=== PATIENT | female | born 2000 | race Caucasian/White ===

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

== ENCOUNTER → 2020-01-19 09:28 | Outpatient (CLI) | payer OTHER, SELFPAY ==
--- NOTE | 2020-01-19 09:35 | XR_ITS ---
PROCEDURE: XR KNEE LT 4V weightbearing CLINICAL INDICATION: left knee pain COMPARISON: KNEE3R KNEE-3 VIEWS-RT from 08/18/2017 KNEE3R KNEE-3 VIEWS-RT from 08/20/2017 [id number] XR knee RT 3V from 04/14/2018 XR KNEE LT 3V from 01/12/2020 FINDINGS: No fracture or dislocation. No lytic or blastic change. There is normal mineralization. There is mild degenerative loss of medial compartment cartilaginous joint space. Small sclerotic foci in the distal femur are unchanged and likely benign bone islands. Other findings:None. IMPRESSION: No acute findings. Dictated by: Basil Montgomery 01/19/2020 10:12 Electronically signed by Basil Montgomery in [place] 01/19/2020 10:12
--- NOTE | 2020-01-19 09:35 | XR_ITS ---
PROCEDURE: XR SHOULDER RT 1V-axillary view CLINICAL INDICATION: right shoulder pain COMPARISON: [id number] [id number] VIEWS from 03/05/2015 XR SHOULDER RT MIN 2V from 01/12/2020 FINDINGS: There is no acute fracture dislocation or other focal bony lesion. Previous shoulder exam raise the question of AC joint separation. Dedicated AC joint exam with and without weights may be useful to further evaluate if felt to be clinically indicated. IMPRESSION: No acute findings. Dictated by: Basil Montgomery 01/19/2020 10:15 Electronically signed by Basil Montgomery in [place] 01/19/2020 10:15
== END ==
PROVIDERS: PCP Emergency Medicine; Visit Provider Orthopaedic Surgery
DX: M25.562 Pain in left knee (principal); M25.511 Pain in right shoulder
CPT/HCPCS: 73020; 73564

== ENCOUNTER 2020-02-12 09:00 | Outpatient (RCR) | payer OTHER, SELFPAY ==
--- NOTE | 2020-02-01 16:04 | HMH.PTOPEV ---
PT Outpatient Evaluation Rehab PT Outpatient Evaluation Start: 02/01/20 15:01 Freq: Status: Active Protocol: Document 02/01/20 15:40 ANGELA (Rec: 02/01/20 16:04 ANGELA [id number]) Electronically Signed By Jeovanny Herzog, PT 02/01/20 15:40 Outpatient Therapy Subjective History Subjective History Pt presents s/p work-related injury ~2 weeks d/t fall, with insult to R shoulder and L knee. Pt reports 'it felt like my left knee hyperextended and I landed on my right shoulder'. Pt reports ' grinding' in R SH with activity, and 'inside and back ' instability in L knee w/wt. bearing activity. 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 Chief Complaint Pain,Swelling,Gives out/ Unstable,Weakness Symptom Type Ache,Dull Symptoms Relieved By Rest/Positioning,Heat Symptoms Aggravated By Standing,Physical Activity, Twisting,Walking,Lifting Prior Functional Limitations None Current Functional Limitations Reaching,Lifting,Housework, Standing,Squatting,Walking, Stairs Symptom Description Constant but Variable Level of pain today (0-10) 7 Pain scale - at its best (0-10) 5 Pain scale - at its worst (0-10) 9 Shoulder/Elbow Eval Shoulder Objective Measurements Palpation Tenderness tenderness shoulder exam standard right Shoulder Palpation Overall Comment 3/4-global (AC,UT MM, ANT RTC, POST RTC) Posture Scapular Posture Standing Position (L) Protracted,(R) Protracted Flexibilty Deficits Pectoralis Major Muscle Length (R) Mild Tightness,(L) Mild Tightness Upper Trapezius Muscle Length (R) Moderate Tightness Shoulder ROM Right Shoulder Abduction Active Range of 0-55 Motion (degrees) Shoulder Abduction Passive Range of 0-90 Motion (degrees) Shoulder Flexion Active Range of Motion 0-65 (degrees) Query Text: Shoulder Flexion Passive Range of Motion 0-90 (degrees) Shoulder External Rotation Passive Range 0-70 of Motion (degrees) Shoulder Internal Rotation Passive Range 0-70 of Motion (degrees) Shoulder MMT Shoulder Abduction Strength Grade 3- Fair-
== END 2020-02-12 09:05 | disposition home or self-care (01) ==
LOC: PT 09:00
PROVIDERS: Visit Provider Orthopaedic Surgery
DX: S49.90XA Unspecified injury of shoulder and upper arm, unspecified arm, initial encounter (principal); S83.92XA Sprain of unspecified site of left knee, initial encounter
CPT/HCPCS: 97010; 97014; 97035; 97110; 97163; G0283

== ENCOUNTER 2020-03-27 23:03 | Emergency (ER) | payer OTHER, SELFPAY ==
[2020-03-27 23:21] VITALS: BP 103/82; PULSE 121; RESP 14; TEMP 37; O2SAT 95; BMI 31.9
[2020-03-28] VITALS: BP 104/66; PULSE 118; RESP 14; O2SAT 96
[2020-03-28 00:30] VITALS: BP 103/70; PULSE 122; RESP 14; O2SAT 97
[2020-03-28 00:46] VITALS: BP 104/71; PULSE 85; RESP 16; TEMP 36.9; O2SAT 99
--- NOTE | 2020-03-28 00:46 | HMH.EDWNDL ---
ED Disposition Clinical Impression: Laceration Disposition: Home, Self-Care Condition on Discharge: Good Instructions: DI for Laceration Repair Additional Instructions: sutures out 10 days and recheck if needed Referrals: Murtaza Rivera MD [Primary Care Provider] - - Critical Care Critical Care Time: No Attestation: On 03/27/20, the high probability of a clinically significant, sudden or life threatening deterioration of the following system(s) required my full and direct attention, intervention and personal management. The time I documented below is in addition to time spent performing reported procedures but includes the following listed in this critical care notation. Medical Decision Making - Medical Records Medical records reviewed: Yes: I reviewed the patient's medical records. - Сергей Inquiry Pt receiving controlled substance: No Vital Signs: 03/27/20 23:21 03/28/20 00:00 03/28/20 00:30 Temperature 98.6 F Temperature Source Oral Pulse Rate [Left Brachial] 121 H 118 H 122 H Respiratory Rate 14 14 14 Blood Pressure [Left Arm] 103/82 L 104/66 L 103/70 L Blood Pressure Mean [Left Arm] 89 78 81 Blood Pressure Source [Left Arm] Automatic Cuff Automatic Cuff Automatic Cuff Blood Pressure Position [Left Arm] Sitting Sitting Sitting 02 Sat by Pulse Oximetry 95 96 97 Oxygen Delivery Method Room Air Room Air Room Air Wound/Laceration HPI - General Chief Complaint: Wound/Laceration Stated Complaint: AO 03/27/20 22:50 laceration to right hand Time Seen by Provider: 03/28/20 00:00 Mode of Arrival: Ambulatory Source of Information: Patient, Medical Record Limitations: No Limitations Description of Symptoms (Recalled from ER Triage Doc. by RN): Patient reports she was remodleing on her house and they were taking out window when she fell and her had went through the glass window. Patient has a lac at the base of her right thumb and one at the base of her right pinky. - History of Present Illness HPI narrative: rt hand lac working with windows at home Onset (ago): hour(s) Extremity Location: Right: hand Place: home Patient tetanus UTD: Yes Context: accidental Associated symptoms: none - Related Data Home Medications Medication Instructions Recorded Confirmed quetiapine 100 mg tablet 100 mg PO DAILY 12/28/19 02/19/20 sertraline 50 mg tablet 50 mg PO DAILY 12/28/19 02/19/20 Previous Rx's Medication Instructions Recorded Albuterol Sulfate [Albuterol HFA 1 - 2 puffs IH Q4-6H PRN #1 inh 09/06/19 Inhaler] Meloxicam [Mobic 15 mg tab] 15 mg PO DAILY #10 tab 01/13/20 Allergies Allergy/AdvReac Type Severity Reaction Status Date / Time tomato Allergy Unknown UTI Verified 02/19/20 09:23 [From TOMATOES (FOOD/DRUG)] azithromycin Allergy seizure Verified 02/19/20 09:23 activity dexamethasone Allergy abnormal Verified 02/19/20 09:23 breathing pattern and syncope venom-wasp Allergy Verified 02/19/20 09:23 Bumble Bee Allergy Unknown Uncoded 02/19/20 09:23 From TOMATOES (FOOD/DRUG) Allergy Unknown UTI Uncoded 02/19/20 09:23 [facility] History - Hepatitis A Screen Drug use history?: No High risk sexual behaviors?: No History of sexually transmitted infection?: No Currently employed?: No Childcare worker?: No Do you have indoor plumbing?: Yes Do you have electricity?: Yes Attestation statement:: This patient has been screened for Hepatitis A risk factors. I have reviewed the patient's past medical history: Yes Medical History: Reports:: Anxiety, Asthma, Depression, Migraine Denies:: Cancer, Diabetes Mellitus Type 1, Diabetes Mellitus Type 2, Hypertension, MRSA Other Medical History: Reports: Other Laterality Cases: Left: Other, Bilateral: Myringotomy (Ear Tubes) Other Surgeries: Yes: No Previous Surgery, Other Amputation: No Fractures: Yes Comment: 2001- Broken arm w/pins (left). 2004- Adenoids (ear tubes) - Social History Smoking S
== END 2020-03-28 00:59 | disposition home or self-care (01) ==
PROVIDERS: Emergency Provider Emergency Medicine; PCP Emergency Medicine
DX: S61.011A Laceration without foreign body of right thumb without damage to nail, initial encounter (principal); W01.110A Fall on same level from slipping, tripping and stumbling with subsequent striking against sharp glass, initial encounter; Y92.019 Unspecified place in single-family (private) house as the place of occurrence of the external cause; F41.8 Other specified anxiety disorders; J45.909 Unspecified asthma, uncomplicated; G43.709 Chronic migraine without aura, not intractable, without status migrainosus; F17.210 Nicotine dependence, cigarettes, uncomplicated
CPT/HCPCS: 12001; 99282

== ENCOUNTER → 2020-04-18 07:52 | Outpatient (CLI) | payer OTHER, SELFPAY ==
--- NOTE | 2020-04-18 07:57 | MR_ITS ---
PROCEDURE: MR KNEE LT WO CON CLINICAL INDICATION: left knee pain PT HYPEREXTENDED KNEE [id number] AGO. KNEE INSTABILITY, ENTIRE KNEE PAIN. PRIOR X-RAY 01-19-20 COMPARISON: XR KNEE LT 4V from 01/19/2020 TECHNIQUE: Routine multiplanar multi echo sequences are performed without gadolinium enhancement. FINDINGS: The cruciate ligaments, collateral ligaments, patellar tendon, and quadriceps tendon have an unremarkable appearance. No meniscal tear. There is bone marrow edema involving the medial femoral condyle anteriorly, the intercondylar region of the distal femur, in the proximal tibia centrally and anteriorly. There is a small amount of fluid in the knee joint space. No evidence of Springer's cyst. IMPRESSION: 1. No evidence of internal derangement. 2. Bone marrow edema of the distal femur and proximal tibia as described above which may reflect contusion in the setting of trauma Dictated by: Nguyễn Delaney MD 04/19/2020 08:43 Electronically signed by Nguyễn Delaney MD in [place] 04/19/2020 08:43
== END ==
PROVIDERS: PCP Emergency Medicine; Visit Provider Orthopaedic Surgery
DX: S83.92XA Sprain of unspecified site of left knee, initial encounter (principal)
CPT/HCPCS: 73721

== ENCOUNTER 2020-08-01 11:44 | Emergency (ER) | payer OTHER, SELFPAY ==
[2020-08-01 13:09] VITALS: BP 126/81; PULSE 113; RESP 18; TEMP 36.9; O2SAT 96; BMI 30.7
--- NOTE | 2020-08-01 13:46 | HMH.EDUTC ---
[facility] – [place] Disposition Clinical Impression: Asthma exacerbation Qualifiers: Asthma severity: unspecified severity Asthma persistence: unspecified Qualified Code(s): J45.901 - Unspecified asthma with (acute) exacerbation Disposition: Home, Self-Care Condition on Discharge: Good Instructions: Asthma -- Adult, DI for Asthma -- Adult, Preventing the Spread of Coronavirus Discharge Instructions Additional Instructions: Drink plenty of fluids. Take tylenol for pain or fever. Take the medications as directed. Follow up with your regular doctor. GO TO THE ER FOR ANY WORSENING SYMPTOMS FOLLOW THE DIRECTIONS ON THE COVID-19 HAND OUT THAT WE GAVE YOU REGARDING SELF-ISOLATION UNTIL YOU KNOW YOUR COVID-19 RESULTS Prescriptions: Albuterol Sulfate [Albuterol Sulfate Hfa] 2 puffs IH Q6HP PRN 30 Days #1 hfa.aer.ad PRN Reason: Shortness Of Breath Transmission Status: Received by [id number] Cefdinir [Omnicef 300mg Capsule] 300 mg PO BID #20 cap Transmission Status: Received by [id number] Referrals: Murtaza Rivera MD [Primary Care Provider] - Forms: Work/School Release Time of Disposition: 13:49 Medical Decision Making - Medical Records Medical records reviewed: No: I reviewed the patient's medical records. - Сергей Inquiry Pt receiving controlled substance: No Vital Signs: 08/01/20 13:09 08/01/20 14:11 Temperature 98.4 F 98.4 F Temperature Source Oral Oral Pulse Rate 113 H Pulse Rate [Radial] 113 H Respiratory Rate 18 18 Blood Pressure 126/81 Blood Pressure [Right Arm] 126/81 Blood Pressure Mean [Right Arm] 96 Blood Pressure Source Automatic Cuff Blood Pressure Source [Right Arm] Automatic Cuff Blood Pressure Position Sitting Blood Pressure Position [Right Arm] Sitting 02 Sat by Pulse Oximetry 96 Oxygen Delivery Method Room Air Room Air - Lab Data Lab results reviewed: Yes: I reviewed the patient's lab results. Orders (Tests/Meds): ORDERS Category Date Time Status Covid-19 Nasal PCR Sendout Darell Routine Lab 08/01/20 13:40 Received [facility] [place] HPI - General Stated complaint: sob cough sore throat headache Time Seen by Provider: 08/01/20 13:15 Mode of Arrival: Ambulatory Source of Information: Patient Limitations: No Limitations Description of Symptoms (Recalled from Triage Doc. by RN): COUGH, SORE THROAT, EAR PAIN HEENT Symptoms (Recalled from RN notes): Yes Resp Symptoms (Recalled from RN notes): No Skin Symptoms (Recalled from RN notes): No MS Symptoms (Recalled from RN notes): No Functional Status (Recalled from RN notes): WNL - History of Present Illness Provider Complaint: She c/o sore throat, cough and feeling bad for the past 2 days. - Related Data Previous Rx's Medication Instructions Recorded prenat.vits,leah,ugo-[id number] 1 tab PO DAILY #90 tab 07/18/20 Albuterol Sulfate [Albuterol 2 puffs IH Q6HP PRN 30 Days #1 08/01/20 Sulfate Hfa] hfa.aer.ad Cefdinir [Omnicef 300mg Capsule] 300 mg PO BID #20 cap 08/01/20 Allergies Allergy/AdvReac Type Severity Reaction Status Date / Time tomato Allergy Unknown UTI Verified 07/18/20 09:22 [From TOMATOES (FOOD/DRUG)] azithromycin Allergy seizure Verified 07/18/20 09:22 activity dexamethasone Allergy abnormal Verified 07/18/20 09:22 breathing pattern and syncope venom-wasp Allergy Verified 07/18/20 09:22 Bumble Bee Allergy Unknown Uncoded 07/18/20 09:22 From TOMATOES (FOOD/DRUG) Allergy Unknown UTI Uncoded 07/18/20 09:22 - Worker's Comp Is this a Worker's Comp case?: No [facility] History - Hepatitis A Screen Drug use history?: No High risk sexual behaviors?: No History of sexually transmitted infection?: No Currently employed?: No Childcare worker?: No Do you have indoor plumbing?: Yes Do you have electricity?: Yes Attestation statement:: This patient has been screened for Hepatitis A risk factors. I have reviewed the patient's past medical history
[2020-08-01 14:11] VITALS: BP 126/81; PULSE 113; RESP 18; TEMP 36.9; O2SAT 96
[2020-08-02 13:55] LABS: Covid-19 Nasal PCR Sendout Lex Not Detected
== END 2020-08-01 14:12 | disposition home or self-care (01) ==
PROVIDERS: Emergency Provider Nurse Practitioner Family; PCP Emergency Medicine
DX: J45.901 Unspecified asthma with (acute) exacerbation (principal); Z20.828 Contact with and (suspected) exposure to other viral communicable diseases
CPT/HCPCS: 99201; U0004

== ENCOUNTER → 2020-09-19 14:06 | Outpatient (CLI) | payer OTHER, SELFPAY ==
[2020-09-19 17:16] LABS: HCG,Quantitative < 2 mIU/ml (0-5.42)
== END ==
PROVIDERS: Visit Provider Obstetrics & Gynecology
DX: Z34.90 Encounter for supervision of normal pregnancy, unspecified, unspecified trimester (principal)
CPT/HCPCS: 36415; 84702

== ENCOUNTER → 2020-09-24 10:48 | Outpatient (CLI) | payer OTHER, SELFPAY ==
[2020-09-24 12:40] LABS: HCG,Quantitative < 2 mIU/ml (0-5.42)
== END ==
PROVIDERS: Visit Provider Obstetrics & Gynecology
DX: Z32.00 Encounter for pregnancy test, result unknown (principal)
CPT/HCPCS: 36415; 84702

== ENCOUNTER → 2020-10-07 16:37 | Outpatient (CLI) | payer OTHER, SELFPAY ==
[2020-10-07 18:59] LABS: HCG,Quantitative < 2 mIU/ml (0-5.42)
== END ==
PROVIDERS: Visit Provider Obstetrics & Gynecology
DX: Z32.00 Encounter for pregnancy test, result unknown (principal)
CPT/HCPCS: 36415; 84702

== ENCOUNTER 2020-10-18 13:54 | Emergency (ER) | payer OTHER, SELFPAY ==
[2020-10-18 14:29] VITALS: BP 105/75; PULSE 79; RESP 16; TEMP 36.6; O2SAT 98; BMI 31.3
--- NOTE | 2020-10-18 14:43 | HMH.EDUTC ---
[facility] [place] Disposition Clinical Impression: Otitis media Qualifiers: Otitis media type: unspecified Laterality: right Qualified Code(s): H66.91 - Otitis media, unspecified, right ear Disposition: Home, Self-Care Condition on Discharge: Good Instructions: Ear Infections (Alternative Therapy), Middle Ear Infection, Cefdinir Additional Instructions: *Monitor Temp, Over the counter Motrin or Tylenol as directed/as needed Tylenol every 4 hours and Motrin every 6 hours (as long as your family doctor has told you that you can take it) for fever or pain. and straight to ER if unable to lower temp less than 101.0 after medication given *Warm salt water gargles may help to soothe the throat *Throat Lozenges *Warm fluids like tea with honey may help to soothe the throat *Sleep elevated *Humidifier/Vaporizer * Follow up IMMEDIATELY for new or worsening symptoms or no Noticeable improvement over the next 48-72 hours. 911 for difficulty breathing or swallowing You were tested for today for COVID19 your test result should be back in the next 24-48 hours, you may call to the [facility] to see if your test results are back in the next 48 hours [phone] [facility] hours are 9am-9pm You was given a handout with instructions for Self Quarantine and Self isolation for while you wait on test results and what to do if they are positive If you are positive the Health Dept will be contacting you also Prescriptions: Cefdinir [Omnicef 300mg Capsule] 300 mg PO BID #20 cap Transmission Status: Received by [id number] Referrals: Murtaza Rivera MD [Primary Care Provider] - As needed Time of Disposition: 14:48 Medical Decision Making - Сергей Inquiry Pt receiving controlled substance: No Сергей was queried for this patient: No Vital Signs: 10/18/20 14:29 10/18/20 14:54 Temperature 97.8 F 98.2 F Temperature Source Oral Oral Pulse Rate 78 Pulse Rate [Right] 79 Respiratory Rate 16 16 Blood Pressure 110/74 Blood Pressure [Right Arm] 105/75 L Blood Pressure Mean [Right Arm] 85 Blood Pressure Source Automatic Cuff Blood Pressure Source [Right Arm] Automatic Cuff Blood Pressure Position Sitting Blood Pressure Position [Right Arm] Sitting 02 Sat by Pulse Oximetry 98 Oxygen Delivery Method Room Air Room Air Orders (Tests/Meds): ORDERS Category Date Time Status Covid-19 Nasal PCR ([facility]) Routine Lab 10/18/20 13:45 Received Medical Decision Narrative: Patient states that she has taken Cefdnir before without reaction or complications [facility] [place] HPI - General Stated complaint: sore throat, SOA Time Seen by Provider: 10/18/20 14:43 Mode of Arrival: Ambulatory Source of Information: Patient Limitations: No Limitations Description of Symptoms (Recalled from Triage Doc. by RN): SOA, nausea, diarrhea, cough that started yesterday HEENT Symptoms (Recalled from RN notes): Yes (SOA, nausea, diarrhea) Resp Symptoms (Recalled from RN notes): No Skin Symptoms (Recalled from RN notes): No MS Symptoms (Recalled from RN notes): No Functional Status (Recalled from RN notes): na - History of Present Illness Provider Complaint: Patient state that she has been having pain in her right ear, sinus congestion, cough and sore throat State that yesterday she started feeling worse and today she wasnt feeling any better so she came in to get checked - Related Data Previous Rx's Medication Instructions Recorded prenat.vits,leah,htt-zorz-[id number] 1 tab PO DAILY #90 tab 07/18/20 Albuterol Sulfate [Albuterol 2 puffs IH Q6HP PRN 30 Days #1 08/01/20 Sulfate Hfa] hfa.aer.ad Cefdinir [Omnicef 300mg Capsule] 300 mg PO BID #20 cap 10/18/20 Allergies Allergy/AdvReac Type Severity Reaction Status Date / Time tomato Allergy Unknown UTI Verified 09/19/20 13:40 [From TOMATOES (FOOD/DRUG)] azithromycin Allergy seizure Verified 09/19/20 13:40 activity dexamethasone Allergy abnormal Verified 09/19/20 13:40 breathing pattern a
[2020-10-18 14:54] VITALS: BP 110/74; PULSE 78; RESP 16; TEMP 36.8; O2SAT 98
== END 2020-10-18 14:54 | disposition home or self-care (01) ==
PROVIDERS: Emergency Provider Nurse Practitioner; PCP Emergency Medicine
DX: Z20.822 Contact with and (suspected) exposure to COVID-19 (principal); H66.91 Otitis media, unspecified, right ear; F41.8 Other specified anxiety disorders; J45.909 Unspecified asthma, uncomplicated; I10 Essential (primary) hypertension; F17.210 Nicotine dependence, cigarettes, uncomplicated; Z79.899 Other long term (current) drug therapy
CPT/HCPCS: 99202; G0463; U0003

== ENCOUNTER → 2021-01-08 13:39 | Outpatient (CLI) | payer OTHER, SELFPAY ==
[2021-01-08 13:54] LABS: Basophils % 0.6 % (0.1-2.0); Eosinophils # 0.2 K/mm3 (0.0-0.4); Eosinophils % 2.3 % (0.1-12.0); Hemoglobin 14.3 g/dL (12.2-16.2); Lymphocytes # 1.6 K/mm3 (0.7-4.5); Lymphocytes % 24.4 % (10-50); Mean Corpuscular HGB Conc 33.1 g/dL (31.8-35.4); Mean Corpuscular Hemoglobin 28.1 pg (27.0-31.2); Mean Corpuscular Volume 84.9 fl (81-99); Mean Platelet Volume 9.3 fl (7.4-10.4); Monocytes # 0.6 K/mm3 (0.1-1.0); Monocytes % 9.4 % (1.7-9.3); Neutrophils # 4.2 K/mm3 (1.8-7.8); Neutrophils % 63.3 % (37.0-80.0); Platelet Count 228 K/mm3 (142-424); Red Blood Count 5.07 M/mm3 (4.20-5.40); Red Cell Distribution Width 13.5 % (11.5-17.5); White Blood Count 6.6 K/mm3 (4.5-13.0)
[2021-01-08 14:20] LABS: Chloride 108 mmol/L (98-107); Potassium 4.6 mmoL/L (3.5-5.1); Sodium 141 mmol/L (136-145)
[2021-01-08 14:22] LABS: Blood Urea Nitrogen 21 mg/dl (7-17); Estimated Glomerular Filt Rate 127 ml/min (>60); GFR (African American) 154 ML/MIN (>60)
[2021-01-08 14:23] LABS: Alanine Aminotransferase 15 U/L (12-78); Albumin Level 4.6 g/dl (3.5-5.0); Alkaline Phosphatase 64 U/L (38-126); Anion Gap 12.6 mEq/L (5-15); Aspartate Amino Transferase 23 U/L (14-36); Bilirubin,Total 0.6 mg/dl (0.2-1.3); Calcium 9.4 mg/dl (8.4-10.2); Carbon Dioxide 25 mmol/L (22.0-30.0); Cholesterol 134 mg/dl (140-200); Globulin 2.3 g/dL (1.3-3.2); Glucose 110 mg/dl (74-100); Total Protein,Serum 6.9 g/dl (6.3-8.2); Triglycerides 56 mg/dl (30-150); VLDL Cholesterol 11 mg/dL (0-40)
[2021-01-08 14:24] LABS: Chol/HDL Ratio 2.7 (1-3.5); HDL Cholesterol 49 mg/dl (40-60)
[2021-01-08 14:35] LABS: Direct LDL Cholesterol 58.88 mg/dL (100-129)
[2021-01-08 14:41] LABS: Free T4 (Free Thyroxine) 1.19 ng/dl (0.78-2.19)
[2021-01-08 14:55] LABS: Thyroid Stimulating Hormone 3.28 uIU/mL (0.465-4.68)
[2021-01-08 15:23] LABS: 25-OH Vitamin D, Total < 12.8 ng/mL (30-100)
[2021-01-10 14:01] LABS: FSH 4.6 mIU/mL (.); LH 6.1 mIU/mL (.); Progesterone 0.5 ng/mL (.)
[2021-01-16 10:41] LABS: Estrogen 72 pg/mL (.)
== END ==
PROVIDERS: Visit Provider Physician Assistant
DX: Z00.00 Encounter for general adult medical examination without abnormal findings (principal); N92.6 Irregular menstruation, unspecified; R53.83 Other fatigue
CPT/HCPCS: 80053; 80061; 82306; 82672; 83001; 83002; 84144; 84439; 84443; 85025

== ENCOUNTER 2021-03-04 10:00 | Outpatient (RCR) | payer OTHER, SELFPAY | END 2021-03-04 10:05 | disposition home or self-care (01) | LOC: OT 10:00 | PROVIDERS: PCP Physician Assistant; Visit Provider Orthopaedic Surgery | DX: M25.511 Pain in right shoulder (principal); Z98.890 Other specified postprocedural states | CPT/HCPCS: 97014; 97110; 97140; 97164; 97165; G0283 ==

== ENCOUNTER 2021-04-13 13:38 | Emergency (ER) | payer OTHER, SELFPAY ==
[2021-04-13 14:00] VITALS: BP 136/87; PULSE 86; RESP 19; TEMP 36.8; O2SAT 98; BMI 25.2
[2021-04-13 14:24] LABS: Apearance,Urine Cloudy (Clear); Color,Urine Dark Yellow (Yellow); PH,Urine 8.5 (5.0-8.5)
[2021-04-13 14:25] LABS: Bilirubin,Urine Negative (Negative); Blood, Urine 1+ (Negative); Glucose,Urine (UA) Negative (Negative); Ketones,Urine Negative (Negative); Protein,Urine 1+ (Negative); UTC Leukocyte Esterase,Urine Trace (Negative); UTC Nitrate,Urine Negative (Negative); Urobilinogen,Urine 0.2 EU/dl (0.2)
--- NOTE | 2021-04-13 14:46 | HMH.EDUTC ---
[facility] [place] Disposition Clinical Impression: UTI (urinary tract infection) Qualifiers: Urinary tract infection type: site unspecified Hematuria presence: with hematuria Qualified Code(s): N39.0 - Urinary tract infection, site not specified; R31.9 - Hematuria, unspecified Disposition: Home, Self-Care Condition on Discharge: Good Instructions: Nitrofurantoin, Urinary Tract Infection, DI for Urinary Incontinence Additional Instructions: *Increase fluids. Water not Soda or Tea *Start antibiotic immediately and be sure to take as ordered for the FULL length of time although you should start to see improvement over the next 48 hours *Be SURE to follow up anytime for new or worsening symptoms with your family doctor. AND in 48 hours for urine culture results with your family doctor, if you do not have a doctor then you may call back to the [facility] for urine culture results and further treatment. We do recommend that you choose and establish care with a Primary Care Physician. AND follow up with them in 10-14 days to repeat UA to ensure infection is resolved and blood no longer present *Be sure to let your PCP know that we sent urine cultures from the [facility] so they can follow up to ensure that you area the on the correct antibiotic Call your doctor office and make appointment for 48 hours (2 days from today) to follow up and get the results of your urine culture and further treatment Make sure you follow up with your Family Doctor and OBGYN for further evaluation of urinary incontinence Return if needed Straight to ER if any life threatening symptoms Prescriptions: Nitrofurantoin Monohyd/M-Cryst [Macrobid 100 mg Capsule] 100 mg PO BID 5 Days #10 cap Transmission Status: Pending to [facility] Phenazopyridine HCl [Pyridium 200mg Tablet] 200 pow PO TID #6 tab Transmission Status: Pending to [facility] Referrals: Savanah Delgado PA [Primary Care Provider] - As needed Sigifredo Land MD [Staff Physician] - Time of Disposition: 14:59 Medical Decision Making - Сергей Inquiry Pt receiving controlled substance: No Сергей was queried for this patient: No Vital Signs: 04/13/21 14:00 Temperature 98.3 F Temperature Source Oral Pulse Rate [Right Brachial] 86 Respiratory Rate 19 Blood Pressure [Right Arm] 136/87 Blood Pressure Mean [Right Arm] 103 Blood Pressure Source [Right Arm] Automatic Cuff Blood Pressure Position [Right Arm] Sitting 02 Sat by Pulse Oximetry 98 Oxygen Delivery Method Room Air - Lab Data Lab results reviewed: Yes: I reviewed the patient's lab results. Lab Results 04/13/21 13:48: Urine Color Dark yellow, Urine Appearance Cloudy, Urine pH 8.5, Ur Specific [place] 1.020, Urine Protein 1+, Urine Glucose (UA) Negative, Urine Ketones Negative, Urine Blood 1+, Urine Nitrate Negative, Urine Bilirubin Negative, Urine Urobilinogen 0.2, Ur Leukocyte Esterase Trace Orders (Tests/Meds): ORDERS Category Date Time Status Urine Culture Stat Micro 04/13/21 14:09 Received Medical Decision Narrative: Discussed with patient and due to reports of urinary incontinence recommended transfer to he ED for further work up and evaluation and patient declined states that she wants treated for the UTI and she will follow up with OBGYN and PCP for further evaluation if symptoms continue or worsen [facility] [place] HPI - General Stated complaint: urinary incontenence/pain after urinating Time Seen by Provider: 04/13/21 14:46 Mode of Arrival: Ambulatory Source of Information: Patient Limitations: No Limitations Description of Symptoms (Recalled from Triage Doc. by RN): PATIENT C/O URINARY INCONTINANCE, PAIN AND FREQUENCY WITH URINATION X 4 DAYS HEENT Symptoms (Recalled from RN notes): No Resp Symptoms (Recalled from RN notes): No Skin Symptoms (Recalled from RN notes): No MS Symptoms (Recalled from RN notes): No Functional Status (Recalled from RN notes): WNL - History of Present Illness Provider Complain
[2021-04-13 15:08] VITALS: BP 136/87; PULSE 86; RESP 19; TEMP 36.8; O2SAT 98
== END 2021-04-13 15:11 | disposition home or self-care (01) ==
PROVIDERS: Emergency Provider Nurse Practitioner; PCP Physician Assistant
DX: N30.01 Acute cystitis with hematuria (principal); F41.8 Other specified anxiety disorders; J45.909 Unspecified asthma, uncomplicated; Z87.891 Personal history of nicotine dependence
CPT/HCPCS: 81003; 87086; 87088; 87186; 99202; G0463

== ENCOUNTER 2021-06-17 15:16 | Emergency (ER) | payer OTHER, SELFPAY ==
[2021-06-17 15:16] VITALS: BP 124/70; PULSE 80; RESP 14; TEMP 37; O2SAT 98
[2021-06-17 16:00] VITALS: BP 124/70; PULSE 80; RESP 16; TEMP 37; O2SAT 98
--- NOTE | 2021-06-17 18:17 | HMH.EDUTC ---
[facility] [place] Disposition Clinical Impression: COVID-19 Disposition: Home, Self-Care Condition on Discharge: Good Instructions: DI for COVID-19 (Suspected or Confirmed ) Referrals: Murtaza Rivera MD [Primary Care Provider] - Forms: Work/School Release Medical Decision Making - Сергей Inquiry Pt receiving controlled substance: No Сергей was queried for this patient: No Vital Signs: 06/17/21 15:16 06/17/21 16:00 Temperature 98.6 F 98.6 F Temperature Source Temporal Artery Scan Oral Pulse Rate 80 Pulse Rate [Right] 80 Respiratory Rate 14 16 Blood Pressure 124/70 Blood Pressure [Right Arm] 124/70 Blood Pressure Mean [Right Arm] 88 Blood Pressure Source Automatic Cuff Blood Pressure Source [Right Arm] Automatic Cuff Blood Pressure Position [Right Arm] Sitting 02 Sat by Pulse Oximetry 98 Oxygen Delivery Method Room Air Room Air Orders (Tests/Meds): ORDERS Category Date Time Status Covid-19 Nasal PCR ([facility]) Routine Lab 06/17/21 16:10 Received [facility] [place] HPI - General Stated complaint: Covid test,Sore throat,cough,SALAZAR Congestion Time Seen by Provider: 06/17/21 15:20 Mode of Arrival: Ambulatory Source of Information: Patient Limitations: No Limitations Description of Symptoms (Recalled from Triage Doc. by RN): PT advises she has been exposed to covid. c/o cough and congestion HEENT Symptoms (Recalled from RN notes): No Resp Symptoms (Recalled from RN notes): No Skin Symptoms (Recalled from RN notes): No MS Symptoms (Recalled from RN notes): No Functional Status (Recalled from RN notes): na - History of Present Illness Provider Complaint: Patient states that she wanted to get tested for COVID due to recent exposure States that she has been having coughing and congestion State that she wanted to get tested for COVID - Related Data Previous Rx's Medication Instructions Recorded prenat.vits,leah,puv-hmdo-cpoho 1 tab PO DAILY #90 tab 07/18/20 Albuterol Sulfate [Albuterol 2 puffs IH Q6HP PRN 30 Days #1 08/01/20 Sulfate Hfa] hfa.aer.ad metformin 500 mg tablet,extended 500 mg PO DAILY #30 tab 01/08/21 release 24 hr cholecalciferol (vitamin D3) 25 25 mcg PO DAILY #30 cap 01/10/21 mcg (1,000 unit) capsule ergocalciferol (vitamin D2) 1,250 1,250 mcg PO WEEKLY #5 cap 01/10/21 mcg (50,000 unit) capsule phenazopyridine 100 mg tablet 100 mg PO TID PRN 3 Days #9 tab 04/25/21 Allergies Allergy/AdvReac Type Severity Reaction Status Date / Time tomato Allergy Unknown UTI Verified 04/25/21 13:45 [From TOMATOES (FOOD/DRUG)] azithromycin Allergy seizure Verified 04/25/21 13:45 activity dexamethasone Allergy abnormal Verified 04/25/21 13:45 breathing pattern and syncope venom-wasp Allergy Verified 04/25/21 13:45 Bumble Bee Allergy Unknown Uncoded 04/25/21 13:45 From TOMATOES (FOOD/DRUG) Allergy Unknown UTI Uncoded 04/25/21 13:45 - Worker's Comp Is this a Worker's Comp case?: No [facility] History - Hepatitis A Screen Drug use history?: No High risk sexual behaviors?: No History of sexually transmitted infection?: No Currently employed?: No Childcare worker?: No Do you have indoor plumbing?: Yes Do you have electricity?: Yes Attestation statement:: This patient has been screened for Hepatitis A risk factors. I have reviewed the patient's past medical history: Yes Medical History: Reports:: Anxiety, Asthma, Depression, Migraine Denies:: Cancer, Diabetes Mellitus Type 1, Diabetes Mellitus Type 2, Hypertension, MRSA Other Medical History: Reports: Other Laterality Cases: Left: Other, Bilateral: Myringotomy (Ear Tubes) Other Surgeries: Yes: No Previous Surgery, Other Amputation: No Fractures: Yes Comment: 2001- Broken arm w/pins (left). 2004- Adenoids (ear tubes). Right shoulder 2020 - Social History Smoking Status: Former smoker Tobacco Type: cigarettes # Packs/Day (cigarettes): 1 Alcohol Intake: never Alcohol Intake Frequency:: other Substance Use Type
== END 2021-06-17 16:05 | disposition home or self-care (01) ==
PROVIDERS: Emergency Provider Nurse Practitioner; PCP Emergency Medicine
DX: Z20.822 Contact with and (suspected) exposure to COVID-19 (principal); F41.8 Other specified anxiety disorders; J45.909 Unspecified asthma, uncomplicated
CPT/HCPCS: 99202; G0463; U0003

== ENCOUNTER 2021-09-14 16:35 | Emergency (ER) | payer SELFPAY ==
--- NOTE | 2021-09-14 16:48 | XR_ITS ---
PROCEDURE INFORMATION: Exam: XR Left Foot Exam date and time: 09/14/2021 4:48 PM Age: 20 years old Clinical indication: Injury or trauma; Other: Dropped a dresser on left 2nd toe. ; Blunt trauma; Toes; Left lesser toe(s); Injury details: Dropped a dresser on left 2nd toe Wednesday. ; Additional info: Dropped object on foot TECHNIQUE: Imaging protocol: XR Left foot. Views: 3 or more views. COMPARISON: MR KNEE LT WO CON 04/18/2020 8:08 AM FINDINGS: Bones/joints: Alignment is normal. Tarsals, metatarsals, and phalanges are intact. No fracture is visualized. No destructive osseous lesions are seen. No inflammatory osseous erosions are visualized. Soft tissues: There are no abnormal soft tissue calcifications. IMPRESSION: No acute radiographic abnormality of the foot.
[2021-09-14 17:18] VITALS: BP 120/89; PULSE 82; RESP 22; TEMP 36.7; O2SAT 99; BMI 33.7
--- NOTE | 2021-09-14 17:23 | HMH.EDUTC ---
[facility] [place] Disposition Clinical Impression: Toe contusion Qualifiers: Encounter type: initial encounter Toe: lesser toe Damage to nail status: without damage Laterality: left Qualified Code(s): S90.122A - Contusion of left lesser toe(s) without damage to nail, initial encounter Disposition: Home, Self-Care Condition on Discharge: Good Instructions: How To Perform RICE (Rest, Ice, Compress, Elevate) Additional Instructions: *weight bearing as tolerated *RICE, Rest the extremity, Ice 15-20 minutes 3-4 times daily, Compress- wear the beni wrap as discussed as much as possible to help reduce swelling and pain, Elevate the extremity when at rest *nuria tape is for support and help control swelling, use it except in the shower. Be sure that is not to tight but not to loose either *Elevate when resting *Ibuprofen every 6-8 hours as needed for pain an inflammation. If need something more can take Tylenol in between doses of Ibuprofen to help Immediately follow up with your family doctor for new or worsening of symptoms, or no noticeable improvement over the next 3-5 days Referrals: Murtaza Rivera MD [Primary Care Provider] - As needed Forms: Work/School Release Time of Disposition: 17:33 Medical Decision Making - Сергей Inquiry Pt receiving controlled substance: No Сергей was queried for this patient: No Vital Signs: 09/14/21 17:18 Temperature 98.1 F Temperature Source Oral Pulse Rate [Right Brachial] 82 Respiratory Rate 22 Blood Pressure [Right Arm] 120/89 Blood Pressure Mean [Right Arm] 99 Blood Pressure Source [Right Arm] Automatic Cuff Blood Pressure Position [Right Arm] Sitting 02 Sat by Pulse Oximetry 99 Orders (Tests/Meds): ORDERS Category Date Time Status XR foot LT min 3V Stat Exams 09/14/21 16:48 Taken - Radiology Data #1 Image(s): Foot/Toes Image Reviewed: Yes I reviewed the patient's radiology image Preliminary Findings: No Fracture Seen [facility] [place] HPI - General Stated complaint: a/o 09/12 dropped item on left toe Time Seen by Provider: 09/14/21 17:23 Mode of Arrival: Family Vehicle Description of Symptoms (Recalled from Triage Doc. by RN): PT STATES THAT SHE DROPPED A DRESSER ON HER SECOND TOE ON HER LEFT FOOT ON WEDNESDAY AFTERNOON. SLIGHT SWELLING AND BRUISING NOTED. HEENT Symptoms (Recalled from RN notes): No Resp Symptoms (Recalled from RN notes): No Skin Symptoms (Recalled from RN notes): No MS Symptoms (Recalled from RN notes): Yes Functional Status (Recalled from RN notes): WNL - History of Present Illness Provider Complaint: Patient states that she was helping move a dresser on Wednesday when she dropped it and it landed on her left second toe States that she has been having brusing and swelling in toe ever since States that she was at work last night and her nurse told her she needed to get it checked so she came in - Related Data Previous Rx's Medication Instructions Recorded prenat.vits,leah,pra-eoll-fesfw 1 tab PO DAILY #90 tab 07/18/20 Albuterol Sulfate [Albuterol 2 puffs IH Q6HP PRN 30 Days #1 08/01/20 Sulfate Hfa] hfa.aer.ad metformin 500 mg tablet,extended 500 mg PO DAILY #30 tab 01/08/21 release 24 hr cholecalciferol (vitamin D3) 25 25 mcg PO DAILY #30 cap 01/10/21 mcg (1,000 unit) capsule ergocalciferol (vitamin D2) 1,250 1,250 mcg PO WEEKLY #5 cap 01/10/21 mcg (50,000 unit) capsule phenazopyridine 100 mg tablet 100 mg PO TID PRN 3 Days #9 tab 04/25/21 Allergies Allergy/AdvReac Type Severity Reaction Status Date / Time tomato Allergy Unknown UTI Verified 04/25/21 13:45 [From TOMATOES (FOOD/DRUG)] azithromycin Allergy seizure Verified 04/25/21 13:45 activity dexamethasone Allergy abnormal Verified 04/25/21 13:45 breathing pattern and syncope venom-wasp Allergy Verified 04/25/21 13:45 Bumble Bee Allergy Unknown Uncoded 04/25/21 13:45 From TOMATOES (FOOD/DRUG) Allergy Unknown UTI Uncoded 04/25/21 13:45 - Worker's Comp Is
[2021-09-14 17:39] VITALS: BP 120/89; PULSE 82; RESP 22; TEMP 36.7; O2SAT 99
== END 2021-09-14 17:42 | disposition home or self-care (01) ==
PROVIDERS: Emergency Provider Nurse Practitioner; PCP Emergency Medicine
DX: S90.122A Contusion of left lesser toe(s) without damage to nail, initial encounter (principal); W22.8XXA Striking against or struck by other objects, initial encounter; Y92.69 Other specified industrial and construction area as the place of occurrence of the external cause; Y99.0 Civilian activity done for income or pay; J45.909 Unspecified asthma, uncomplicated; F41.8 Other specified anxiety disorders
CPT/HCPCS: 73630; 99202; G0463

== ENCOUNTER → 2022-04-03 07:47 | Outpatient (CLI) | payer SELFPAY ==
[2022-04-02 17:07] LABS: Basophils # 0.1 K/mm3 (0-0.2); Basophils % 0.9 % (0.1-2.0); Eosinophils # 0.2 K/mm3 (0.0-0.4); Eosinophils % 2.7 % (0.1-12.0); Hematocrit 41.8 % (37.0-47.0); Hemoglobin 13.9 g/dL (12.2-16.2); Lymphocytes # 1.9 K/mm3 (0.7-4.5); Lymphocytes % 25.6 % (10-50); Mean Corpuscular HGB Conc 33.2 g/dL (31.8-35.4); Mean Corpuscular Hemoglobin 28.2 pg (27.0-31.2); Mean Corpuscular Volume 85.2 fl (81-99); Mean Platelet Volume 10.3 fl (7.4-10.4); Monocytes # 0.6 K/mm3 (0.1-1.0); Monocytes % 8.8 % (1.7-9.3); Neutrophils # 4.5 K/mm3 (1.8-7.8); Neutrophils % 62.1 % (37.0-80.0); Platelet Count 251 K/mm3 (142-424); Red Blood Count 4.91 M/mm3 (4.20-5.40); Red Cell Distribution Width 14.4 % (11.5-17.5); White Blood Count 7.3 K/mm3 (4.8-10.8)
[2022-04-02 17:12] LABS: Alanine Aminotransferase 16 U/L (12-78); Albumin Level 4.2 g/dl (3.5-5.0); Albumin/Globulin Ratio 1.9 (1.1-1.8); Alkaline Phosphatase 69 U/L (38-126); Anion Gap 10.1 mEq/L (5-15); Aspartate Amino Transferase 27 U/L (14-36); Bilirubin,Total 0.3 mg/dl (0.2-1.3); Blood Urea Nitrogen 15 mg/dl (7-17); Calcium 9.1 mg/dl (8.4-10.2); Carbon Dioxide 28 mmol/L (22.0-30.0); Chloride 103 mmol/L (98-107); Chol/HDL Ratio 2.8 (1-3.5); Cholesterol 128 mg/dl (140-200); Estimated Glomerular Filt Rate 106 ml/min (>60); GFR (African American) 128 ML/MIN (>60); Globulin 2.2 g/dL (1.3-3.2); Glucose 81 mg/dl (74-100); HDL Cholesterol 46 mg/dl (40-60); Potassium 4.1 mmoL/L (3.5-5.1); Sodium 137 mmol/L (136-145); Total Protein,Serum 6.4 g/dl (6.3-8.2); Triglycerides 76 mg/dl (30-150); VLDL Cholesterol 15 mg/dL (0-40)
[2022-04-02 17:17] LABS: Hemoglobin A1C 5.2 % (4.0-6.0)
[2022-04-02 17:29] LABS: Free T4 (Free Thyroxine) 0.97 ng/dl (0.78-2.19)
[2022-04-02 17:30] LABS: 25-OH Vitamin D, Total 22.8 ng/mL (30-100)
[2022-04-02 17:43] LABS: Thyroid Stimulating Hormone 2.73 uIU/mL (0.465-4.68)
[2022-04-02 18:02] LABS: Vitamin B12 827 pg/mL (239-931)
== END ==
PROVIDERS: PCP Physician Assistant; Visit Provider Physician Assistant
DX: R55 Syncope and collapse (principal); R82.90 Unspecified abnormal findings in urine; R53.83 Other fatigue
CPT/HCPCS: 80053; 80061; 82306; 82607; 83036; 84439; 84443; 85025; 87086

== ENCOUNTER 2023-04-14 12:45 | Emergency (ER) | payer OTHER, SELFPAY ==
[2023-04-14] VITALS (9 sets, daily range): BP systolic 124–164; BP diastolic 67–95; PULSE 79–115; RESP 20; TEMP 36.8; O2SAT 97–100; BMI 33.5
--- NOTE | 2023-04-14 | ECG_ITS ---
APPROVED REPORT Exam: Resting ECG HR:105 bpm ECG Measurements Heart Rate 105 AXES MD 132 P 51 QRSd 91 QRS 74 QT 338 T 43 QTc 399 Conclusion SINUS TACHYCARDIA ABNORMAL RHYTHM ECG UNCONFIRMED REPORT Electronically signed by : Miguel Ángel Goncalves MD 04/15/2023 09:49:13
--- NOTE | 2023-04-14 13:09 | HMH.EDGENADL ---
Discharge Plan Disposition Patient Disposition: Home, Self-Care Prescriptions Prescriptions: New promethazine 25 mg tablet 25 mg PO TID PRN (Reason: nausea and vomiting) 5 Days Qty: 20 0RF ondansetron 4 mg tablet,disintegrating 4 mg PO Q6H PRN (Reason: nausea and vomiting) 5 Days Qty: 20 0RF No Action metformin 500 mg tablet extended release 24 hr 500 mg PO DAILY Qty: 30 2RF ciprofloxacin HCl [Cipro] 500 mg tablet 500 mg PO BID 5 Days Qty: 10 0RF buspirone 5 mg tablet 5 mg PO BID Qty: 60 2RF Vraylar 1.5 mg capsule 1.5 mg PO DAILY Qty: 30 2RF propranolol 60 mg capsule,extended release 24 hr 60 mg PO DAILY Qty: 30 2RF ergocalciferol (vitamin D2) 1,250 mcg (50,000 unit) capsule 1,250 mcg PO WEEKLY Qty: 5 2RF cholecalciferol (vitamin D3) 25 mcg (1,000 unit) capsule 25 mcg PO DAILY Qty: 30 2RF albuterol sulfate 8.5 GM HFA aerosol inhaler 2 puffs IH Q6HP PRN (Reason: Shortness Of Breath) 30 Days Qty: 1 5RF Referrals Follow up/Referrals: Provider,Referral, MD [Primary Care Provider] - See instructions Activity Restrictions/Add. Instructions Additional Instructions/Restrictions: Please take Phenergan as needed for your nausea vomiting and if you are still unable to tolerate p.o. use Zofran as an alternate agent. Please return to the emergency department with any worsening symptoms specifically any inability to tolerate anything by mouth. Clinical Impressions Clinical Impression: Nausea and vomiting during , Acute dehydration Discharge ED Provider: Adam Tejeda General Adult HPI General Chief complaint: Dizziness Stated complaint: 8 wks , dizzy, lightheaded, seeing spots Time Seen by Provider: 04/14/23 13:01 Mode of Arrival: Ambulatory Source of Information: Patient Limitations: No Limitations Description of Symptoms (Recalled from ER Triage Doc. by RN): pt to ed c/o dizziness, near syncope and occasional blurry vision. pt reports she is approx 8w . pt reports her symptoms are intermittent over the last week. pt denies v/d. History of Present Illness HPI narrative: Patient is a 22-year-old female at 6 weeks gestational age by LMP presenting today with lightheadedness nausea vomiting and difficulty with p.o. tolerance. Patient denies any abdominal pain vaginal bleeding loss of fluid or contractions. She states that she has only been able to tolerate fruit at home but has had significant change in her diet and she has been . She is able to drink some water but really nothing with electrolytes or glucose. Her only known medical problems in the past have been prediabetes and she has no other medical history. She denies any loss of consciousness or any other neurologic symptoms. No chest pain shortness of breath or any other symptoms. Related Data Previous Rx's Medication Instructions Recorded albuterol sulfate 90 mcg/actuation 2 puffs inhalation Q6HP PRN 08/01/20 aerosol inhaler Shortness Of Breath 30 days ##1 metformin 500 mg tablet,extended 500 mg PO DAILY #30 tabs 01/08/21 release 24 hr cholecalciferol (vitamin D3) 25 25 mcg PO DAILY #30 caps 01/10/21 mcg (1,000 unit) capsule ergocalciferol (vitamin D2) 1,250 1,250 mcg PO WEEKLY #5 caps 01/10/21 mcg (50,000 unit) capsule buspirone 5 mg tablet 5 mg PO BID #60 tabs 04/02/22 cariprazine 1.5 mg capsule 1.5 mg PO DAILY #30 caps 04/02/22 (Vraylar) ciprofloxacin HCl 500 mg tablet 500 mg PO BID 5 days #10 tabs 04/02/22 (Cipro) propranolol 60 mg capsule,24 60 mg PO DAILY #30 caps 04/02/22 hr,extended release ondansetron 4 mg disintegrating 4 mg PO Q6H PRN nausea and 04/14/23 tablet vomiting 5 days #20 tabs promethazine 25 mg tablet 25 mg PO TID PRN nausea and 04/14/23 vomiting 5 days #20 tabs Allergies Allergy/AdvReac Type Severity Reaction Status Date / Time tomato Allergy Unknown UTI Verified 04/02/22 13:10 [From TOMATOES (FOOD/DRUG)] azithromycin Allergy
[2023-04-14 13:14] LABS: Basophils % 0.3 % (0.1-2.0); Eosinophils # 0.2 K/mm3 (0.0-0.4); Eosinophils % 2.2 % (0.1-12.0); Hematocrit 38.9 % (37.0-47.0); Hemoglobin 12.2 g/dL (12.2-16.2); Lymphocytes # 1.3 K/mm3 (0.7-4.5); Lymphocytes % 13.4 % (10-50); Mean Corpuscular HGB Conc 31.4 g/dL (31.8-35.4); Mean Corpuscular Hemoglobin 26.2 pg (27.0-31.2); Mean Corpuscular Volume 83.4 fl (81-99); Mean Platelet Volume 9.5 fl (7.4-10.4); Monocytes # 0.8 K/mm3 (0.1-1.0); Monocytes % 8.2 % (1.7-9.3); Neutrophils # 7.5 K/mm3 (1.8-7.8); Neutrophils % 75.9 % (37.0-80.0); Platelet Count 236 K/mm3 (142-424); Red Blood Count 4.66 M/mm3 (4.20-5.40); Red Cell Distribution Width 13.8 % (11.5-17.5); White Blood Count 9.8 K/mm3 (4.8-10.8)
[2023-04-14 13:19] LABS: Chloride 104 mmol/L (98-107); Potassium 3.9 mmoL/L (3.5-5.1); Sodium 138 mmol/L (136-145)
[2023-04-14 13:21] LABS: Blood Urea Nitrogen 15 mg/dl (7-17); Creatinine Clearance Estimated 225 mL/min (50-200); Estimated Glomerular Filt Rate 125 ml/min (>60); GFR (African American) 151 ML/MIN (>60)
[2023-04-14 13:22] LABS: Alanine Aminotransferase 24 U/L (12-78); Albumin Level 3.9 g/dl (3.5-5.0); Albumin/Globulin Ratio 1.6 (1.1-1.8); Alkaline Phosphatase 57 U/L (38-126); Anion Gap 11.9 mEq/L (5-15); Aspartate Amino Transferase 28 U/L (14-36); Bilirubin,Total < 0.1 mg/dl (0.2-1.3); Calcium 8.7 mg/dl (8.4-10.2); Carbon Dioxide 26 mmol/L (22.0-30.0); Globulin 2.5 g/dL (1.3-3.2); Glucose 104 mg/dl (74-100); Total Protein,Serum 6.4 g/dl (6.3-8.2)
[2023-04-14 13:35] LABS: HCG Qualitative, Serum Positive (Negative)
--- NOTE | 2023-04-14 14:04 | PC.NURSE ---
ROUNDED ON PT NOTHING NEEDED AT THIS TIME, CALL LIGHT AT BS
--- NOTE | 2023-04-14 15:09 | PC.NURSE ---
HOOKED PT BACK UP DATA SCOPE MACHINE NOTHING NEEDED AT THIS TIME ,CALL LIGHT AT BS
== END 2023-04-14 16:42 | disposition home or self-care (01) ==
PROVIDERS: Emergency Provider Student in an Organized Health Care Education/Training Program
DX: O26.891 Other specified pregnancy related conditions, first trimester (principal); O21.0 Mild hyperemesis gravidarum; E86.0 Dehydration; Z3A.01 Less than 8 weeks gestation of pregnancy; R00.0 Tachycardia, unspecified
CPT/HCPCS: 80053; 84703; 85025; 93005; 96374; 99284; J2405

== ENCOUNTER 2023-04-18 14:33 | Emergency (ER) | payer OTHER, SELFPAY ==
[2023-04-18 14:34] VITALS: BP 131/81; PULSE 99; RESP 18; TEMP 36.6; O2SAT 100; BMI 33.3
--- NOTE | 2023-04-18 14:39 | HMH.EDGENADL ---
Discharge Plan Disposition Patient Disposition: Home, Self-Care Condition: Fair Prescriptions Prescriptions: New nitrofurantoin monohyd/m-cryst [Macrobid] 100 mg capsule 100 mg PO BID 7 Days Qty: 14 0RF Rx Instructions: must administer with a meal/food metoclopramide HCl [Reglan] 10 mg tablet 10 mg PO Q6H PRN (Reason: nausea and vomiting) Qty: 20 0RF No Action metformin 500 mg tablet extended release 24 hr 500 mg PO DAILY Qty: 30 2RF ciprofloxacin HCl [Cipro] 500 mg tablet 500 mg PO BID 5 Days Qty: 10 0RF buspirone 5 mg tablet 5 mg PO BID Qty: 60 2RF Vraylar 1.5 mg capsule 1.5 mg PO DAILY Qty: 30 2RF propranolol 60 mg capsule,extended release 24 hr 60 mg PO DAILY Qty: 30 2RF ergocalciferol (vitamin D2) 1,250 mcg (50,000 unit) capsule 1,250 mcg PO WEEKLY Qty: 5 2RF cholecalciferol (vitamin D3) 25 mcg (1,000 unit) capsule 25 mcg PO DAILY Qty: 30 2RF albuterol sulfate 8.5 GM HFA aerosol inhaler 2 puffs IH Q6HP PRN (Reason: Shortness Of Breath) 30 Days Qty: 1 5RF promethazine 25 mg tablet 25 mg PO TID PRN (Reason: nausea and vomiting) 5 Days Qty: 20 0RF ondansetron 4 mg tablet,disintegrating 4 mg PO Q6H PRN (Reason: nausea and vomiting) 5 Days Qty: 20 0RF Referrals Follow up/Referrals: Murtaza Rivera MD [Primary Care Provider] - See instructions Activity Restrictions/Add. Instructions Additional Instructions/Restrictions: Your work-up today showed that you may have a mild urinary tract infection. An antibiotic has been called into the [facility] pharmacy in [place]. Please take the medication as prescribed. I suspect that your dizziness and visual disturbance are secondary to a migraine headache. Please follow-up with your primary care doctor or refurbish technician to discuss what medications would be best for your migraines. Meanwhile, I have prescribed you Reglan which is a nausea medicine but also have this headaches. You can use this medication in combination with [id number] Benadryl and Tylenol. Return immediately to the emergency department if you feel worse in any way. Keep all follow-up appointments as scheduled. Clinical Impressions Clinical Impression: Migraine Qualifiers: Migraine type: with aura Status migrainosus presence: without status migrainosus Intractability: not intractable Qualified Code(s): G43.109 - Migraine with aura, not intractable, without status migrainosus UTI (urinary tract infection) Qualifiers: Urinary tract infection type: acute cystitis Hematuria presence: without hematuria Qualified Code(s): N30.00 - Acute cystitis without hematuria Instructions Patient Instructions: DI for Migraine, DI for Urinary Tract Infection (UTI) Discharge ED Provider: Aundrea Roberts General Adult HPI General Chief complaint: Headache Stated complaint: 7 weeks ,dizziness,blurred vision Time Seen by Provider: 04/18/23 14:39 Mode of Arrival: Family Vehicle Source of Information: Patient History of Present Illness HPI narrative: The patient presents to the emergency department complaining of dizziness and visual disturbances with headache similar to prior migraines. She is 7 weeks . She also complains of some pelvic cramping without any vaginal bleeding. She was seen in this emergency department not too long ago for similar symptoms and had an ultrasound performed which showed an intrauterine . She is not allergic to any medications. Related Data Previous Rx's Medication Instructions Recorded albuterol sulfate 90 mcg/actuation 2 puffs inhalation Q6HP PRN 08/01/20 aerosol inhaler Shortness Of Breath 30 days ##1 metformin 500 mg tablet,extended 500 mg PO DAILY #30 tabs 01/08/21 release 24 hr cholecalciferol (vitamin D3) 25 25 mcg PO DAILY #30 caps 01/10/21 mcg (1,000 unit) capsule ergocalciferol (vitamin D2) 1,250 1,250 mcg PO WEEKLY #5 caps 01/10/21 mcg (50,000 unit) capsule buspirone 5 mg table
[2023-04-18 14:53] LABS: Microscopic, Urine URINE MICROSCOPIC (MICROSCOPIC)
[2023-04-18 14:54] LABS: Appearance,Urine SL CLOUDY (Clear); Bilirubin,Urine Negative (Negative); Blood, Urine Negative (Negative); Color,Urine YELLOW (Yellow); Glucose,Urine (UA) Negative (Negative); Ketones,Urine Negative (Negative); Leukocyte Esterase,Urine 3+ (Negative); Nitrate,Urine Negative (Negative); Protein,Urine Negative (Negative); Urobilinogen,Urine 0.2 EU/dl (0.2)
[2023-04-18 15:00] VITALS: BP 115/72; PULSE 99; O2SAT 99
[2023-04-18 15:26] LABS: Bacteria,Urine Trace /lpf; RBC,Urine Occasional #/hpf (0-3); Yeast,Urine Occasional /lpf
--- NOTE | 2023-04-18 15:39 | PC.NURSE ---
confirmed with [facility] that okay for pt to have medications as ordered per ER MD while
[2023-04-18 15:44] VITALS: BP 103/45; PULSE 86; O2SAT 100
[2023-04-18 16:00] VITALS: BP 104/57; PULSE 89; O2SAT 100
[2023-04-18 16:31] VITALS: BP 91/46; PULSE 72; O2SAT 100
[2023-04-18 17:09] VITALS: BP 91/46; PULSE 72; RESP 16; TEMP 36.6; O2SAT 100
== END 2023-04-18 17:09 | disposition home or self-care (01) ==
PROVIDERS: Emergency Provider Emergency Medicine; PCP Emergency Medicine
DX: O99.351 Diseases of the nervous system complicating pregnancy, first trimester (principal); O23.11 Infections of bladder in pregnancy, first trimester; G43.109 Migraine with aura, not intractable, without status migrainosus; N30.00 Acute cystitis without hematuria; R42 Dizziness and giddiness; Z3A.01 Less than 8 weeks gestation of pregnancy
CPT/HCPCS: 81001; 87086; 96361; 96374; 96375; 99284; J0131

== ENCOUNTER 2023-04-28 00:29 | Emergency (ER) | payer OTHER, SELFPAY ==
[2023-04-28 00:30] VITALS: BP 132/92; PULSE 109; RESP 16; TEMP 36.8; O2SAT 98; BMI 33.5
[2023-04-28 00:43] VITALS: BMI 29.1
--- NOTE | 2023-04-28 00:48 | HMH.EDGENADL ---
Discharge Plan Disposition Patient Disposition: Home, Self-Care Condition: Fair Prescriptions Prescriptions: No Action metformin 500 mg tablet extended release 24 hr 500 mg PO DAILY Qty: 30 2RF ciprofloxacin HCl [Cipro] 500 mg tablet 500 mg PO BID 5 Days Qty: 10 0RF buspirone 5 mg tablet 5 mg PO BID Qty: 60 2RF Vraylar 1.5 mg capsule 1.5 mg PO DAILY Qty: 30 2RF propranolol 60 mg capsule,extended release 24 hr 60 mg PO DAILY Qty: 30 2RF ergocalciferol (vitamin D2) 1,250 mcg (50,000 unit) capsule 1,250 mcg PO WEEKLY Qty: 5 2RF cholecalciferol (vitamin D3) 25 mcg (1,000 unit) capsule 25 mcg PO DAILY Qty: 30 2RF albuterol sulfate 8.5 GM HFA aerosol inhaler 2 puffs IH Q6HP PRN (Reason: Shortness Of Breath) 30 Days Qty: 1 5RF nitrofurantoin monohyd/m-cryst [Macrobid] 100 mg capsule 100 mg PO BID 7 Days Qty: 14 0RF Rx Instructions: must administer with a meal/food metoclopramide HCl [Reglan] 10 mg tablet 10 mg PO Q6H PRN (Reason: nausea and vomiting) Qty: 20 0RF promethazine 25 mg tablet 25 mg PO TID PRN (Reason: nausea and vomiting) 5 Days Qty: 20 0RF ondansetron 4 mg tablet,disintegrating 4 mg PO Q6H PRN (Reason: nausea and vomiting) 5 Days Qty: 20 0RF Referrals Follow up/Referrals: Murtaza Rivera MD [Primary Care Provider] - See instructions Activity Restrictions/Add. Instructions Additional Instructions/Restrictions: Call you RECREATION ASSISTANT later today for a recheck. Your culture results will go to Dr. Rivera. Please call to get the results Clinical Impressions Clinical Impression: , threatened Instructions Patient Instructions: DI for Vaginal Bleeding Print Language Print Language: Bhutanese Discharge ED Provider: Marc Arevalo Adult HPI General Chief complaint: Vaginal Bleeding Stated complaint: 8 weeks ; bleeding and cramping Time Seen by Provider: 04/28/23 00:48 Mode of Arrival: Ambulatory Source of Information: Patient History of Present Illness HPI narrative: Patient presents the emergency department with vaginal bleeding and pelvic cramping. The patient reports vaginal spotting and back pain. The patient reports that she was in the park and had some she developed the back pain and subsequent cramping and spotting. MD complaint: vaginal bleeding Onset (ago): hour(s) (4) Location: back and abdomen Radiation: back Quality: other (crampy) Consistency: constant Relieving factors: none Exacerbating factors: movement Treatments prior to arrival: none Related Data Previous Rx's Medication Instructions Recorded albuterol sulfate 90 mcg/actuation 2 puffs inhalation Q6HP PRN 08/01/20 aerosol inhaler Shortness Of Breath 30 days ##1 metformin 500 mg tablet,extended 500 mg PO DAILY #30 tabs 01/08/21 release 24 hr cholecalciferol (vitamin D3) 25 25 mcg PO DAILY #30 caps 01/10/21 mcg (1,000 unit) capsule ergocalciferol (vitamin D2) 1,250 1,250 mcg PO WEEKLY #5 caps 01/10/21 mcg (50,000 unit) capsule buspirone 5 mg tablet 5 mg PO BID #60 tabs 04/02/22 cariprazine 1.5 mg capsule 1.5 mg PO DAILY #30 caps 04/02/22 (Vraylar) ciprofloxacin HCl 500 mg tablet 500 mg PO BID 5 days #10 tabs 04/02/22 (Cipro) propranolol 60 mg capsule,24 60 mg PO DAILY #30 caps 04/02/22 hr,extended release ondansetron 4 mg disintegrating 4 mg PO Q6H PRN nausea and 04/14/23 tablet vomiting 5 days #20 tabs promethazine 25 mg tablet 25 mg PO TID PRN nausea and 04/14/23 vomiting 5 days #20 tabs metoclopramide HCl 10 mg tablet 10 mg PO Q6H PRN nausea and 04/18/23 (Reglan) vomiting #20 tabs nitrofurantoin 100 mg PO BID 7 days #14 caps 04/18/23 monohydrate/macrocrystals 100 mg capsule (Macrobid) Allergies Allergy/AdvReac Type Severity Reaction Status Date / Time tomato Allergy Unknown UTI Verified 04/02/22 13:10 [From TOMATOES (FOOD/DRUG)] azithromycin Allergy seizure Verified 04/02/22 13:10 activity dexamethaso
--- NOTE | 2023-04-28 00:54 | PC.NURSE ---
in room talking with patient at this time.
--- NOTE | 2023-04-28 00:56 | US_ITS ---
PROCEDURE INFORMATION: Exam: US , Transvaginal Exam date and time: 04/28/2023 1:24 AM Age: 22 years old Clinical indication: complicated by abdominal or pelvic pain; Other: Back pain; Gestational age or lmp: 7 weeks 4 days; TECHNIQUE: Imaging protocol: Real-time transvaginal obstetrical ultrasound of the maternal pelvis and a first trimester with image documentation. Transvaginal imaging was used for better evaluation of the fetus, adnexa, and/or cervix. Real-time duplex ultrasound scan of the arterial or venous flow of the ovaries with B-mode, color Doppler flow and spectral waveform analysis, Limited Duplex. Duplex exam was performed to evaluate for torsion and other vascular conditions. COMPARISON: PTV US PELVIS-TRANSVAGINAL ONLY 12/02/2016 5:04 PM FINDINGS: GESTATION: Gestation: Single live intrauterine gestation. heart rate: heart rate of 174 beats per minute. BIOMETRY: Gestational age (AUA): [place]-rump length of 2.0 cm, correlating with gestational age of 8 weeks 4 days. MATERNAL: Uterus: No significant subchorionic hemorrhage. Cervix: Closed cervix. Right ovary: Probable 1.9 x 1.7 x 1.5 cm corpus luteal cyst. Normal flow. No adnexal mass. Left ovary: No mass. Normal flow. No adnexal mass. Intraperitoneal space: Trace free fluid within pelvis. IMPRESSION: Single live intrauterine gestation.
[2023-04-28 00:59] LABS: Microscopic, Urine URINE MICROSCOPIC (MICROSCOPIC)
--- NOTE | 2023-04-28 00:59 | PC.NURSE ---
Notified [employer] to call in u/s tech
[2023-04-28 01:01] LABS: Appearance,Urine CLOUDY (Clear); Bilirubin,Urine Negative (Negative); Blood, Urine TRACE-I (Negative); Color,Urine YELLOW (Yellow); Glucose,Urine (UA) Negative (Negative); Ketones,Urine Negative (Negative); Leukocyte Esterase,Urine 2+ (Negative); Nitrate,Urine Negative (Negative); Protein,Urine 1+ (Negative); Urobilinogen,Urine 0.2 EU/dl (0.2)
--- NOTE | 2023-04-28 01:02 | PC.NURSE ---
Rounded on patient. blanket was given to patient per request.
[2023-04-28 01:05] LABS: Basophils % 0.3 % (0.1-2.0); Eosinophils # 0.1 K/mm3 (0.0-0.4); Hematocrit 36.6 % (37.0-47.0); Hemoglobin 11.7 g/dL (12.2-16.2); Lymphocytes # 2.2 K/mm3 (0.7-4.5); Lymphocytes % 21.5 % (10-50); Mean Corpuscular Volume 81.3 fl (81-99); Monocytes # 0.7 K/mm3 (0.1-1.0); Monocytes % 6.9 % (1.7-9.3); Neutrophils # 7.3 K/mm3 (1.8-7.8); Neutrophils % 70.3 % (37.0-80.0); Platelet Count 245 K/mm3 (142-424); White Blood Count 10.4 K/mm3 (4.8-10.8)
[2023-04-28 01:08] LABS: Urine Pregnancy, HCG Qual. Positive (Negative)
--- NOTE | 2023-04-28 01:30 | PC.NURSE ---
Transported to ultrasound via wheelchair.
[2023-04-28 01:40] LABS: Bacteria,Urine 1+ /lpf; RBC,Urine Occasional #/hpf (0-3)
[2023-04-28 01:52] LABS: HCG,Quantitative 78351 mIU/ml (0-5.42)
--- NOTE | 2023-04-28 01:58 | PC.NURSE ---
patient return to room 11 via wheelchair from ultrasound.
== END 2023-04-28 02:34 | disposition home or self-care (01) ==
PROVIDERS: Emergency Provider Emergency Medicine; PCP Emergency Medicine
DX: O20.0 Threatened abortion (principal); O26.891 Other specified pregnancy related conditions, first trimester; O99.331 Smoking (tobacco) complicating pregnancy, first trimester; R10.2 Pelvic and perineal pain; F17.210 Nicotine dependence, cigarettes, uncomplicated; Z3A.08 8 weeks gestation of pregnancy
CPT/HCPCS: 76817; 81001; 81025; 84702; 85025; 86900; 86901; 87086; 96374; 99284; 99285; J0131

== ENCOUNTER 2023-06-03 13:00 | Outpatient (RCR) | payer OTHER, SELFPAY ==
--- NOTE | 2023-05-19 16:56 | HMH.PTOPEV ---
PT Outpatient Evaluation Rehab PT Outpatient Evaluation Start: 05/19/23 15:12 Freq: Status: Active Protocol: Document 05/19/23 15:12 DIONNE (Rec: 05/19/23 16:56 DIONNE [id number]) E-signed By Clementina Ryan, PT Outpatient Therapy Subjective History Subjective History Pt is a 22 y/o female who reports onset of left-sided low back pain with radicular symptoms 3-4 weeks ago. Pt reports she is almost 12 weeks currently and has a 6 y/o with CP. Pt reports her entire left leg has a burning sensation and will eventually go numb all the way to her toes. Pt reports intermittent tingling of the right leg as well when pain gets bad. Pt reports she has fallen 6 times within the last couples weeks due to left leg weakness and numbness. Pt denies changes in bowel/bladder function outside of normal changes. Pt reports she does not have pain in the first 30 mins when she wakes up but when she starts moving she immediately has low back pain. Pt reports pain sometimes refers up the left side of her middle back as well. Occupation: [employer] Ald[employer] at [employer], light- duty at work Medical History: pre-diabetes Chief Complaint Pain,Paresthesia Symptom Type Stabbing,Burning Symptoms Relieved By Rest/Positioning Symptoms Aggravated By Standing,Bending/Stooping, Physical Activity,Twisting, Walking,Lifting,Sneeze/ Coughing Prior Functional Limitations None Current Functional Limitations Sleeping,Standing,Walking Symptom Description Intermittent Level of pain today (0-10) 4 Pain scale - at its best (0-10) 0 Pain scale - at its worst (0-10) 10 Lumbopelvic Eval Palapation tenderness bilateral lumbar spinal tenderness Yes paraspinal tenderness Yes buttock tenderness Yes Lumbar/Sacral Palpation Findings Tenderne
== END 2023-06-03 14:15 | disposition home or self-care (01) ==
LOC: PT 13:00
PROVIDERS: Visit Provider Nurse Practitioner Family
DX: M54.50 Low back pain, unspecified (principal); M54.32 Sciatica, left side
CPT/HCPCS: 97010; 97110; 97163

== ENCOUNTER → 2023-06-04 14:38 | Outpatient (CLI) | payer OTHER, SELFPAY ==
[2023-06-04 13:31] LABS: Adenovirus,PCR Not Detected (NotDetected); Bordetella Pertussis Not Detected (NotDetected); Chlamydophila Pneumoniae, PCR Not Detected (NotDetected); Coronavirus 229E Not Detected (NotDetected); Coronavirus NL63 Not Detected (NotDetected); Coronavirus OC43 Not Detected (NotDetected); Coronovirus HKU1,PCR Not Detected (NotDetected); Human Metapneumovirus Not Detected (NotDetected); Influenza A, PCR Not Detected (NotDetected); Influenza AH1, 2009 Not Detected (NotDetected); Influenza AH1, PCR Not Detected (NotDetected); Influenza AH3,PCR Not Detected (NotDetected); Influenza B, PCR Not Detected (NotDetected); Mycoplasma Pneumoniae, PCR Not Detected (NotDetected); Parainfluenza 1, PCR Not Detected (NotDetected); Parainfluenza 2, PCR Not Detected (NotDetected); Parainfluenza 3, PCR Not Detected (NotDetected); Parainfluenza 4, PCR Not Detected (NotDetected); Respiratory Syncytial Virus Not Detected (NotDetected); Rhinovirus/Enterovirus Not Detected (NotDetected)
[2023-06-04 20:25] LABS: Coronavirus 19, PCR Detected (NotDetected)
== END ==
LOC: LAB.DROPOF 14:39
PROVIDERS: PCP Nurse Practitioner Family; Visit Provider Nurse Practitioner Family
DX: J02.9 Acute pharyngitis, unspecified (principal); R50.9 Fever, unspecified; U07.1 COVID-19
CPT/HCPCS: 87581; 87632; 87798

== ENCOUNTER 2023-09-01 16:05 | Emergency (ER) | payer OTHER, SELFPAY ==
[2023-09-01] VITALS (13 sets, daily range): BP systolic 109–135; BP diastolic 66–79; PULSE 105–120; RESP 15–28; TEMP 36.8; O2SAT 96–98; BMI 39.4
--- NOTE | 2023-09-01 16:03 | ECG_ITS ---
APPROVED REPORT Exam: Resting ECG HR:113 bpm ECG Measurements Heart Rate 113 AXES MI 123 P 51 QRSd 105 QRS 95 QT 324 T 11 QTc 391 Conclusion SINUS TACHYCARDIA BORDERLINE RIGHT AXIS DEVIATION [QRS AXIS > 90] ABNORMAL RHYTHM ECG UNCONFIRMED REPORT Electronically signed by : Miguel Ángel Goncalves MD 09/02/2023 20:59:52
--- NOTE | 2023-09-01 16:22 | HMH.EDGENADL ---
Discharge Plan Disposition Patient Disposition: Home, Self-Care Prescriptions Prescriptions: No Action cefdinir 300 mg capsule 300 mg PO BID 10 Days Qty: 20 0RF ondansetron HCl 4 mg tablet 4 mg PO Q8H Qty: 30 0RF albuterol sulfate 90 mcg/actuation HFA aerosol inhaler 2 inh IH Q6HP PRN (Reason: Shortness Of Breath) 30 Days Qty: 8.5 5RF metoclopramide HCl [Reglan] 10 mg tablet 10 mg PO Q6H PRN (Reason: nausea and vomiting) Qty: 20 0RF promethazine 25 mg tablet 25 mg PO TID PRN (Reason: nausea and vomiting) 5 Days Qty: 20 0RF ondansetron 4 mg tablet,disintegrating 4 mg PO Q6H PRN (Reason: nausea and vomiting) 5 Days Qty: 20 0RF Referrals Follow up/Referrals: Dontae Mann APRN [Primary Care Provider] - See instructions James Schneider MD [Staff Physician] - See instructions Activity Restrictions/Add. Instructions Additional Instructions/Restrictions: Please wear Holter monitor for the next 48 hours and follow-up with Dr. Schneider, cardiology, for reevaluation. Please follow-up with your primary care provider. Please return to the emergency department if you develop any new or worsening symptoms or become concerned for your health. Clinical Impressions Clinical Impression: Tachycardia, Heart palpitations Discharge ED Provider: Jean Carlos Langford General Adult HPI General Chief complaint: Chest Pain Stated complaint: CP Time Seen by Provider: 09/01/23 16:08 Mode of Arrival: Ambulatory Source of Information: Patient Limitations: No Limitations Description of Symptoms (Recalled from ER Triage Doc. by RN): pt to ed c/o mid sternal chest pain that radiates through her back. pt reports being 37w . pt states she has been seeing OB for tachycardia. History of Present Illness HPI narrative: 22-year-old female, 37 weeks , history of chronic tachycardia presents with palpitations and chest pain. Happened shortly prior to arrival. She is followed in [place] for OB. She previously had a Holter monitor and was supposed to follow-up with cardiology but has been unable to to this point. She reports no significant shortness of breath. Chest pain is substernal in nature. Reports that she is primarily concerned about the palpitations. She specifically denies any abdominal pain, vaginal bleeding or discharge, urinary symptoms. No history of cardiac pathology besides tachycardia. Related Data Previous Rx's Medication Instructions Recorded ondansetron 4 mg disintegrating 4 mg PO Q6H PRN nausea and 04/14/23 tablet vomiting 5 days #20 tabs promethazine 25 mg tablet 25 mg PO TID PRN nausea and 04/14/23 vomiting 5 days #20 tabs metoclopramide HCl 10 mg tablet 10 mg PO Q6H PRN nausea and 04/18/23 (Reglan) vomiting #20 tabs albuterol sulfate 90 mcg/actuation 2 inh inhalation Q6HP PRN 05/07/23 aerosol inhaler Shortness Of Breath 30 days #8.5 grams cefdinir 300 mg capsule 300 mg PO BID 10 days #20 caps 06/04/23 ondansetron HCl 4 mg tablet 4 mg PO Q8H #30 tabs 06/04/23 Allergies Allergy/AdvReac Type Severity Reaction Status Date / Time tomato Allergy Unknown UTI Verified 06/04/23 09:49 [From TOMATOES (FOOD/DRUG)] azithromycin Allergy seizure Verified 06/04/23 09:49 activity dexamethasone Allergy abnormal Verified 06/04/23 09:49 breathing pattern and syncope venom-wasp Allergy Verified 06/04/23 09:49 Bumble Bee Allergy Unknown Uncoded 06/04/23 09:49 From TOMATOES (FOOD/DRUG) Allergy Unknown UTI Uncoded 06/04/23 09:49 PFSH PFS Disclaimer: The information contained in this section may have been updated after the patient was seen, as this information can be updated by other users. Medical History Anxiety Irregular menses Social History Smoking Status: Never smoker alcohol intake: never substance use type: denies use current occupational sta
[2023-09-01 16:35] LABS: Basophils % 0.3 % (0.1-2.0); Eosinophils # 0.2 K/mm3 (0.0-0.4); Eosinophils % 2.4 % (0.1-12.0); Hematocrit 30.6 % (37.0-47.0); Hemoglobin 10.7 g/dL (12.2-16.2); Lymphocytes % 19.6 % (10-50); Mean Corpuscular Hemoglobin 28.2 pg (27.0-31.2); Mean Corpuscular Volume 80.7 fl (81-99); Mean Platelet Volume 9.2 fl (7.4-10.4); Monocytes # 0.6 K/mm3 (0.1-1.0); Monocytes % 6.1 % (1.7-9.3); Neutrophils # 7.2 K/mm3 (1.8-7.8); Neutrophils % 71.6 % (37.0-80.0); Platelet Count 252 K/mm3 (142-424); Red Blood Count 3.79 M/mm3 (4.20-5.40); Red Cell Distribution Width 14.5 % (11.5-17.5); White Blood Count 10.1 K/mm3 (4.8-10.8)
[2023-09-01 16:36] LABS: Chloride 106 mmol/L (98-107); Sodium 135 mmol/L (136-145)
[2023-09-01 16:37] LABS: Potassium 3.8 mmoL/L (3.5-5.1)
[2023-09-01 16:39] LABS: Alanine Aminotransferase 19 U/L (12-78); Albumin Level 3.8 g/dl (3.5-5.0); Alkaline Phosphatase 95 U/L (38-126); Aspartate Amino Transferase 27 U/L (14-36); Blood Urea Nitrogen 15 mg/dl (7-17); Creatinine Clearance Estimated 300 mL/min (50-200); Estimated Glomerular Filt Rate 154 ml/min (>60); GFR (African American) 187 ML/MIN (>60)
[2023-09-01 16:40] LABS: Albumin/Globulin Ratio 1.3 (1.1-1.8); Anion Gap 7.8 mEq/L (5-15); Bilirubin,Total < 0.1 mg/dl (0.2-1.3); Calcium 8.8 mg/dl (8.4-10.2); Carbon Dioxide 25 mmol/L (22.0-30.0); Glucose 113 mg/dl (74-100); Total Protein,Serum 6.8 g/dl (6.3-8.2)
[2023-09-01 16:54] LABS: D-Dimer 0.85 ug/mL (0.0-0.5)
[2023-09-01 16:57] LABS: Troponin I < 0.01 ng/ml (0.00-0.034)
--- NOTE | 2023-09-01 19:21 | PC.NURSE ---
2nd trop sent at this time and called resp for holter monitor
[2023-09-01 19:53] LABS: Troponin I < 0.01 ng/ml (0.00-0.034)
== END 2023-09-01 20:20 | disposition home or self-care (01) ==
PROVIDERS: Emergency Provider Emergency Medicine; PCP Nurse Practitioner Family
DX: R00.0 Tachycardia, unspecified (principal); R00.2 Palpitations; R07.9 Chest pain, unspecified
CPT/HCPCS: 80053; 84484; 85025; 85378; 93005; 93225; 99285

== ENCOUNTER 2023-09-03 07:49 | Emergency (ER) | payer OTHER, SELFPAY ==
--- NOTE | 2023-09-03 07:45 | ECG_ITS ---
APPROVED REPORT Exam: Resting ECG HR:115 bpm ECG Measurements Heart Rate 115 AXES CO 133 P 36 QRSd 102 QRS 46 QT 319 T 22 QTc 387 Conclusion SINUS TACHYCARDIA POSSIBLE RIGHT VENTRICULAR CONDUCTION DELAY [RSR (QR) IN V1/V2] ABNORMAL RHYTHM ECG UNCONFIRMED REPORT Electronically signed by : Miguel Ángel Goncalves MD 09/03/2023 16:07:23
[2023-09-03 07:50] VITALS: BP 136/80; PULSE 113; RESP 28; TEMP 36.9; O2SAT 97; BMI 20.7
--- NOTE | 2023-09-03 07:55 | PC.NURSE ---
s/w Nevaeh in Respiratory to collect holter monitor and prepare viewing for Dr. Tejeda.
--- NOTE | 2023-09-03 08:00 | PC.NURSE ---
Dr. Tejeda at beside
[2023-09-03 08:30] VITALS: BP 132/78; PULSE 88; RESP 22; O2SAT 97
--- NOTE | 2023-09-03 08:30 | HMH.EDGENADL ---
Discharge Plan Disposition Patient Disposition: Home, Self-Care Prescriptions Prescriptions: No Action cefdinir 300 mg capsule 300 mg PO BID 10 Days Qty: 20 0RF ondansetron HCl 4 mg tablet 4 mg PO Q8H Qty: 30 0RF albuterol sulfate 90 mcg/actuation HFA aerosol inhaler 2 inh IH Q6HP PRN (Reason: Shortness Of Breath) 30 Days Qty: 8.5 5RF metoclopramide HCl [Reglan] 10 mg tablet 10 mg PO Q6H PRN (Reason: nausea and vomiting) Qty: 20 0RF promethazine 25 mg tablet 25 mg PO TID PRN (Reason: nausea and vomiting) 5 Days Qty: 20 0RF ondansetron 4 mg tablet,disintegrating 4 mg PO Q6H PRN (Reason: nausea and vomiting) 5 Days Qty: 20 0RF Referrals Follow up/Referrals: Provider,Referral, MD [Referring] - See instructions Activity Restrictions/Add. Instructions Additional Instructions/Restrictions: You have an appointment with our cardiology clinic to see Tomasa at 9:30 AM next Wednesday. Your Holter monitor demonstrated sinus tachycardia no other emergent medical condition was identified please return with any worsening symptoms or other concerns. Clinical Impressions Clinical Impression: Inappropriate sinus tachycardia, Heart palpitations Discharge ED Provider: Adam Tejeda General Adult HPI General Chief complaint: Chest Pain Stated complaint: chest pain Time Seen by Provider: 09/03/23 08:06 Mode of Arrival: Wheelchair Source of Information: Patient Limitations: No Limitations Description of Symptoms (Recalled from ER Triage Doc. by RN): Patient reports being 27 weeks and that since she was 5 weeks she has had periods of tachycardia. States that she was at work and she began to feel like her heart was racing and she began to have mid sternal chest pain. Does states that when her heart rate when up that she did have some cramping. History of Present Illness HPI narrative: Patient is a at 27 weeks gestational age presents today with tachycardia. States that she has been having intermittent sinus tachycardia since the beginning of this . This is her third ED visit for this. First time she went to [facility] where she had a Holter monitor that was placed and she had a CT scan of her chest which did not demonstrate a pulmonary embolism. She states that most the time she is not having symptoms but when she has these episodes of tachycardia that she feels a little bit of chest discomfort and shortness of breath. She is currently completely without any symptoms and feels back to normal. She was in our emergency department 2 days ago which did not yield any significant diagnosis as well. She was wearing a Holter monitor and has follow-up appoint with Dr. dorsey. She denies any chest pain shortness of breath or any other symptoms at the moment other than the palpitations prior to arrival. She denies any abdominal pain loss of fluid abdominal contractions or any bleeding. Related Data Previous Rx's Medication Instructions Recorded ondansetron 4 mg disintegrating 4 mg PO Q6H PRN nausea and 04/14/23 tablet vomiting 5 days #20 tabs promethazine 25 mg tablet 25 mg PO TID PRN nausea and 04/14/23 vomiting 5 days #20 tabs metoclopramide HCl 10 mg tablet 10 mg PO Q6H PRN nausea and 04/18/23 (Reglan) vomiting #20 tabs albuterol sulfate 90 mcg/actuation 2 inh inhalation Q6HP PRN 05/07/23 aerosol inhaler Shortness Of Breath 30 days #8.5 grams cefdinir 300 mg capsule 300 mg PO BID 10 days #20 caps 06/04/23 ondansetron HCl 4 mg tablet 4 mg PO Q8H #30 tabs 06/04/23 Allergies Allergy/AdvReac Type Severity Reaction Status Date / Time tomato Allergy Unknown UTI Verified 06/04/23 09:49 [From TOMATOES (FOOD/DRUG)] azithromycin Allergy seizure Verified 06/04/23 09:49 activity dexamethasone Allergy abnormal Verified 06/04/23 09:49 breathing pattern and syncope venom-wasp Allergy Verified 06/04/23 09:49 Bumble Bee Allergy Unknown Uncoded 06/04
--- NOTE | 2023-09-03 08:32 | PC.NURSE ---
Appointment scheduled with Tomasa for Wednesday at 930am.
[2023-09-03 08:42] LABS: Basophils % 0.2 % (0.1-2.0); Eosinophils # 0.3 K/mm3 (0.0-0.4); Eosinophils % 2.6 % (0.1-12.0); Hemoglobin 11.6 g/dL (12.2-16.2); Lymphocytes # 1.9 K/mm3 (0.7-4.5); Lymphocytes % 14.7 % (10-50); Mean Corpuscular HGB Conc 35.1 g/dL (31.8-35.4); Mean Corpuscular Volume 82.7 fl (81-99); Monocytes # 0.6 K/mm3 (0.1-1.0); Monocytes % 4.7 % (1.7-9.3); Neutrophils % 77.7 % (37.0-80.0); Platelet Count 247 K/mm3 (142-424); Red Blood Count 3.99 M/mm3 (4.20-5.40); Red Cell Distribution Width 14.9 % (11.5-17.5); White Blood Count 12.8 K/mm3 (4.8-10.8)
[2023-09-03 08:55] LABS: Alanine Aminotransferase 19 U/L (12-78); Albumin Level 3.8 g/dl (3.5-5.0); Albumin/Globulin Ratio 1.2 (1.1-1.8); Alkaline Phosphatase 134 U/L (38-126); Anion Gap 10.8 mEq/L (5-15); Aspartate Amino Transferase 29 U/L (14-36); Bilirubin,Total 0.3 mg/dl (0.2-1.3); Blood Urea Nitrogen 12 mg/dl (7-17); Calcium 9.3 mg/dl (8.4-10.2); Carbon Dioxide 22 mmol/L (22.0-30.0); Chloride 103 mmol/L (98-107); Creatinine Clearance Estimated 167 mL/min (50-200); Estimated Glomerular Filt Rate 154 ml/min (>60); GFR (African American) 187 ML/MIN (>60); Globulin 3.2 g/dL (1.3-3.2); Glucose 132 mg/dl (74-100); Potassium 3.8 mmoL/L (3.5-5.1); Sodium 132 mmol/L (136-145)
[2023-09-03 09:00] VITALS: BP 126/78; PULSE 86; RESP 18; O2SAT 96
[2023-09-03 09:08] LABS: Troponin I < 0.01 ng/ml (0.00-0.034)
[2023-09-03 09:26] LABS: Thyroid Stimulating Hormone 3.71 uIU/mL (0.465-4.68)
[2023-09-03 09:30] VITALS: BP 122/75; PULSE 86
[2023-09-03 09:51] VITALS: BP 122/75; PULSE 94; RESP 16; TEMP 36.7; O2SAT 97
== END 2023-09-03 09:52 | disposition home or self-care (01) ==
PROVIDERS: Emergency Provider Student in an Organized Health Care Education/Training Program; PCP Nurse Practitioner Family
DX: O26.893 Other specified pregnancy related conditions, third trimester (principal); R00.0 Tachycardia, unspecified; R00.2 Palpitations; E87.1 Hypo-osmolality and hyponatremia; Z3A.27 27 weeks gestation of pregnancy
CPT/HCPCS: 80053; 84443; 84484; 85025; 93005; 99284

== ENCOUNTER → 2023-09-06 11:21 | Outpatient (CLI) | payer OTHER, SELFPAY | PROVIDERS: PCP Nurse Practitioner Family; Visit Provider Nurse Practitioner | DX: I47.11 Inappropriate sinus tachycardia, so stated (principal); R00.2 Palpitations; R06.00 Dyspnea, unspecified; R07.9 Chest pain, unspecified; R55 Syncope and collapse | CPT/HCPCS: 93270 ==

== ENCOUNTER → 2023-09-16 15:05 | Outpatient (CLI) | payer OTHER, SELFPAY ==
--- NOTE | 2023-09-16 15:05 | CA_ITS ---
APPROVED REPORT EXAM: Comprehensive 2D, Doppler, and color-flow Echocardiogram Application Packager: OTIS Renner, RVS Ht: 5 ft 7 in Wt: 238lbs BSA: 2.18 BP: 122/62 mmHg Indications: 27 weeks , -2, Tachycardia, Syncope 2D Dimensions Left Atrium 3.05 cm LA Volume 39.10 mL LA Volume Index 17.50 mL/m2 (M/F) 16-34 M-Mode Dimensions RVDd 1.88 cm (0.9-2.6) LA Diam 3.21 cm (1.9-4.0) LVDd 4.23 cm (3.5-5.7) LVDs 2.38 cm (3.5-5.7) IVSd 1.01 cm (0.6-1.1) PWd 1.04 cm (0.6-1.1) EF (Teich) 75.30% EPSs 0.76 cm FS 43.70% EDV (Teich) 79.90 mL TAPSE 2.42 (<1.7) ESV (Teich) 19.70 mL LV Diastology E Decel Time 140 (160-240 msec) E/A Ratio 1.16 MED A' 6.80 cm/s LAT A' 4.90 cm/s Aortic Valve SWAPNIL Index 1.15 cm2/m2 AoV Peak Alek. 141.0 (50-130 cm/s) AO Peak GR. 8.00 mmHg AO Mean GR. 3.90 (<5 mmHg) AO VTI 27.6 (18-25 cm) SWANPIL (VTI) 2.57 (2.5-4.5 cm2) Mitral Valve MV A Velocity 65.0 (40-130 cm/s) E/A Ratio 1.16 Pulmonary Valve NM End VMAX 130.0 cm/s Tricuspid Valve TR P. Velocity 172.00 cm/s RAP Estimate 10.00 mmHg RVSP 21.90 mmHg Left Ventricle The left ventricle is normal size. The left ventricular systolic function is normal. The left ventricular ejection fraction is within the normal range. There is increased LV wall thickness. There is normal LV segmental wall motion. The left ventricular diastolic function is normal. LVEF is 55%. Right Ventricle The right ventricle is normal size. The right ventricular systolic function is normal. Atria The left atrium size is normal. The right atrium size is normal. There is no Doppler evidence of interatrial shunt. Aortic Valve The aortic valve opens well. There is no aortic valvular stenosis. No aortic regurgitation is present. Mitral Valve The mitral valve is normal in structure. No evidence of mitral valve stenosis. There is no mitral valve regurgitation noted. Tricuspid Valve The tricuspid valve leaflets are thin and pliable. Trace tricuspid regurgitation. RVSP is 10 mmHg + RA pressure. Pulmonic Valve The pulmonary valve is normal in structure. Trace pulmonic regurgitation. Great Vessels The aortic root is normal in size. The ascending aorta is normal in size. The IVC is not well-visualized. Pericardium There is no pericardial effusion. Other Information Study Quality: Fair Conclusion Normal biventricular systolic function. No significant valvular stenosis or regurgitation. Electronically signed by : Skye Delgado MD 09/21/2023 14:49:07
== END ==
PROVIDERS: PCP Nurse Practitioner Family; Visit Provider Nurse Practitioner
DX: R06.00 Dyspnea, unspecified (principal); I47.11 Inappropriate sinus tachycardia, so stated; R00.2 Palpitations; R55 Syncope and collapse
CPT/HCPCS: 93306

== ENCOUNTER 2023-10-21 14:47 | Outpatient (CLI) | payer OTHER, SELFPAY ==
[2023-10-21 15:01] VITALS: BMI 38.5
[2023-10-21 15:06] LABS: Microscopic, Urine URINE MICROSCOPIC (MICROSCOPIC)
[2023-10-21 15:08] LABS: Appearance,Urine CLEAR (Clear); Bilirubin,Urine Negative (Negative); Blood, Urine Negative (Negative); Color,Urine YELLOW (Yellow); Glucose,Urine (UA) Negative (Negative); Ketones,Urine Negative (Negative); Leukocyte Esterase,Urine Negative (Negative); Nitrate,Urine Negative (Negative); PH,Urine 7.5 (5.0-8.5); Protein,Urine Negative (Negative); Urobilinogen,Urine 0.2 EU/dl (0.2)
[2023-10-21 15:20] VITALS: BP 114/75; PULSE 98; RESP 19; TEMP 36.6; O2SAT 97; BMI 38.5
[2023-10-21 15:26] LABS: Amphetamine/Metha Screen,Urine Negative ng/ml (<1000); Barbiturates Screen,Urine Negative ng/ml (<200); Benzodiazepines Screen,Urine Negative ng/ml (<200); Cannabinoid Screen,Urine Negative ng/ml (<50); Cocaine Screen,Urine Negative ng/ml (<300); Methadone Screen,Urine Negative ng/ml (<300); Opiate Screen,Urine Negative ng/ml (<300); Phencyclidine Screen,Urine Negative ng/ml (<25)
--- NOTE | 2023-10-21 15:39 | US_ITS ---
PROCEDURE: US OB BIOPHYSICAL PROFILE CLINICAL INDICATION: fall COMPARISON: FINDINGS: Transabdominal sonographic images of the uterus were obtained. From her established due date she is 33weeks 6days. The following parameters are obtained: Viable fetus in the cephalic presentation with an anterior placenta grade 1 -2. Cervix measures 3.3 cm. heart rate: 133bpm Amniotic fluid index: 12.45cm, MVP 4.89 cm. Qualitative AFV: 2 breathing movements: 2 Gross body movements: 2 Tone: 2 Biophysical profile score: 8 No obvious anomalies evident.Kidneys, profile, bladder, four-chamber heart, three-vessel cord appear normal. IMPRESSION: 1. Viable fetus in the cephalic presentation with an anterior placenta grade 1. 2. The fluid is thin normal limits with an amniotic fluid index of 12.45 cm, MVP 4.89 cm. 3. Biophysical profile 8/8 with good breathing movement seen and good movement. Dictated by: Bhavesh Rowley MD 10/23/2023 13:54 Bhavesh Rowley MD in [place] 10/23/2023 13:54
[2023-10-21 16:23] LABS: WBC,Urine Occasional #/hpf (0-3)
[2023-10-21 16:24] LABS: Mucus,Urine 1+ /lpf
[2023-10-21 17:17] LABS: Basophils % 0.2 % (0.1-2.0); Eosinophils # 0.1 K/mm3 (0.0-0.4); Eosinophils % 0.6 % (0.1-12.0); Hemoglobin 11.5 g/dL (12.2-16.2); Lymphocytes # 1.7 K/mm3 (0.7-4.5); Lymphocytes % 17.2 % (10-50); Mean Corpuscular HGB Conc 33.9 g/dL (31.8-35.4); Mean Corpuscular Hemoglobin 27.3 pg (27.0-31.2); Mean Corpuscular Volume 80.4 fl (81-99); Mean Platelet Volume 9.3 fl (7.4-10.4); Monocytes # 0.7 K/mm3 (0.1-1.0); Monocytes % 7.6 % (1.7-9.3); Neutrophils # 7.2 K/mm3 (1.8-7.8); Neutrophils % 74.3 % (37.0-80.0); Platelet Count 242 K/mm3 (142-424); Red Blood Count 4.22 M/mm3 (4.20-5.40); Red Cell Distribution Width 15.1 % (11.5-17.5); White Blood Count 9.7 K/mm3 (4.8-10.8)
== END 2023-10-21 18:04 | disposition home or self-care (01) ==
LOC: OBOUT 14:49 → OB 14:52
PROVIDERS: PCP Nurse Practitioner Family; Visit Provider Obstetrics & Gynecology
DX: O26.893 Other specified pregnancy related conditions, third trimester (principal); Z3A.33 33 weeks gestation of pregnancy; W19.XXXA Unspecified fall, initial encounter
CPT/HCPCS: 59025; 76819; 80307; 81001; 85025; 86850; G0463

== ENCOUNTER 2023-11-09 16:58 | Outpatient (CLI) | payer OTHER, SELFPAY | END 2023-11-09 23:59 | LOC: LAB.DROPOF 16:58 | PROVIDERS: PCP Nurse Practitioner; Visit Provider Nurse Practitioner | DX: M79.672 Pain in left foot (principal); B07.0 Plantar wart; B95.7 Other staphylococcus as the cause of diseases classified elsewhere | CPT/HCPCS: 87070; 87205 ==

== ENCOUNTER 2024-03-21 15:41 | Outpatient (CLI) | payer OTHER, SELFPAY | END 2024-03-21 23:59 | disposition home or self-care (01) | LOC: RT 15:42 | PROVIDERS: PCP Physician Assistant; Visit Provider Physician Assistant | DX: R00.0 Tachycardia, unspecified (principal) | CPT/HCPCS: 93225; 93227 ==

== ENCOUNTER 2024-09-27 21:07 | Emergency (ER) | payer OTHER, SELFPAY ==
[2024-09-27 21:08] VITALS: BP 108/78; PULSE 83; RESP 18; TEMP 36.8; O2SAT 98; BMI 32.8
--- NOTE | 2024-09-27 21:51 | HMH.EDGENADL ---
Discharge Plan Disposition Patient Disposition: Home, Self-Care Condition: Good Prescriptions Prescriptions: New amoxicillin 500 mg capsule 500 mg PO BID 10 Days Qty: 20 0RF No Action albuterol sulfate 90 mcg/actuation HFA aerosol inhaler 2 inh IH Q6HP PRN (Reason: Shortness Of Breath) 30 Days Qty: 8.5 5RF (DME) blood pressure monitor Kit See Rx Instructions .ROUTE .MEDSUPPLY Qty: 1 0RF Rx Instructions: As directed Referrals Follow up/Referrals: Provider,Referral, MD [Referring] - See instructions Activity Restrictions/Add. Instructions Additional Instructions/Restrictions: Please return with any new or worsening symptoms. Please take the antibiotics as directed. Clinical Impressions Clinical Impression: Otitis media Print Language Print Language: Mexican Discharge ED Provider: Mendel Morgan General Adult HPI General Chief complaint: Upper Respiratory Infection Stated complaint: ear pain st fever 101 Time Seen by Provider: 09/27/24 21:51 History of Present Illness HPI narrative: Patient presents for evaluation of sore throat, bilateral earache gradual in onset constant stable no previous therapies no recent antibiotics symptoms are moderate in severity no abdominal pain fevers chills nausea or vomiting. No recent travel. Patient has had sick contacts. Please note that above description of symptoms, in this electronic medical record under categorization of recalled from ER triage doctor by RN are reflective of an initial nursing assessment, however, is not reflective of my full history and physical exam that was personally taken and clarified. Consequentially, this preceding description of symptoms, which may include the patient's categorized chief complaint in the EMR, do not reflect my personal clinical impression, and the ultimate description of history of present illness and patient stated complaints should be deferred to this section of the note. Unless stated otherwise or congruent with this section of the note, additional signs, symptoms, or incongruence should be interpreted as inaccurate with my clinical impression. Related Data Previous Rx's ?Medication ?Instructions ?Recorded albuterol sulfate 90 mcg/actuation 2 inh inhalation Q6HP PRN 05/07/23 aerosol inhaler Shortness Of Breath 30 days #8.5 grams blood pressure monitor #1 ea 12/21/23 amoxicillin 500 mg capsule 500 mg PO BID 10 days #20 caps 09/27/24 Allergies Allergy/AdvReac Type Severity Reaction Status Date / Time tomato (From TOMATOES Allergy Unknown UTI Verified 03/21/24 10:11 (FOOD/DRUG)) azithromycin Allergy seizure Verified 03/21/24 10:11 activity dexamethasone Allergy abnormal Verified 03/21/24 10:11 breathing pattern and syncope venom-wasp Allergy Verified 03/21/24 10:11 Bumble Bee Allergy Unknown Uncoded 01/04/24 09:16 From TOMATOES (FOOD/DRUG) Allergy Unknown UTI Uncoded 01/04/24 09:16 [facility] Disclaimer: The information contained in this section may have been updated after the patient was seen, as this information can be updated by other users. Medical History Anxiety Irregular menses Chest pain Social History Smoking Status: Current every day smoker tobacco type: cigarettes packs per day: 1 alcohol intake: never substance use type: denies use current occupational status: employed Travel in the last 8 weeks: None household members: family housing: house Have you lived/traveled outside [place] in past 30 days?: No Contact w/someone who lives/traveled outside US past 30 days?: No Exposure to someone with infectious disease in past 14 days?: No Do you have a fever (greater than 100.4 F or 38 C)?: No Have you tested positive for COVID-19: No Exposed to someone with COVID-19 in past 14 days?: No Do you have a sore throat?: No Do you have a cough?: No Do you have any weakness?: No Do you have any diarrhea?: No Are you experiencing any unusual bleeding?: No Do you have any muscle aches/pain?: No Do you have any abdominal pain?: No Are you experiencing loss of taste or smell?: No Other Medical History Have you received the Flu Vaccine for this season: No Have you received the Pneumonia Vaccine: No ROS Obtained: Yes other As per HPI Physical Exam General General appearance: alert and in no apparent distress Head Head exam: atraumatic and normocephalic Eye Eye exam: Present normal appearance Neck Neck exam: Present normal inspection Chest Chest inspection: Present normal inspection and symmetric chest wall rise Respiratory Respiratory exam: Present normal lung sounds bilaterally; Absent respiratory distress Cardiovascular Cardiovascular exam: Present regular rate and normal rhythm Abdominal Exam Abdominal exam: Present soft Neurological Exam Neurological exam: Present alert and oriented X3 Psychiatric Psychiatric exam: Present normal affect and normal mood Skin Skin exam: Present warm and dry Other Other exam information: Tonsillar erythema with exudates, anterior cervical adenopathy Medical Decision Making Medical Records Medical records reviewed: Yes I reviewed the patient's medical records. Screening: Per USPSTF and CDC recommendations, given the prevalence of disease in our region, it is our hospital?s policy to screen for HIV and viral Hepatitis for all patients aged 18 and over and those with ongoing risk factors. Сергей Inquiry Pt receiving controlled substance: No Vital Signs: 09/27/24 21:08 09/27/24 23:37 Temperature 98.2 F 98.6 F Temperature Source Oral Oral Pulse Rate 84 Pulse Rate [Left Radial] 83 Respiratory Rate 18 20 Blood Pressure 118/84 Blood Pressure [Right Arm] 108/78 L Blood Pressure Mean [Right Arm] 88 Blood Pressure Source Automatic Cuff Blood Pressure Source [Right Arm] Automatic Cuff Blood Pressure Position Sitting Blood Pressure Position [Right Arm] Sitting 02 Sat by Pulse Oximetry 98 Oxygen Delivery Method Room Air Room Air Lab Data Lab Results 09/27/24 22:07: SARS-CoV-2 (PCR) Not detected, Influenza A Untype (PCR) Not detected, Influenza Type B (PCR) Not detected 09/27/24 23:18: Group A Strep Rapid Positive A Orders (Tests/Meds): ED MEDICATIONS Discontinued Medications Generic Name Dose Route Start Last Admin Trade Name Franki PRN Reason Stop Dose Admin Ibuprofen 600 mg 09/27/24 22:42 09/27/24 22:54 Ibuprofen 600 Mg Tablet PO 09/27/24 22:43 600 mg ONCE ONE Administration ORDERS Category Date Time Status Rapid PCR Covid and Flu A/B Stat Lab 09/27/24 22:07 Completed Strep Scrn Group A (Rapid) Stat Lab 09/27/24 23:18 Completed Medical Decision Narrative: Patient with history and exam per above presenting for evaluation of sore throat Diagnoses considered include strep pharyngitis, viral pharyngitis, among others ED workup and treatment included: COVID, flu, strep testing Labs were independently interpreted by me, significant for strep positive My clinical impression at this time is most consistent with strep pharyngitis I discussed my clinical impression with patient and answered all questions. At this time, the evidence for any other entities in the differential is insufficient to warrant any further testing or ED observation. This was explained to the patient. The patient was advised that persistent or worsening symptoms require further evaluation. Critical Care Critical Care Time Critical Care Time: No
[2024-09-27 22:11] LABS: Coronavirus 19, PCR Not Detected (NotDetected); Influenza A, PCR Not Detected (NotDetected); Influenza B, PCR Not Detected (NotDetected)
[2024-09-27] MEDS: IBUPROFEN 600 MG TABLET PO (22:54)
[2024-09-27 23:34] LABS: Strep Scrn Group A (Rapid) Positive (Negative)
[2024-09-27 23:37] VITALS: BP 118/84; PULSE 84; RESP 20; TEMP 37; O2SAT 97
== END 2024-09-27 23:43 | disposition home or self-care (01) ==
PROVIDERS: Emergency Provider Emergency Medicine; PCP Nurse Practitioner Family
DX: H66.90 Otitis media, unspecified, unspecified ear (principal); R50.9 Fever, unspecified; J02.9 Acute pharyngitis, unspecified; H92.03 Otalgia, bilateral
CPT/HCPCS: 87430; 87636; 99283

== ENCOUNTER 2024-10-19 14:58 | Emergency (ER) | payer OTHER, SELFPAY ==
[2024-10-19 14:59] VITALS: BP 117/72; PULSE 84; RESP 18; TEMP 36.7; O2SAT 100; BMI 35.0
--- NOTE | 2024-10-19 15:19 | EXP.UTC ---
Discharge Plan Disposition Patient Disposition: Still a Patient Condition: Fair Prescriptions Prescriptions: No Action albuterol sulfate 90 mcg/actuation HFA aerosol inhaler 2 inh IH Q6HP PRN (Reason: Shortness Of Breath) 30 Days Qty: 8.5 5RF (DME) blood pressure monitor Kit See Rx Instructions .ROUTE .MEDSUPPLY Qty: 1 0RF Rx Instructions: As directed amoxicillin 500 mg capsule 500 mg PO BID 10 Days Qty: 20 0RF Referrals Follow up/Referrals: Dontae Mann APRN [Primary Care Provider] - See instructions Clinical Impressions Clinical Impression: Episode of syncope Print Language Print Language: Colombian Discharge ED Provider: Blair Ruiz [facility] [place] General Stated complaint: dizziness, loss of consciences [address] Time Seen by Provider: 10/19/24 15:19 History of Present Illness Provider Complaint: She states that for the past few days she has had dizziness and a feeling of light headedness. She states that she had a period of loss of consciousness yesterday and then again today before coming in. Related Data Previous Rx's ?Medication ?Instructions ?Recorded albuterol sulfate 90 mcg/actuation 2 inh inhalation Q6HP PRN 05/07/23 aerosol inhaler Shortness Of Breath 30 days #8.5 grams blood pressure monitor #1 ea 12/21/23 amoxicillin 500 mg capsule 500 mg PO BID 10 days #20 caps 09/27/24 Allergies Allergy/AdvReac Type Severity Reaction Status Date / Time tomato (From TOMATOES Allergy Unknown UTI Verified 03/21/24 10:11 (FOOD/DRUG)) azithromycin Allergy seizure Verified 03/21/24 10:11 activity dexamethasone Allergy abnormal Verified 03/21/24 10:11 breathing pattern and syncope venom-wasp Allergy Verified 03/21/24 10:11 Bumble Bee Allergy Unknown Uncoded 01/04/24 09:16 From TOMATOES (FOOD/DRUG) Allergy Unknown UTI Uncoded 01/04/24 09:16 [facility] Disclaimer: The information contained in this section may have been updated after the patient was seen, as this information can be updated by other users. Medical History Anxiety Irregular menses Chest pain Social History Smoking Status: Current every day smoker tobacco type: cigarettes packs per day: 1 alcohol intake: never substance use type: denies use current occupational status: employed Travel in the last 8 weeks: None household members: family housing: house Have you lived/traveled outside US in past 30 days?: No Contact w/someone who lives/traveled outside US past 30 days?: No Exposure to someone with infectious disease in past 14 days?: No Do you have a fever (greater than 100.4 F or 38 C)?: No Have you tested positive for COVID-19: No Exposed to someone with COVID-19 in past 14 days?: No Do you have a sore throat?: No Do you have a cough?: No Do you have any weakness?: No Do you have any diarrhea?: No Are you experiencing any unusual bleeding?: No Do you have any muscle aches/pain?: No Do you have any abdominal pain?: No Are you experiencing loss of taste or smell?: No ROS Obtained: Yes All systems reviewed & no additional complaints except as documented Constitutional Constitutional: Denies chills and Denies fever(s) Eyes Eyes: Denies eye discharge ENT Ears, Nose, Mouth, and Throat: Denies dizziness, Denies otalgia and Denies sore throat Cardiovascular Cardiovascular: Denies chest pain Respiratory Respiratory: Denies shortness of breath, Denies chest congestion, Denies cough, Denies stridor and Denies wheezing Gastrointestinal Gastrointestingal: Denies nausea or vomiting Musculoskeletal Musculoskeletal: Reports system reviewed and no additional complaints, except as documented and Denies arthralgias Integumentary/Breasts Skin/Breast: Denies rash Neurologic Neurologic: Denies dizziness and Denies paresthesias Allergic/Immunologic Allergic/Immunologic: Denies wheezing Physical Exam General General appearance: alert and in no apparent distress Head Head exam: atraumatic, normocephalic and normal inspection Eye Eye exam: Present normal appearance, PERRL and EOMI ENT ENT exam: Present normal exam, normal oropharynx, mucous membranes moist, TM's normal bilaterally and normal external ear exam Neck Neck exam: Present normal inspection, full ROM and trachea midline; Absent meningismus or lymphadenopathy Chest Chest inspection: Present normal inspection and symmetric chest wall rise; Absent tenderness Respiratory Respiratory exam: Present normal lung sounds bilaterally; Absent respiratory distress Cardiovascular Cardiovascular exam: Present regular rate and normal rhythm; Absent JVD Abdominal Exam Abdominal exam: Present soft and normal bowel sounds; Absent distention, tenderness or guarding Extremities Exam Extremities exam: Present normal inspection, full ROM and normal capillary refill; Absent calf tenderness Back Exam Back exam: Present normal inspection; Absent tenderness Neurological Exam Neurological exam: Present alert and oriented X3 Psychiatric Psychiatric exam: Present normal affect and normal mood Skin Skin exam: Present warm, dry, intact and normal color Lymphatic Lymphatic Findings: no adenopathy Medical Decision Making Medical Records Medical records reviewed: No I reviewed the patient's medical records. Screening: Per USPSTF and CDC recommendations, given the prevalence of disease in our region, it is our hospital?s policy to screen for HIV and viral Hepatitis for all patients aged 18 and over and those with ongoing risk factors. Сергей Inquiry Pt receiving controlled substance: No Medical Decision Narrative: She was transferred to the er due to her having syncopal episodes.
--- NOTE | 2024-10-19 15:30 | XR_ITS ---
PROCEDURE INFORMATION: Exam: XR Chest Exam date and time: 10/19/2024 4:26 PM Age: 23 years old Clinical indication: Other: Syncopal episodes; Additional info: Multiple syncopal episodes TECHNIQUE: Imaging protocol: Radiologic exam of the chest. Views: 2 views. COMPARISON: CR XR CHEST PORTABLE 06/25/2019 6:36 PM FINDINGS: Lungs: Normal. Pleural spaces: Normal. No pleural effusion. No pneumothorax. Heart/Mediastinum: Normal. No cardiomegaly. Bones/joints: Unremarkable. IMPRESSION: No acute findings.
[2024-10-19 15:43] VITALS: BP 124/71; PULSE 90; O2SAT 99
--- NOTE | 2024-10-19 15:44 | PC.NURSE ---
DR FIELDS AT BEDSIDE
--- NOTE | 2024-10-19 15:48 | ECG_ITS ---
APPROVED REPORT Exam: Resting ECG HR:79 bpm ECG Measurements Heart Rate 79 AXES TN 137 P 44 QRSd 96 QRS 65 QT 387 T 44 QTc 422 Conclusion Sinus rhythm with sinus arrhythmia Electronically signed by : IDALMIS FIELDS, 10/19/2024 20:30:22
[2024-10-19 15:50] LABS: Basophils # 0.1 K/mm3 (0-0.2); Basophils % 0.6 % (0.1-2.0); Eosinophils # 0.3 K/mm3 (0.0-0.4); Eosinophils % 3.6 % (0.1-12.0); Hematocrit 40.2 % (37.0-47.0); Hemoglobin 12.8 g/dL (12.2-16.2); Lymphocytes # 2.9 K/mm3 (0.7-4.5); Mean Corpuscular HGB Conc 31.8 g/dL (31.8-35.4); Mean Corpuscular Hemoglobin 25.3 pg (27.0-31.2); Mean Corpuscular Volume 79.4 fl (81-99); Mean Platelet Volume 11.2 fl (7.4-10.4); Monocytes # 0.9 K/mm3 (0.1-1.0); Monocytes % 9.2 % (1.7-9.3); Neutrophils # 5.3 K/mm3 (1.8-7.8); Neutrophils % 55.4 % (37.0-80.0); Platelet Count 283 K/mm3 (142-424); Red Blood Count 5.06 M/mm3 (4.20-5.40); Red Cell Distribution Width 13.8 % (11.5-17.5); White Blood Count 9.5 K/mm3 (4.8-10.8)
[2024-10-19 15:57] LABS: Albumin Level 4.5 g/dl (3.5-5.0); Chloride 106 mmol/L (98-107); Potassium 4.1 mmoL/L (3.5-5.1); Sodium 139 mmol/L (136-145)
[2024-10-19 16:00] LABS: Alanine Aminotransferase 21 U/L (12-78); Albumin/Globulin Ratio 1.6 (1.1-1.8); Alkaline Phosphatase 100 U/L (38-126); Anion Gap 15.1 mEq/L (5-15); Aspartate Amino Transferase 27 U/L (14-36); Bilirubin,Total 0.2 mg/dl (0.2-1.3); Blood Urea Nitrogen 17 mg/dl (7-17); Calcium 9.3 mg/dl (8.4-10.2); Carbon Dioxide 22 mmol/L (22.0-30.0); Estimated Glomerular Filt Rate 104 ml/min (>60); GFR (African American) 125 ML/MIN (>60); Globulin 2.8 g/dL (1.3-3.2); Glucose 92 mg/dl (74-100); Magnesium 2.2 mg/dl (1.6-2.3); Total Protein,Serum 7.3 g/dl (6.3-8.2)
[2024-10-19 16:01] VITALS: BP 113/64; PULSE 86; O2SAT 96
[2024-10-19 16:02] LABS: Activated Partial Thrombo Time 24.5 seconds (22.8-30.6); INR 0.93 (0.9-1.1); Prothrombin Time 10.5 seconds (10.1-12.5)
[2024-10-19 16:10] LABS: NT Pro Brain Natriuretic Pep. 85.2 pg/mL (0-125)
[2024-10-19 16:14] LABS: Troponin I < 0.01 ng/ml (0.00-0.034)
[2024-10-19 16:17] LABS: HCG,Quantitative < 2 mIU/ml (0-5.42)
[2024-10-19 16:18] LABS: T4 (Thyroxine) 7.3 ug/dl (5.53-11.0)
[2024-10-19 16:27] LABS: Lactic Acid 0.7 mmol/L (0.7-2.1)
--- NOTE | 2024-10-19 16:27 | HMH.EDGENADL ---
Discharge Plan Disposition Patient Disposition: Home, Self-Care Condition: Fair Prescriptions Prescriptions: No Action albuterol sulfate 90 mcg/actuation HFA aerosol inhaler 2 inh IH Q6HP PRN (Reason: Shortness Of Breath) 30 Days Qty: 8.5 5RF (DME) blood pressure monitor Kit See Rx Instructions .ROUTE .MEDSUPPLY Qty: 1 0RF Rx Instructions: As directed amoxicillin 500 mg capsule 500 mg PO BID 10 Days Qty: 20 0RF Referrals Follow up/Referrals: Dontae Mann APRN [Primary Care Provider] - See instructions James Schneider MD [Staff Physician] - See instructions Activity Restrictions/Add. Instructions Additional Instructions/Restrictions: Follow-up with cardiology regarding this visit to the emergency department and following with them regarding the heart monitor. Call your family doctor to establish care for this visit to the emergency department and schedule follow-up within 48 hours to ensure improvement. If you have any worsening of your condition or any other concerning signs or symptoms, return to the emergency department or your primary care doctor for further evaluation. If you feel you are going to pass out again, sit down on the floor to prevent passing out. Clinical Impressions Clinical Impression: Vasovagal syncope Print Language Print Language: Hungarian Discharge ED Provider: Blair Ruiz General Adult HPI General Stated complaint: dizziness, loss of consciences [address] Time Seen by Provider: 10/19/24 15:19 History of Present Illness HPI narrative: Please note that above description of symptoms, in this electronic medical record under categorization of recalled from ER triage doctor by RN are reflective of an initial nursing assessment, however, is not reflective of my full history and physical exam that was personally taken and clarified. Consequentially, this preceding description of symptoms, which may include the patient's categorized chief complaint in the EMR, do not reflect my personal clinical impression, and the ultimate description of history of present illness and patient stated complaints should be deferred to this section of the note. Unless stated otherwise or congruent with this section of the note, additional signs, symptoms, or incongruence should be interpreted as inaccurate with my clinical impression. Related Data Previous Rx's ?Medication ?Instructions ?Recorded albuterol sulfate 90 mcg/actuation 2 inh inhalation Q6HP PRN 05/07/23 aerosol inhaler Shortness Of Breath 30 days #8.5 grams blood pressure monitor #1 ea 12/21/23 amoxicillin 500 mg capsule 500 mg PO BID 10 days #20 caps 09/27/24 Allergies Allergy/AdvReac Type Severity Reaction Status Date / Time tomato (From TOMATOES Allergy Unknown UTI Verified 03/21/24 10:11 (FOOD/DRUG)) azithromycin Allergy seizure Verified 03/21/24 10:11 activity dexamethasone Allergy abnormal Verified 03/21/24 10:11 breathing pattern and syncope venom-wasp Allergy Verified 03/21/24 10:11 Bumble Bee Allergy Unknown Uncoded 01/04/24 09:16 From TOMATOES (FOOD/DRUG) Allergy Unknown UTI Uncoded 01/04/24 09:16 [facility] Disclaimer: The information contained in this section may have been updated after the patient was seen, as this information can be updated by other users. Medical History Anxiety Irregular menses Chest pain Social History Smoking Status: Current every day smoker tobacco type: cigarettes packs per day: 1 alcohol intake: never substance use type: denies use current occupational status: employed Travel in the last 8 weeks: None household members: family housing: house Have you lived/traveled outside US in past 30 days?: No Contact w/someone who lives/traveled outside US past 30 days?: No Exposure to someone with infectious disease in past 14 days?: No Do you have a fever (greater than 100.4 F or 38 C)?: No Have you tested positive for COVID-19: No Exposed to someone with COVID-19 in past 14 days?: No Do you have a sore throat?: No Do you have a cough?: No Do you have any weakness?: No Do you have any diarrhea?: No Are you experiencing any unusual bleeding?: No Do you have any muscle aches/pain?: No Do you have any abdominal pain?: No Are you experiencing loss of taste or smell?: No Other Medical History Have you received the Flu Vaccine for this season: No Have you received the Pneumonia Vaccine: No ROS Obtained: Yes All systems reviewed & no additional complaints except as documented Physical Exam General General appearance: alert and in no apparent distress Head Head exam: atraumatic and normocephalic Eye Eye exam: Present normal appearance, PERRL and EOMI Neck Neck exam: Present normal inspection, full ROM and trachea midline Respiratory Respiratory exam: Absent respiratory distress, wheezes, stridor, accessory muscle use or prolonged expiratory phase Cardiovascular Cardiovascular exam: Present other (Pulses equal symmetric in upper and lower extremities) Abdominal Exam Abdominal exam: Present soft; Absent distention, tenderness or pulsatile mass Extremities Exam Extremities exam: Absent edema Neurological Exam Neurological exam: Present alert, oriented X3 and CN II-XII intact; Absent motor sensory deficit Skin Skin exam: Present warm and dry; Absent diaphoresis or erythema Medical Decision Making Medical Records Medical records reviewed: Yes I reviewed the patient's medical records. Screening: Per USPSTF and CDC recommendations, given the prevalence of disease in our region, it is our hospital?s policy to screen for HIV and viral Hepatitis for all patients aged 18 and over and those with ongoing risk factors. Сергей Inquiry Pt receiving controlled substance: No Сергей was queried for this patient: No Vital Signs: 10/19/24 15:43 10/19/24 16:01 10/19/24 16:30 Pulse Rate 90 86 105 H Blood Pressure 124/71 113/64 125/68 02 Sat by Pulse Oximetry 99 96 97 Lab Data Lab Results 10/19/24 15:43: WBC 9.5, RBC 5.06, Hgb 12.8, Hct 40.2, MCV 79.4 L, MCH 25.3 L, MCHC 31.8, RDW 13.8, Plt Count 283, MPV 11.2 H, Neut % (Auto) 55.4, Lymph % (Auto) 31.0, [place] % (Auto) 9.2, Eos % (Auto) 3.6, Baso % (Auto) 0.6, Neut # (Auto) 5.3, Lymph # (Auto) 2.9, [place] # (Auto) 0.9, Eos # (Auto) 0.3, Baso # (Auto) 0.1, PT 10.5, INR 0.93, APTT 24.5, Sodium 139, Potassium 4.1, Chloride 106, Carbon Dioxide 22, Anion Gap 15.1 H, BUN 17, Creatinine 0.70, Estimated GFR 104, Est GFR ( Amer) 125, Glucose 92, Calcium 9.3, Magnesium 2.2, Total Bilirubin 0.2, AST 27, ALT 21, Alkaline Phosphatase 100, Troponin I < 0.01, NT-Pro-B Natriuret Pep 85.2, Total Protein 7.3, Albumin 4.5, Globulin 2.8, Albumin/Globulin Ratio 1.6, TSH 2.07, Thyroxine (T4) 7.3, HCG, Quant < 2 10/19/24 16:07: Lactate 0.7 10/19/24 15:43 10/19/24 15:43 Orders (Tests/Meds): ORDERS Category Date Time Status CXR 2 view (NOT portable) [XR chest 2V] Stat Exams 10/19/24 15:30 Taken Complete Blood Count Auto Diff Stat Lab 10/19/24 15:43 Completed Comprehensive Metabolic Panel Stat Lab 10/19/24 15:43 Completed HCG,Quantitative Stat Lab 10/19/24 15:43 Completed Lactic Acid Stat Lab 10/19/24 16:07 Completed Magnesium Stat Lab 10/19/24 15:43 Completed NT Pro Brain Natriuretic Pep. Stat Lab 10/19/24 15:43 Completed PT INR [Prothrombin Time INR] Stat Lab 10/19/24 15:43 Completed PTT [Activated Partial Thrombo Time] Stat Lab 10/19/24 15:43 Completed T4 (Thyroxine) Stat Lab 10/19/24 15:43 Completed TSH [Thyroid Stimulating Hormone] Stat Lab 10/19/24 15:43 Completed Troponin I Q3H Lab 10/19/24 18:30 Ordered Troponin I Q3H Lab 10/19/24 21:30 Ordered Troponin I Stat Lab 10/19/24 15:43 Completed Medical Decision Narrative: 23-year-old female presenting from urgent care with concern for syncope. Patient states that she has had 2 episodes of syncope over the last 24 hours. States that the first time she was sitting on the toilet, trying have a bowel movement, she states when she stood up she got tunnel vision and woke up on the floor. She states that today, she had another syncopal episode. She has been moving, so she lifted a box, stood up, then she woke up on the ground next to the box. Also had tunnel vision prior to this. No chest pain, shortness of breath, urinating on herself, headache, shortness of breath, neurologic deficits, or any other concerns. States that she is diagnosed with tachycardia in the past, was post follow-up with cardiology for tilt table test but did not. Not currently taking any medications, although she is supposed to be taking propranolol for tachycardia consistent with medical noncompliance. History was obtained via conversation with patient. On arrival, patient hemodynamically stable, alert, oriented x4, appropriate, GCS 15, moving all extremities spontaneously, pupils equal and reactive to light. Full physical exam performed and significant for very well-appearing female no acute distress. Orthostatic vital signs are negative. Cardiac exam with no murmurs gallops or rubs. Abdomen soft, nontender, nondistended. Lungs are clear. No lower extremity edema. Neurologically intact including her nerve, motor, cerebellar, sensory, and ambulatory.. Differential includes vasovagal syncope, orthostatic syncope, metabolic abnormality, neurologic abnormality, arrhythmia, , dehydration, among others. Patient placed on continuous cardiac monitoring and continuous pulse ox with initial blood pressure 125/68, heart rate 78, saturation 97% on room air. Independent interpretation of EKG shows sinus rhythm 79 bpm with sinus arrhythmia. NH interval 137, QRS 96, QTc 422. Normal axis. No acute ischemic change or ectopic beats. On independent interpretation of imaging, no acute cardiopulmonary airspace disease on chest x-ray. See radiology read for full review of final results. Heart score 0. On reevaluation, patient still completely asymptomatic. Holter monitor was placed out of abundance of caution. \ Given patient presentation, workup, history, this most likely represents vasovagal syncope in the setting of rosio- bowel movement and lifting Valsalva related syncope. Because patient at baseline without signs or symptoms of clinical decompensation, deemed appropriate for discharge. Results were relayed to patient who voiced understanding and were agreeable to outpatient management and follow up. I discussed my clinical impression with patient and answered all questions. At this time, the evidence for any other entities in the differential is insufficient to warrant any further testing or ED observation. This was explained as well. Advisory was given that persistent or worsening symptoms require further evaluation. I confirmed the understanding of this discussion. [employer] disclaimer Much of this encounter note is an electronic wafer abrading machine tender spoken language to printed text. Electronic wafer abrading machine tender of the spoken language may permit errors. Although I have reviewed the note, some errors may still exist. Critical Care Critical Care Time Critical Care Time: No
[2024-10-19 16:30] VITALS: BP 125/68; PULSE 105; O2SAT 97
[2024-10-19 16:31] LABS: Thyroid Stimulating Hormone 2.07 uIU/mL (0.465-4.68)
--- NOTE | 2024-10-19 16:39 | PC.NURSE ---
RESPIRATORY NOTIFIED OF HOLTER MONITOR ORDER
[2024-10-19 17:00] VITALS: BP 125/68; PULSE 90; RESP 16; TEMP 36.7; O2SAT 100
== END 2024-10-19 17:00 | disposition home or self-care (01) ==
LOC: UTC 15:24 → ER 15:26
PROVIDERS: Emergency Provider Emergency Medicine; PCP Nurse Practitioner Family
DX: R55 Syncope and collapse (principal); R42 Dizziness and giddiness
CPT/HCPCS: 71046; 80053; 83605; 83735; 83880; 84436; 84443; 84484; 84702; 85025; 85610; 85730; 93005; 93225; 93227; 99284

== ENCOUNTER 2024-10-26 14:03 | Outpatient (CLI) | payer OTHER, SELFPAY ==
[2024-10-26 15:06] LABS: Basophils # 0.1 K/mm3 (0-0.2); Basophils % 0.8 % (0.1-2.0); Eosinophils # 0.4 K/mm3 (0.0-0.4); Eosinophils % 3.9 % (0.1-12.0); Hematocrit 40.3 % (37.0-47.0); Hemoglobin 13.1 g/dL (12.2-16.2); Lymphocytes # 2.5 K/mm3 (0.7-4.5); Lymphocytes % 27.7 % (10-50); Mean Corpuscular HGB Conc 32.5 g/dL (31.8-35.4); Mean Corpuscular Hemoglobin 25.4 pg (27.0-31.2); Mean Corpuscular Volume 78.1 fl (81-99); Mean Platelet Volume 11.3 fl (7.4-10.4); Monocytes # 0.7 K/mm3 (0.1-1.0); Monocytes % 7.9 % (1.7-9.3); Neutrophils # 5.5 K/mm3 (1.8-7.8); Neutrophils % 59.6 % (37.0-80.0); Platelet Count 264 K/mm3 (142-424); Red Blood Count 5.16 M/mm3 (4.20-5.40); Red Cell Distribution Width 13.8 % (11.5-17.5); White Blood Count 9.2 K/mm3 (4.8-10.8)
[2024-10-26 15:20] LABS: D-Dimer 0.45 ug/mL (0.0-0.5)
[2024-10-26 15:27] LABS: Alanine Aminotransferase 17 U/L (12-78); Albumin Level 4.3 g/dl (3.5-5.0); Alkaline Phosphatase 101 U/L (38-126); Aspartate Amino Transferase 22 U/L (14-36); Bilirubin,Direct 0.1 mg/dl (0.0-0.4); Bilirubin,Indirect 0.1 mg/dL (0.0-0.9); Bilirubin,Total 0.2 mg/dl (0.2-1.3); Bilirubin,Unconjugated 0.1 mg/dL (0.0-1.1); Blood Urea Nitrogen 20 mg/dl (7-17); Calcium 9.4 mg/dl (8.4-10.2); Carbon Dioxide 25 mmol/L (22.0-30.0); Chloride 106 mmol/L (98-107); Chol/HDL Ratio 2.8 (1-3.5); Cholesterol 123 mg/dl (140-200); Estimated Glomerular Filt Rate 104 ml/min (>60); GFR (African American) 125 ML/MIN (>60); Glucose 82 mg/dl (74-100); HDL Cholesterol 44 mg/dl (40-60); Magnesium 1.9 mg/dl (1.6-2.3); Sodium 138 mmol/L (136-145); Total Protein,Serum 6.6 g/dl (6.3-8.2); Triglycerides 77 mg/dl (30-150); VLDL Cholesterol 15 mg/dL (0-40)
[2024-10-26 15:38] LABS: Direct LDL Cholesterol 67.47 mg/dL (100-129)
[2024-10-26 15:43] LABS: Free T4 (Free Thyroxine) 0.88 ng/dl (0.78-2.19)
[2024-10-26 15:54] LABS: Anion Gap 11.6 mEq/L (5-15); Potassium 4.6 mmoL/L (3.5-5.1)
[2024-10-26 15:58] LABS: Thyroid Stimulating Hormone 2.27 uIU/mL (0.465-4.68)
== END 2024-10-26 23:59 | disposition home or self-care (01) ==
LOC: LAB 14:04
PROVIDERS: PCP Nurse Practitioner Family; Visit Provider Nurse Practitioner
DX: R42 Dizziness and giddiness (principal); R00.2 Palpitations; R55 Syncope and collapse
CPT/HCPCS: 36415; 80048; 80061; 80076; 83735; 84439; 84443; 85025; 85378; 93270

== ENCOUNTER 2024-11-02 12:54 | Outpatient (CLI) | payer OTHER, SELFPAY ==
--- NOTE | 2024-11-02 12:57 | CA_ITS ---
APPROVED REPORT EXAM: Comprehensive 2D, Doppler, and color-flow Echocardiogram Chief Of Field Operations: Davina Jhaveri, RT(R) Ht: 5 ft 4 in Wt: 216lbs BSA: 2.02 BP: 116/66 mmHg Indications: Syncope, smoker, palpitations, fatigue, dizziness 2D Dimensions LVEF (Wheeler's) 54.40 % F: 54 - 74 LV Volume 70.00 mL F: 46 - 106 LV Volume Index 34.7 mL/m2 F: 29 - 61 LA Volume 24.50 mL LA Volume Index 12.13 mL/m2 (M/F) 16-34 EF AP4 53.10 % EF AP2 57.6 % EF BP 54.4 % GL Strain -19.9 % M-Mode Dimensions RVDd 2.19 cm (0.9-2.6) LA Diam 2.79 cm (1.9-4.0) LVDd 4.91 cm (3.5-5.7) LVDs 3.75 cm (3.5-5.7) IVSd 0.84 cm (0.6-1.1) PWd 0.69 cm (0.6-1.1) EF (Teich) 47.10% FS 23.60% EDV (Teich) 113.40 mL ESV (Teich) 60.00 mL LV Diastology E Decel Time 150 (160-240 msec) E/A Ratio 1.3 Mitral Valve MV E Max Alek. 72.0 (40-130 cm/s) MV A Velocity 56.0 (40-130 cm/s) E/A Ratio 1.29 MV PHT 44.0 ms Left Ventricle The left ventricle is normal size. The left ventricular systolic function is normal. The left ventricular ejection fraction is within the normal range. There is normal left ventricular wall thickness. There is normal LV segmental wall motion. The left ventricular diastolic function is normal. LVEF is 55%. Right Ventricle The right ventricle is normal size. The right ventricular systolic function is normal. Atria The left atrium size is normal. The right atrium size is normal. There is no Doppler evidence of interatrial shunt. Aortic Valve The aortic valve opens well. There is no aortic valvular stenosis. No aortic regurgitation is present. Mitral Valve The mitral valve is normal in structure. No evidence of mitral valve stenosis. Trace mitral regurgitation. Tricuspid Valve Tricuspid valve is grossly normal in structure and function. Trace tricuspid regurgitation. There is insufficient TR jet to estimate RVSP. Pulmonic Valve The pulmonary valve is normal in structure. Trace pulmonic regurgitation. Great Vessels The aortic root is normal in size. The ascending aorta is not well-visualized. IVC is normal in size and collapses >50% with inspiration. Pericardium There is no pericardial effusion. Other Information Study Quality: Adequate Conclusion Normal biventricular systolic function. No significant valvular stenosis or regurgitation. Electronically signed by : Skye Delgado MD 11/11/2024 00:58:06
== END 2024-11-02 23:59 | disposition home or self-care (01) ==
LOC: RT 12:55
PROVIDERS: PCP Nurse Practitioner Family; Visit Provider Nurse Practitioner
DX: R42 Dizziness and giddiness (principal); R00.2 Palpitations; R55 Syncope and collapse
CPT/HCPCS: 93306

== ENCOUNTER 2024-12-02 16:53 | Emergency (ER) | payer OTHER, SELFPAY ==
[2024-12-02] VITALS (10 sets, daily range): BP systolic 100–130; BP diastolic 56–73; PULSE 104–126; RESP 15–24; TEMP 37.1–37.4; O2SAT 98–100; BMI 35.5
--- NOTE | 2024-12-02 16:54 | ECG_ITS ---
APPROVED REPORT Exam: Resting ECG HR:129 bpm ECG Measurements Heart Rate 129 AXES ME 147 P 51 QRSd 102 QRS 93 QT 304 T 43 QTc 380 Conclusion SINUS TACHYCARDIA BORDERLINE RIGHT AXIS DEVIATION [QRS AXIS > 90] POSSIBLE RIGHT VENTRICULAR CONDUCTION DELAY [RSR (QR) IN V1/V2] ABNORMAL RHYTHM ECG UNCONFIRMED REPORT Electronically signed by : Rocio Riley, 12/03/2024 00:11:38
--- NOTE | 2024-12-02 17:21 | XR_ITS ---
PROCEDURE INFORMATION: Exam: XR Chest Exam date and time: 12/02/2024 5:58 PM Age: 24 years old Clinical indication: Other: Chest pain; Additional info: Cp TECHNIQUE: Imaging protocol: Radiologic exam of the chest. Views: 1 view. COMPARISON: CR XR CHEST 2V 10/19/2024 4:26 PM FINDINGS: Lungs: Unremarkable. No consolidation. Pleural spaces: Unremarkable. No pleural effusion. No pneumothorax. Heart/Mediastinum: Unremarkable. No cardiomegaly. Bones/joints: Unremarkable. IMPRESSION: No acute findings.
[2024-12-02 17:33] LABS: Basophils # 0.1 K/mm3 (0-0.2); Basophils % 0.3 % (0.1-2.0); Eosinophils # 0.1 K/mm3 (0.0-0.4); Eosinophils % 0.7 % (0.1-12.0); Hematocrit 35.5 % (37.0-47.0); Hemoglobin 11.4 g/dL (12.2-16.2); Lymphocytes % 14.1 % (10-50); Mean Corpuscular HGB Conc 32.1 g/dL (31.8-35.4); Mean Corpuscular Hemoglobin 24.7 pg (27.0-31.2); Mean Corpuscular Volume 76.8 fl (81-99); Mean Platelet Volume 10.9 fl (7.4-10.4); Monocytes # 1.6 K/mm3 (0.1-1.0); Monocytes % 10.8 % (1.7-9.3); Neutrophils # 10.5 K/mm3 (1.8-7.8); Neutrophils % 73.7 % (37.0-80.0); Platelet Count 304 K/mm3 (142-424); Red Blood Count 4.62 M/mm3 (4.20-5.40); Red Cell Distribution Width 13.3 % (11.5-17.5); White Blood Count 14.3 K/mm3 (4.8-10.8)
[2024-12-02] MEDS: ACETAMINOPHEN 500MG TAB 1000 MG PO (17:35)
[2024-12-02] MEDS: IBUPROFEN 800 MG TABLET PO (17:35)
--- NOTE | 2024-12-02 17:36 | HMH.EDCP ---
Discharge Plan Disposition Patient Disposition: Home, Self-Care Condition: Good Prescriptions Prescriptions: New acetaminophen [Pain Relief (acetaminophen)] 325 mg tablet 650 mg PO Q6H Qty: 120 0RF ibuprofen 800 mg tablet 800 mg PO Q6H Qty: 90 0RF methocarbamol 500 mg tablet 500 mg PO QID Qty: 120 0RF No Action albuterol sulfate 90 mcg/actuation HFA aerosol inhaler 2 inh IH Q6HP PRN (Reason: Shortness Of Breath) 30 Days Qty: 8.5 5RF (DME) blood pressure monitor Kit See Rx Instructions .ROUTE .MEDSUPPLY Qty: 1 0RF Rx Instructions: As directed Referrals Follow up/Referrals: Murtaza Echevarria MD [Staff Physician] - See instructions (New mediastinal mass) Provider,MD Tanika [Referring] - See instructions Activity Restrictions/Add. Instructions Additional Instructions/Restrictions: A referral has been placed to [facility] oncology. They are typically available Wednesday through Wednesday. Phone number is [phone], extension [phone]. Referral is to Dr. Echevarria. They will be able to guide further evaluation and management of this new mediastinum mass. In the meantime, you can alternate Tylenol and ibuprofen every 3 hours or take them together every 6 hours. Use the muscle relaxers up to 4 times per day. Maximum single dose of 1500 mg. Please return to ED if your symptoms worsen, change in location, change in severity, new symptoms develop or if you become concerned for your health. Clinical Impressions Clinical Impression: Mass of mediastinum Chest pain Qualifiers: Chest pain type: chest pain on breathing Qualified Code(s): R07.1 - Chest pain on breathing Stand Alone Forms Stand Alone Forms: Work/School Release Print Language Print Language: Indian Discharge ED Provider: Rocio Riley HPI General Chief Complaint: Chest Pain Stated Complaint: chest discomfort Time Seen by Provider: 12/02/24 16:58 Mode of Arrival: Ambulatory Source of Information: Patient Limitations: No Limitations Description of Symptoms (Recalled from ER Triage Doc. by RN): pt presents to ED with c/o chest pain ongoing for thep ast two weeks. pt reports cough ongoing for the past week. pt does have known high heart rate and is seeing cardiology office for workup. pt reports pain with inspiration and cough. History of Present Illness HPI narrative: Salvador Valerio is a 24-year-old female presenting with chest pain. Patient states she has had central chest pain for the past 2 weeks associated with a cough. Patient states the pain increases when she lays flat and takes deep breaths. Patient has a history of asthma and has been taking her inhaler more frequently without relief. Patient states she has not taken any [id number] pain medication because she does not have any. Patient has not had fevers. Patient's chest pain does not radiate to the back, neck, arms and is not associated with diaphoresis or nausea. Patient denies personal history of DVT or PE. Patient has history of syncope that is currently being worked up by cardiology and she recently had a 2-week Holter monitor. Patient states she has tachycardia at baseline and they are not sure why. Patient typically has a resting heart rate over 110. Related Data Previous Rx's ?Medication ?Instructions ?Recorded albuterol sulfate 90 mcg/actuation 2 inh inhalation Q6HP PRN 05/07/23 aerosol inhaler Shortness Of Breath 30 days #8.5 grams blood pressure monitor #1 ea 12/21/23 acetaminophen 325 mg tablet (Pain 650 mg (2 x 325 mg) PO Q6H #120 12/02/24 Relief (acetaminophen)) tabs ibuprofen 800 mg tablet 800 mg PO Q6H #90 tabs 12/02/24 methocarbamol 500 mg tablet 500 mg PO QID #120 tabs 12/02/24 Allergies Allergy/AdvReac Type Severity Reaction Status Date / Time tomato (From TOMATOES Allergy Unknown UTI Verified 10/26/24 13:33 (FOOD/DRUG)) azithromycin Allergy seizure Verified 10/26/24 13:33 activity dexamethasone Allergy abnormal Verified 10/26/24 13:33 breathing pattern and syncope venom-wasp Allergy Verified 10/26/24 13:33 Bumble Bee Allergy Unknown Uncoded 10/26/24 13:33 From TOMATOES (FOOD/DRUG) Allergy Unknown UTI Uncoded 10/26/24 13:33 [facility] Disclaimer: The information contained in this section may have been updated after the patient was seen, as this information can be updated by other users. Medical History Anxiety Irregular menses Chest pain Social History Smoking Status: Former smoker tobacco type: cigarettes packs per day: 1 alcohol intake: never substance use type: denies use current occupational status: employed Travel in the last 8 weeks: None household members: family housing: house Have you lived/traveled outside US in past 30 days?: No Contact w/someone who lives/traveled outside US past 30 days?: No Exposure to someone with infectious disease in past 14 days?: No Do you have a fever (greater than 100.4 F or 38 C)?: No Have you tested positive for COVID-19: No Exposed to someone with COVID-19 in past 14 days?: No Do you have a sore throat?: No Do you have a cough?: No Do you have any weakness?: No Do you have any diarrhea?: No Are you experiencing any unusual bleeding?: No Do you have any muscle aches/pain?: No Do you have any abdominal pain?: No Are you experiencing loss of taste or smell?: No Other Medical History Have you received the Flu Vaccine for this season: No Have you received the Pneumonia Vaccine: No ROS Obtained: Yes All systems reviewed & no additional complaints except as documented Physical Exam General General appearance: alert and in no apparent distress Head Head exam: atraumatic ENT ENT exam: Present normal exam Neck Neck exam: Present full ROM Chest Chest inspection: Present symmetric chest wall rise Respiratory Respiratory exam: Present normal lung sounds bilaterally; Absent wheezes Cardiovascular Cardiovascular exam: Present regular rate, normal rhythm, tachycardia and normal heart sounds Abdominal Exam Abdominal exam: Present soft; Absent distention or tenderness Extremities Exam Extremities exam: Present full ROM; Absent edema Neurological Exam Neurological exam: Present alert and oriented X3 Psychiatric Psychiatric exam: Present normal mood and anxious Skin Skin exam: Present warm and dry HEART Score HEART Score HEART Score assessment performed?: No History (anamnesis): Slightly suspicious ECG: Non-specific disturbance Age: <45 years Risk factors: No known risk factors Procedures Limited Ultrasound Indication:: Chest pain Views:: Parasternal long, parasternal short Findings:: No abnormalities Interpretation:: No pericardial effusion or gross wall motion abnormalities noted Critical Care Critical Care Time Critical Care Time: No Medical Decision Making Medical Records Medical records reviewed: Yes I reviewed the patient's medical records. Сергей Inquiry Pt receiving controlled substance: No Сергей was queried for this patient: No Vital Signs Vital Signs: 12/02/24 16:53 12/02/24 16:55 12/02/24 17:30 Temperature 99.4 F Temperature Source Oral Pulse Rate 126 H 124 H Pulse Rate [Left Radial] 125 H Respiratory Rate 19 18 Blood Pressure 130/73 Blood Pressure [Right Arm] 130/73 Blood Pressure Mean [Right Arm] 92 Blood Pressure Source Blood Pressure Position 02 Sat by Pulse Oximetry 98 99 99 Oxygen Delivery Method Room Air Room Air 12/02/24 18:30 12/02/24 19:00 12/02/24 19:15 Temperature Temperature Source Pulse Rate 121 H 115 H 107 H Pulse Rate [Left Radial] Respiratory Rate 16 24 24 Blood Pressure 110/62 102/56 L Blood Pressure [Right Arm] Blood Pressure Mean [Right Arm] Blood Pressure Source Blood Pressure Position 02 Sat by Pulse Oximetry 98 99 99 Oxygen Delivery Method Room Air Room Air 12/02/24 19:30 12/02/24 19:45 12/02/24 20:18 Temperature Temperature Source Pulse Rate 113 H 111 H 104 H Pulse Rate [Left Radial] Respiratory Rate 24 17 15 Blood Pressure 100/65 L Blood Pressure [Right Arm] Blood Pressure Mean [Right Arm] Blood Pressure Source Blood Pressure Position 02 Sat by Pulse Oximetry 99 100 98 Oxygen Delivery Method 12/02/24 21:00 Temperature 98.7 F Temperature Source Oral Pulse Rate 106 H Pulse Rate [Left Radial] Respiratory Rate 19 Blood Pressure 126/73 Blood Pressure [Right Arm] Blood Pressure Mean [Right Arm] Blood Pressure Source Automatic Cuff Blood Pressure Position Sitting 02 Sat by Pulse Oximetry Oxygen Delivery Method Room Air Lab Data Lab results reviewed: Yes I reviewed the patient's lab results. Labs: Lab Results 12/02/24 17:06: WBC 14.3 H, RBC 4.62, Hgb 11.4 L, Hct 35.5 L, MCV 76.8 L, MCH 24.7 L, MCHC 32.1, RDW 13.3, Plt Count 304, MPV 10.9 H, Neut % (Auto) 73.7, Lymph % (Auto) 14.1, [place] % (Auto) 10.8 H, Eos % (Auto) 0.7, Baso % (Auto) 0.3, Neut # (Auto) 10.5 H, Lymph # (Auto) 2.0, [place] # (Auto) 1.6 H, Eos # (Auto) 0.1, Baso # (Auto) 0.1, D-Dimer 0.55 H, Sodium 137, Potassium 4.0, Chloride 103, Carbon Dioxide 22, Anion Gap 16.0 H, BUN 11, Creatinine 0.50 L, Estimated Creat Clear 273, Estimated GFR 152, Est GFR ( Amer) 183, Glucose 96, Calcium 8.8, C-Reactive Protein 79.9 H, Serum HCG, Qual Negative, HCV Ab CHRISTOPHER w/Rflx PCR Qn Negative, HIV Ag/Ab Combo Qual Negative 12/02/24 17:37: SARS-CoV-2 (PCR) Not detected, Influenza A Untype (PCR) Not detected, Influenza Type B (PCR) Not detected 12/02/24 17:06 12/02/24 17:06 Response Orders (Tests/Meds): ED MEDICATIONS Discontinued Medications Generic Name Dose Route Start Last Admin Trade Name Freq PRN Reason Stop Dose Admin Acetaminophen 1,000 mg 12/02/24 17:22 12/02/24 17:35 Acetaminophen 500mg Tab PO 12/02/24 17:23 1,000 mg ONCE ONE Administration Ibuprofen 800 mg 12/02/24 17:22 12/02/24 17:35 Ibuprofen 800 Mg Tablet PO 12/02/24 17:23 800 mg ONCE ONE Administration Iopamidol 70 ml 12/02/24 18:35 12/02/24 18:36 Iopamidol-370 (76%);100ml Bottle IV 12/02/24 18:36 70 ml ONCE ONE Administration Sodium Chloride 50 ml 12/02/24 18:35 12/02/24 18:36 0.9 % Sodium Chloride 50 Ml Vial IV 12/02/24 18:36 50 ml ONCE ONE Administration Sodium Chloride 10 ml 12/02/24 18:35 12/02/24 18:36 Sodium Chloride 0.9% 10ml Syr (Rad Only) IV 12/02/24 18:36 10 ml ONCE ONE Administration ORDERS Category Date Time Status CT angio chest PE protocol Stat Cat Scan 12/02/24 18:26 Completed CXR --portable [XR chest portable] Stat Exams 12/02/24 17:21 Completed POCUS Point of Care (ER Only) Stat Exams 12/02/24 17:23 Taken BMP [Basic Metabolic Panel] Stat Lab 12/02/24 17:06 Completed CBC w/Auto Diff [Complete Blood Count Auto Diff] Stat Lab 12/02/24 17:06 Completed CRP [C-Reactive Protein] Stat Lab 12/02/24 17:06 Completed D-Dimer Stat Lab 12/02/24 17:06 Completed HIV Combo Stat Lab 12/02/24 17:06 Completed Hepatitis C Ab Qual. W/ RFX Stat Lab 12/02/24 17:06 Completed Rapid PCR Covid and Flu A/B Stat Lab 12/02/24 17:37 Completed Serum [HCG Qualitative, Serum] Stat Lab 12/02/24 17:06 Completed ECG Data Tracing #1: Attestation: I reviewed this ECG and interpreted as documented below: ECG Narrative: Sinus tachycardia with a rate of 129, no QTc prolongation, no evidence of ST elevation/depression or acute ischemia MDM Narrative Medical Decision Narrative: In summary, patient is a 24-year-old female presenting with chest pain for 2 weeks. Differential diagnosis includes but is not limited to, costochondritis, pericarditis, URI, asthma exacerbation, PE, ACS, among others. Low concern for ACS at this time given prolonged symptoms as well as no associated symptoms or risk factors. Patient is tachycardic on arrival, however she has a history of baseline tachycardia that is currently being evaluated by cardiology. Patient has also had a cough over the past 2 weeks. Patient has not been taking ibuprofen or Tylenol for discomfort. Patient has no leg swelling or other increased risk factors for PE. Will evaluate with CBC, CMP, D-dimer, EKG, CXR, bedside cardiac ultrasound, respiratory swab and treated with Tylenol and ibuprofen. Bedside ultrasound did not demonstrate pericardial effusion or evidence of wall motion abnormalities in the parasternal long and parasternal short views. Labs significant for leukocytosis of 14.3, slight anemia with hemoglobin of 11.4, no thrombocytopenia. Patient D-dimer elevated at 0.55, CT PE added to her evaluation. BMP nonactionable. CRP elevated at 79.9. negative. COVID/influenza negative. CT personally reviewed by me and significant for mediastinal mass, clear lung viveros and no pulmonary emboli. See final radiologic report for full detail. Findings of CT scan discussed with patient at bedside. We discussed possibility of malignancy that would require further investigation. It is likely that this mass is what is causing the patient's sternal pain. We discussed transfer to an outside hospital for higher level of care with specialists, to which the patient was in agreement with. is on divert. [facility] was contacted and I discussed patient's case with Dr. Murrell (Oncology) who agreed that patient would warrant inpatient workup with biopsy performed by CT surgery. After discussing with [facility] transfer center, they do not accept ED to ED transfers and have a lengthy wait list for an inpatient bed at this time. Attempted transfer to and discussed patient with CT surgeon Dr. Walls who did not feel the patient warranted transfer and that this could be worked up as an outpatient. I informed patient of failed attempts at transfer. She has no emergent risk to her airway or ability to tolerate oral intake. We discussed follow-up with Dr. Echevarria for further evaluation. Patient agreement with this plan. Patient prescribed Robaxin, Tylenol and ibuprofen for pain control. Patient given return precautions and discharged in stable condition. Rocio Riley MD
[2024-12-02 17:40] LABS: Blood Urea Nitrogen 11 mg/dl (7-17); Calcium 8.8 mg/dl (8.4-10.2); Carbon Dioxide 22 mmol/L (22.0-30.0); Chloride 103 mmol/L (98-107); Creatinine Clearance Estimated 273 mL/min (50-200); Estimated Glomerular Filt Rate 152 ml/min (>60); GFR (African American) 183 ML/MIN (>60); Glucose 96 mg/dl (74-100); Sodium 137 mmol/L (136-145)
[2024-12-02 17:42] LABS: Coronavirus 19, PCR Not Detected (NotDetected); Influenza A, PCR Not Detected (NotDetected); Influenza B, PCR Not Detected (NotDetected)
[2024-12-02 17:45] LABS: C-Reactive Protein 79.9 mg/L (0-4); D-Dimer 0.55 ug/mL (0.0-0.5)
[2024-12-02 17:56] LABS: HCG Qualitative, Serum Negative (Negative)
--- NOTE | 2024-12-02 18:26 | CT_ITS ---
PROCEDURE INFORMATION: Exam: CTA Chest With Contrast Exam date and time: 12/02/2024 6:37 PM Age: 24 years old Clinical indication: Other: Tachycardia, cp, SOA, elevated d-dimer TECHNIQUE: Imaging protocol: Computed tomographic angiography of the chest with contrast. Exam focused on the arteries. 3D rendering (Not supervised by radiologist): MIP and/or 3D reconstructed images were created by the technologist. Radiation optimization: All CT scans at this facility use at least one of these dose optimization techniques: automated exposure control; mA and/or kV adjustment per patient size (includes targeted exams where dose is matched to clinical indication); or iterative reconstruction. Contrast material: ISOVUE 370; Contrast volume: 70 ml; Contrast route: INTRAVENOUS (IV); COMPARISON: CR XR CHEST PORTABLE 12/02/2024 5:58 PM FINDINGS: Pulmonary arteries: Normal. No pulmonary emboli. Aorta: Unremarkable. No aortic aneurysm. No aortic dissection. Lungs: Unremarkable. No consolidation. No masses. Pleural spaces: Unremarkable. No pneumothorax. No pleural effusion. Heart: Unremarkable. No cardiomegaly. No pericardial effusion. Esophagus: Midportion of the esophagus obscured by subcarinal mass lesion. Primary esophageal mass not excluded. No esophageal distension or obstruction evident. Lymph nodes: 5.4 cm subcarinal mediastinal mass favored to represent lymphadenopathy. Moderately prominent right hilar, right paratracheal and prevascular mediastinal lymph nodes. Bones/joints: Unremarkable. No acute fracture. Soft tissues: Unremarkable. IMPRESSION: Diffuse mediastinal and mild right hilar lymphadenopathy including 5.4 cm substernal mass. The appearance is most concerning for malignancy with lymphoma, thymic neoplasm and esophageal neoplasm in the differential diagnosis. Infectious etiology would be of consideration but considered less likely given lack of pulmonary infiltrates.
--- NOTE | 2024-12-02 18:28 | PC.NURSE ---
rounded on pt no needs at this time, i hooked pt back of vital machine
--- NOTE | 2024-12-02 18:32 | PC.NURSE ---
pt going to ct via wheelchair
[2024-12-02] MEDS: SODIUM CHLORIDE 0.9% 10ML SYR (RAD ONLY) 10 ML IV (18:36)
[2024-12-02] MEDS: 0.9 % SODIUM CHLORIDE 50 ML VIAL IV (18:36)
[2024-12-02] MEDS: IOPAMIDOL-370 (76%);100ML BOTTLE 70 ML IV (18:36)
[2024-12-02 18:40] LABS: HIV Combo NEGATIVE (Negative)
[2024-12-02 18:48] LABS: Hepatitis C Ab Qual. W/ RFX NEGATIVE (Negative)
--- NOTE | 2024-12-02 20:02 | PC.NURSE ---
I called both [facility] and [facility] regarding transfer. Both stated they are on diversion at this time. Attempting UC.
--- NOTE | 2024-12-02 20:19 | PC.NURSE ---
Contacted transfer center. Provided the patient's demographic and history of present illness. Stated they have paged thoracic surgery and will return the call as soon as they get the provider on the line.
== END 2024-12-02 21:02 | disposition home or self-care (01) ==
PROVIDERS: Emergency Provider Student in an Organized Health Care Education/Training Program; PCP Nurse Practitioner Family
DX: J98.59 Other diseases of mediastinum, not elsewhere classified (principal); R07.9 Chest pain, unspecified; R05.9 Cough, unspecified; F17.210 Nicotine dependence, cigarettes, uncomplicated
CPT/HCPCS: 71045; 71275; 80048; 84703; 85025; 85378; 86140; 86803; 87389; 87636; 93005; 99285; Q9967

== ENCOUNTER 2024-12-15 11:18 | Day surgery (SDC) | payer OTHER, SELFPAY ==
[2024-12-14 13:23] VITALS: BMI 36.6
[2024-12-14 14:16] VITALS: BMI 36.6
[2024-12-15] VITALS (11 sets, daily range): BP systolic 97–131; BP diastolic 58–87; PULSE 78–120; RESP 16–18; TEMP 36.4–38; O2SAT 97–100
[2024-12-15 11:38] LABS: Urine Pregnancy, HCG Qual. Negative (Negative)
[2024-12-15] MEDS: LACTATED RINGERS 1000ML 1,000 ML 25 ML IV (11:55)
--- NOTE | 2024-12-15 12:05 | P.PNANES_ITS ---
[facility] Disclaimer: The information contained in this section may have been updated after the patient was seen, as this information can be updated by other users. Medical History Asthma Tachycardia Anxiety Irregular menses Chest pain Surgical History History of shoulder surgery History of elbow surgery Family History Other No significant family history Social History (Updated 12/15/24 @ 11:34 by Ileana Harvey RN) Smoking Status: Current every day smoker tobacco type: cigarettes packs per day: 1 alcohol intake: current alcohol intake frequency: other substance use type: denies use current occupational status: employed Travel in the last 8 weeks: None household members: family housing: house Have you lived/traveled outside US in past 30 days?: No Contact w/someone who lives/traveled outside US past 30 days?: No Exposure to someone with infectious disease in past 14 days?: No Do you have a fever (greater than 100.4 F or 38 C)?: No Have you tested positive for COVID-19: No Exposed to someone with COVID-19 in past 14 days?: No Do you have a sore throat?: No Do you have a cough?: No Do you have any weakness?: No Are you experiencing any nausea/vomitting?: No Do you have any diarrhea?: No Are you experiencing any unusual bleeding?: No Do you have any muscle aches/pain?: No Do you have any abdominal pain?: No Are you experiencing loss of taste or smell?: No [facility] Anesthesia Checklist Patient Identification Patient Identification: Arm Band Structural Data Admitted From: Home Planned Operative Procedure/s: Bronchoscopy with Biopsy + EBUS Consent for Planned Operative Procedure(s) Verified: Yes Verified Documents: Surgical Consent and History and Physical NPO Status Verified Time NPO: 00:00 Additional verifications Anesthesia Reactions: No Hx Blood Transfusions: No Blood Transfusion Reaction: No Airway Assessment Mallampati Score:: Class II C-Spine Mobility Assessed: Yes TMJ Mobility Assessed: Yes Dentition: Good Dentition Neurological Assessment Level of Consciousness: Awake, Alert and Appropriate Anesthesia Plan Anesthesia Risk discussed: Yes Anesthesia Plan: Verified ASA Class: II Anesthesia Type: General
[2024-12-15 13:03] LABS: POC Glucose,Bedside 112 (70-110)
--- NOTE | 2024-12-15 13:37 | P.PNANES_ITS ---
[facility] Anesthesia Record Part I Anesthesia Record I Intake, IV Amount: 1,000 Hydration: Adequate Estimated blood loss (mL): 0 Urine output (mL): 0 Blood Products used (#): none Blood Pressure: 97/58 SaO2: 100 Pulse Rate: 120 Airway Patency: Patent Respiratory Rate: 16 Temperature: 98 F Patient is:: Drowsy and Stable Stable to PACU at:: 13:35
--- NOTE | 2024-12-15 13:41 | XR_ITS ---
FINAL REPORT CLINICAL HISTORY: post bronch COMPARISON: 12/02/2024 FINDINGS: A single frontal view of the chest was obtained. No acute pulmonary opacity is present. There is no evidence of effusion or pneumothorax. Mediastinum is unremarkable. Heart size is normal. IMPRESSION: No acute abnormality. Reviewed, Interpreted and Dictated by Asa Burton MD Transcribed by Reyna Hernandez Authenticated and [facility]
--- NOTE | 2024-12-15 14:45 | P.PNANES_ITS ---
[facility] Anesthesia Record Part I Anesthesia Record I Intake, IV Amount: 500 Hydration: Adequate Estimated blood loss (mL): 0 Urine output (mL): 0 Blood Products used (#): none Blood Pressure: 140/75 SaO2: 90 Pulse Rate: 90 Airway Patency: Patent Respiratory Rate: 16 Temperature: 98.2 F Patient is:: Drowsy and Mask O2 Stable to PACU at:: 14:30
--- NOTE | 2024-12-15 15:04 | EXP.BRONCH.N ---
Procedure: Date: 12/15/24 Patient Date of :: 2000 Procedure Performed:: Bronchoscopy airway examination, endobronchial ultrasound-guided fine-needle aspiration of lymph node Indications:: Mediastinal and hilar lymphadenopathy Performing Provider:: Keyonna Gómez MD Referring Provider:: Dr. Echevarria Sedation:: General anesthesia Procedure:: Bronchoscopy airway examination, endobronchial ultrasound-guided fine-needle aspiration of lymph node; A clean EBUS bronchoscopy was advanced to each 51 lymph node surveillance was performed. Patient noted to have lymphadenopathy at station 4R and station 7 and station 10R. Endobronchial ultrasound fine-needle aspirate performed at the above-mentioned 3 lymph node stations and the lymph node sample were sent in [employer] for cytopathologic examination. Lymph node samples were also sent in [facility] flow flow cytometry. EBUS bronchoscopy was retracted and a clean DIAGNOSTIC bronchoscopy was advanced through the ET tube and airways were examined up to subsegmental bronchi. Airways appeared grossly normal, no evidence of mucoid secretions, mucous plugging active bleeding/old blood clots noted. Patient tolerated the procedure with no immediate acute complications. We will follow the patient in pulmonary clinic in 7 to 10 days. Findings:: Please see the procedure note Recommendations:: Postoperative bronchoscopy instructions Follow in pulmonary clinic 1 week Complications:: No acute immediate complications Estimated blood obtained (mL): 5
--- NOTE | 2024-12-15 15:41 | P.PNANES_ITS ---
[facility] Anesthesia Record Part II Anesthesia Record Part II Discharge Time: 14:05 Destination: Surgical Day Care (OP Surgery) PACU nurse assessment reviewed?: Yes Patient Condition:: Good Anesthesia Complications:: None Swallowing reflex intact?: Yes Airway Patency: Patent Cyanosis?: No Blood Pressure: 120/78 SaO2: 100 Respiratory Rate: 16 Pulse Rate: 95 Temperature: 97.6 F Mental Status: Alert & Oriented Pain level:: 0 Nausea and/or vomitting:: None Intake, IV Amount: 0 Hydration: Adequate
== END 2024-12-15 14:50 | disposition home or self-care (01) ==
PROVIDERS: PCP Nurse Practitioner Family; Visit Provider Internal Medicine Pulmonary Disease
PROC: BB4BZZZ Ultrasonography of Pleura (ICD-10-PCS; CPT 31653; principal; 2024-12-15 12:30)
DX: J45.30 Mild persistent asthma, uncomplicated (principal); R59.0 Localized enlarged lymph nodes; F17.210 Nicotine dependence, cigarettes, uncomplicated; Z79.51 Long term (current) use of inhaled steroids; Z79.899 Other long term (current) drug therapy; Z88.3 Allergy status to other anti-infective agents; Z88.8 Allergy status to other drugs, medicaments and biological substances
CPT/HCPCS: 31653; 71045; 81025; 82962; J3490; J2250; J2405; J3010; J7120

== ENCOUNTER 2024-12-22 15:01 | Outpatient (CLI) | payer OTHER, SELFPAY ==
[2024-12-22 21:10] LABS: C-Reactive Protein 4.1 mg/L (0-4)
[2024-12-25 19:11] LABS: Angiotensin Converting Enzyme 56 U/L (14-82)
[2024-12-26 13:28] LABS: QuantiFERON-TB Gold Plus Negative (Negative)
[2024-12-26 14:19] LABS: Anti-Centromere B Antibodies 6.3 AI (0.0-0.9); Anti-DNA (DS) Ab Qn 1 IU/mL (0-9); Anti-Jo-1 <0.2 AI (0.0-0.9); Antichromatin Antibodies 0.2 AI (0.0-0.9); Antinuclear Antibodies (ANA) Positive (Negative); Antiscleroderma-70 Antibodies <0.2 AI (0.0-0.9); RNP Antibodies <0.2 AI (0.0-0.9); Sjogren's Anti-SS-A <0.2 AI (0.0-0.9); Sjogren's Anti-SS-B <0.2 AI (0.0-0.9)
[2024-12-27 16:14] LABS: Aspergillus flavus Negative (Neg:<1:1); Aspergillus fumigatus Negative (Neg:<1:1); Aspergillus niger Negative (Neg:<1:1); Blastomyces Antibody Negative (Neg:<1:1); Histoplasma Antibody Quant Negative (Neg:<1:1)
== END 2024-12-22 23:59 | disposition home or self-care (01) ==
LOC: LAB 15:02
PROVIDERS: PCP Nurse Practitioner Family; Visit Provider Internal Medicine Pulmonary Disease
DX: J84.10 Pulmonary fibrosis, unspecified (principal); R06.02 Shortness of breath; J84.9 Interstitial pulmonary disease, unspecified; R59.0 Localized enlarged lymph nodes; R91.1 Solitary pulmonary nodule
CPT/HCPCS: 36415; 82164; 86038; 86140; 86225; 86235; 86480; 86606; 86612; 86698

== ENCOUNTER 2025-01-03 13:14 | Emergency (ER) | payer OTHER, SELFPAY ==
[2025-01-03] VITALS (7 sets, daily range): BP systolic 95–132; BP diastolic 65–81; PULSE 77–89; RESP 18–22; TEMP 36.8; O2SAT 98–100; BMI 37.9
--- NOTE | 2025-01-03 13:17 | ECG_ITS ---
APPROVED REPORT Exam: Resting ECG HR:79 bpm ECG Measurements Heart Rate 79 AXES MS 145 P 41 QRSd 101 QRS 80 QT 374 T 48 QTc 409 Conclusion SINUS RHYTHM WITH SINUS ARRHYTHMIA NORMAL ECG UNCONFIRMED REPORT Normal sinus rhythm. No ST elevation or depression Electronically signed by : MICHELINE MONREAL, 01/03/2025 16:30:05
--- NOTE | 2025-01-03 13:17 | HMH.EDGENADL ---
Discharge Plan Disposition Patient Disposition: Home, Self-Care Condition: Good Prescriptions Prescriptions: No Action albuterol sulfate 90 mcg/actuation HFA aerosol inhaler 2 inh IH Q6HP PRN (Reason: Shortness Of Breath) 30 Days Qty: 8.5 5RF (DME) blood pressure monitor Kit See Rx Instructions .ROUTE .MEDSUPPLY Qty: 1 0RF Rx Instructions: As directed ipratropium-albuterol 0.5 mg-3 mg(2.5 mg base)/3 mL solution for nebulization 3 ml inhalation QID PRN (Reason: shortness of breath or wheezing) 90 Days Qty: 270 3RF Anoro Ellipta 62.5-25 mcg/actuation blister with device 1 inh inhalation DAILY 90 Days Qty: 180 2RF acetaminophen [Pain Relief (acetaminophen)] 325 mg tablet 650 mg PO Q6H Qty: 120 0RF ibuprofen 800 mg tablet 800 mg PO Q6H Qty: 90 0RF methocarbamol 500 mg tablet 500 mg PO QID Qty: 120 0RF medroxyprogesterone [Depo-Provera] 150 mg/mL Suspension See Rx Instructions .ROUTE .COMPLEX Rx Instructions: 300 mg intramuscularly Referrals Follow up/Referrals: Dontae Mann APRN [Primary Care Provider] - See instructions Activity Restrictions/Add. Instructions Additional Instructions/Restrictions: As we discussed I absolutely recommend a balanced diet and taking nutrition and in the morning along with your coffee before you start work. If you have continued symptoms follow-up with your PCP and for any new or worsening signs or symptoms follow-up sooner or return to the ER as needed. Clinical Impressions Clinical Impression: Near syncope, Hypoglycemia Print Language Print Language: Lithuanian Discharge ED Provider: Ck Campbell General Adult HPI <JOHN Justice - Last Filed: 01/03/25 20:35> General Chief complaint: Chest Pain Stated complaint: CP Time Seen by Provider: 01/03/25 13:17 History of Present Illness HPI narrative: Patient presents for evaluation of near syncope. Patient states that she was at work today and around 930 she began feeling lightheaded felt jittery and felt like her heart was pounding so hard it hurt. Symptoms lasted for approximately an hour and then went away. Patient does not have a cardiovascular history but has been recently worked up for mediastinal lymphadenopathy and is scheduled to undergo biopsy by CT surgery with [facility] on January 19. 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 On arrival here patient's blood sugar was in the 60s. She reports that she no longer has the lightheadedness shakes tremors and her chest pain is gone. She denies shortness of breath fever chills hemoptysis hematochezia melena nausea vomiting diarrhea. Related Data Home Medications ?Medication ?Instructions ?Recorded ?Confirmed medroxyprogesterone 150 mg/mL See Rx Instructions .Route .COMPLEX 12/14/24 01/02/25 intramuscular suspension (Depo-Provera) Previous Rx's ?Medication ?Instructions ?Recorded albuterol sulfate 90 mcg/actuation 2 inh inhalation Q6HP PRN 05/07/23 aerosol inhaler Shortness Of Breath 30 days #8.5 grams blood pressure monitor #1 ea 12/21/23 acetaminophen 325 mg tablet (Pain 650 mg (2 x 325 mg) PO Q6H #120 12/02/24 Relief (acetaminophen)) tabs ibuprofen 800 mg tablet 800 mg PO Q6H #90 tabs 12/02/24 methocarbamol 500 mg tablet 500 mg PO QID #120 tabs 12/02/24 ipratropium 0.5 mg-albuterol 3 mg 3 ml inhalation QID PRN shortness 12/15/24 (2.5 mg base)/3 mL nebulization of breath or wheezing 90 days #270 soln mL umeclidinium 62.5 mcg-vilanterol 1 inh inhalation DAILY 90 days 12/15/24 25 mcg/actuation powdr for #180 ea inhalation (Anoro Ellipta) Allergies Allergy/AdvReac Type Severity Reaction Status Date / Time tomato (From TOMATOES Allergy Unknown UTI Verified 01/02/25 10:12 (FOOD/DRUG)) azithromycin Allergy seizure Verified 01/02/25 10:12 activity dexamethasone Allergy abnormal Verified 01/02/25 10:12 breathing pattern and syncope venom-wasp Allergy Anaphylaxis Verified 01/02/25 10:12 Bumble Bee Allergy Unknown Anaphylaxis Uncoded 01/02/25 10:12 From TOMATOES (FOOD/DRUG) Allergy Unknown UTI Uncoded 01/02/25 10:12 [facility] <JOHN Justice - Last Filed: 01/03/25 20:35> [facility] Disclaimer: The information contained in this section may have been updated after the patient was seen, as this information can be updated by other users. Medical History Dyspnea on exertion Mediastinal lymphadenopathy Hilar lymphadenopathy Asthma Tachycardia Anxiety Irregular menses Chest pain Surgical History History of shoulder surgery History of elbow surgery Family History Other No significant family history Social History Smoking Status: Current every day smoker tobacco type: cigarettes packs per day: 1 alcohol intake: current alcohol intake frequency: other substance use type: denies use current occupational status: employed Travel in the last 8 weeks: None household members: family housing: house Have you lived/traveled outside US in past 30 days?: No Contact w/someone who lives/traveled outside US past 30 days?: No Exposure to someone with infectious disease in past 14 days?: No Do you have a fever (greater than 100.4 F or 38 C)?: No Have you tested positive for COVID-19: No Exposed to someone with COVID-19 in past 14 days?: No Do you have a sore throat?: No Do you have a cough?: No Do you have any weakness?: No Do you have any diarrhea?: No Are you experiencing any unusual bleeding?: No Do you have any muscle aches/pain?: No Do you have any abdominal pain?: No Are you experiencing loss of taste or smell?: No Other Medical History Have you received the Flu Vaccine for this season: No Have you received the Pneumonia Vaccine: Yes <JOHN Justice - Last Filed: 01/03/25 20:35> ROS Obtained: Yes Systems reviewed as appropriate & no additional complaints except as documented Physical Exam <JOHN Justice - Last Filed: 01/03/25 20:35> General General appearance: alert and in no apparent distress Respiratory Respiratory exam: Present normal lung sounds bilaterally Cardiovascular Cardiovascular exam: Present regular rate Neurological Exam Neurological exam: Present alert and oriented X3 Medical Decision Making <JOHN Justice - Last Filed: 01/03/25 20:35> Medical Records Medical records reviewed: Yes I reviewed the patient's medical records. Screening: Per USPSTF and CDC recommendations, given the prevalence of disease in our region, it is our hospital?s policy to screen for HIV and viral Hepatitis for all patients aged 18 and over and those with ongoing risk factors. Сергей Inquiry Pt receiving controlled substance: No Vital Signs: 01/03/25 13:20 01/03/25 13:31 01/03/25 13:32 Temperature 98.2 F Temperature Source Oral Pulse Rate 82 78 Pulse Rate [Left Radial] 77 Respiratory Rate 20 18 Blood Pressure 124/75 Blood Pressure [Right Arm] 132/77 Blood Pressure Mean [Right Arm] 95 02 Sat by Pulse Oximetry 100 100 Oxygen Delivery Method Room Air Room Air 01/03/25 14:01 01/03/25 14:30 01/03/25 15:00 Temperature Temperature Source Pulse Rate 79 89 86 Pulse Rate [Left Radial] Respiratory Rate 22 22 22 Blood Pressure 107/65 L 95/66 L 112/81 Blood Pressure [Right Arm] Blood Pressure Mean [Right Arm] 02 Sat by Pulse Oximetry 99 100 100 Oxygen Delivery Method Room Air Room Air 01/03/25 15:24 Temperature 98.2 F Temperature Source Pulse Rate 84 Pulse Rate [Left Radial] Respiratory Rate 20 Blood Pressure 112/81 Blood Pressure [Right Arm] Blood Pressure Mean [Right Arm] 02 Sat by Pulse Oximetry Oxygen Delivery Method Room Air Lab Data Lab results reviewed: Yes I reviewed the patient's lab results. Lab Results 01/03/25 13:20: WBC 7.3, RBC 5.09, Hgb 12.5, Hct 39.6, MCV 77.8 L, MCH 24.6 L, MCHC 31.6 L, RDW 14.2, Plt Count 272, MPV 11.3 H, Neut % (Auto) 56.9, Lymph % (Auto) 30.8, Hoke % (Auto) 8.9, Eos % (Auto) 2.3, Baso % (Auto) 0.8, Neut # (Auto) 4.1, Lymph # (Auto) 2.2, Hoke # (Auto) 0.7, Eos # (Auto) 0.2, Baso # (Auto) 0.1, PT 11.1, INR 0.99, Sodium 139, Potassium 4.0, Chloride 107, Carbon Dioxide 24, Anion Gap 12.0, BUN 15, Creatinine 0.80, Estimated Creat Clear 182, Estimated GFR 88, Est GFR ( Amer) 107, Glucose 88, Hemoglobin A1c 5.2, Calcium 9.2, Magnesium 2.0, Total Bilirubin 0.4, AST 34, ALT 22, Alkaline Phosphatase 93, Troponin I < 0.01, Total Protein 7.3, Albumin 4.7, Globulin 2.6, Albumin/Globulin Ratio 1.8, Serum HCG, Qual Negative 01/03/25 13:46: SARS-CoV-2 (PCR) Not detected, Influenza A Untype (PCR) Not detected, Influenza Type B (PCR) Not detected 01/03/25 13:20 01/03/25 13:20 Orders (Tests/Meds): ED MEDICATIONS Discontinued Medications Generic Name Dose Route Start Last Admin Trade Name Freq PRN Reason Stop Dose Admin Acetaminophen 1,000 mg 01/03/25 13:43 01/03/25 13:56 Acetaminophen 500mg Tab PO 01/03/25 13:44 1,000 mg ONCE ONE Administration Iopamidol 80 ml 01/03/25 14:48 01/03/25 14:49 Iopamidol-370 (76%);100ml Bottle IV 01/03/25 14:49 80 ml ONCE ONE Administration Sodium Chloride 10 ml 01/03/25 14:48 01/03/25 14:49 Sodium Chloride 0.9% 10ml Syr (Rad Only) IV 01/03/25 14:49 10 ml ONCE ONE Administration Sodium Chloride 50 ml 01/03/25 14:48 01/03/25 14:49 0.9 % Sodium Chloride 50 Ml Vial IV 01/03/25 14:49 50 ml ONCE ONE Administration ORDERS Category Date Time Status CT angio chest - dissection Stat Cat Scan 01/03/25 13:43 Completed CBC w/Auto Diff [Complete Blood Count Auto Diff] Stat Lab 01/03/25 13:20 Completed CMP [Comprehensive Metabolic Panel] Stat Lab 01/03/25 13:20 Completed HCG Qualitative, Serum Stat Lab 01/03/25 13:20 Completed Hemoglobin A1C Stat Lab 01/03/25 13:20 Completed INR [Prothrombin Time INR] Stat Lab 01/03/25 13:20 Completed Magnesium Stat Lab 01/03/25 13:20 Completed Rapid PCR Covid and Flu A/B Stat Lab 01/03/25 13:46 Completed Trop I [Troponin I] Stat Lab 01/03/25 13:20 Completed HEART Score History (anamnesis): Slightly suspicious ECG: Normal Age: <45 years Risk factors: 1-2 risk factors Troponin: </= normal limit HEART Score: 1 Medical Decision Narrative: In summary patient is a 24-year-old female who presents to the emergency department for evaluation of near syncope. Patient is hemodynamically stable upon arrival, afebrile. Physical exam is remarkable for clear breath sounds with no increased work of breathing or adventitious sounds or accessory muscle use, no palpable chest pain on palpation, no abdominal tenderness, [place] Coma Score is 15 patient is awake alert and oriented person place and circumstance cranial nerves II through XII intact grossly to exam. Differential diagnosis includes vasovagal syncope versus hypoglycemia versus possible diminished cardiac return due to the mass in her chest versus ACS etc. Initial workup will be conducted with hematologic labs CTA dissection protocol. Initial interventions include: None for now. Initial workup reviewed by me and patient's hematologic labs are significant for normal white count normal H&H with no neutrophilic shift normal INR 0.99 and the remainder of her hematologic labs are nonactionable including an undetectable troponin of less than 0.01 negative hCG negative COVID and flu and her serum blood sugar is 88 after ministration of apple juice and my informal interpretation of her CT imaging shows no evidence of thrombus or acute intrathoracic abnormality and my informal assessment shows that the mediastinal mass is significantly smaller than previous and I do not see any mass effect on her great vessels.. Upon repeat evaluation patient has had no symptoms feels back to her baseline. Given this patient is appropriate for discharge with recommendations to not go long time without nutrition and just coffee. Patient to follow-up with PCP within 48 hours patient to keep her appointment with Dr. Edith Morejon as well as CT surgery at [facility]. <Ck Campbell MD - Last Filed: 01/03/25 21:14> Vital Signs: 01/03/25 13:20 01/03/25 13:31 01/03/25 13:32 Temperature 98.2 F Temperature Source Oral Pulse Rate 82 78 Pulse Rate [Left Radial] 77 Respiratory Rate 20 18 Blood Pressure 124/75 Blood Pressure [Right Arm] 132/77 Blood Pressure Mean [Right Arm] 95 02 Sat by Pulse Oximetry 100 100 Oxygen Delivery Method Room Air Room Air 01/03/25 14:01 01/03/25 14:30 01/03/25 15:00 Temperature Temperature Source Pulse Rate 79 89 86 Pulse Rate [Left Radial] Respiratory Rate 22 22 22 Blood Pressure 107/65 L 95/66 L 112/81 Blood Pressure [Right Arm] Blood Pressure Mean [Right Arm] 02 Sat by Pulse Oximetry 99 100 100 Oxygen Delivery Method Room Air Room Air 01/03/25 15:24 Temperature 98.2 F Temperature Source Pulse Rate 84 Pulse Rate [Left Radial] Respiratory Rate 20 Blood Pressure 112/81 Blood Pressure [Right Arm] Blood Pressure Mean [Right Arm] 02 Sat by Pulse Oximetry Oxygen Delivery Method Room Air Lab Data Lab Results 01/03/25 13:20: WBC 7.3, RBC 5.09, Hgb 12.5, Hct 39.6, MCV 77.8 L, MCH 24.6 L, MCHC 31.6 L, RDW 14.2, Plt Count 272, MPV 11.3 H, Neut % (Auto) 56.9, Lymph % (Auto) 30.8, Hoke % (Auto) 8.9, Eos % (Auto) 2.3, Baso % (Auto) 0.8, Neut # (Auto) 4.1, Lymph # (Auto) 2.2, Hoke # (Auto) 0.7, Eos # (Auto) 0.2, Baso # (Auto) 0.1, PT 11.1, INR 0.99, Sodium 139, Potassium 4.0, Chloride 107, Carbon Dioxide 24, Anion Gap 12.0, BUN 15, Creatinine 0.80, Estimated Creat Clear 182, Estimated GFR 88, Est GFR ( Amer) 107, Glucose 88, Hemoglobin A1c 5.2, Calcium 9.2, Magnesium 2.0, Total Bilirubin 0.4, AST 34, ALT 22, Alkaline Phosphatase 93, Troponin I < 0.01, Total Protein 7.3, Albumin 4.7, Globulin 2.6, Albumin/Globulin Ratio 1.8, Serum HCG, Qual Negative 01/03/25 13:46: SARS-CoV-2 (PCR) Not detected, Influenza A Untype (PCR) Not detected, Influenza Type B (PCR) Not detected Orders (Tests/Meds): ED MEDICATIONS Discontinued Medications Generic Name Dose Route Start Last Admin Trade Name Franki PRN Reason Stop Dose Admin Acetaminophen 1,000 mg 01/03/25 13:43 01/03/25 13:56 Acetaminophen 500mg Tab PO 01/03/25 13:44 1,000 mg ONCE ONE Administration Iopamidol 80 ml 01/03/25 14:48 01/03/25 14:49 Iopamidol-370 (76%);100ml Bottle IV 01/03/25 14:49 80 ml ONCE ONE Administration Sodium Chloride 10 ml 01/03/25 14:48 01/03/25 14:49 Sodium Chloride 0.9% 10ml Syr (Rad Only) IV 01/03/25 14:49 10 ml ONCE ONE Administration Sodium Chloride 50 ml 01/03/25 14:48 01/03/25 14:49 0.9 % Sodium Chloride 50 Ml Vial IV 01/03/25 14:49 50 ml ONCE ONE Administration ORDERS Category Date Time Status CT angio chest - dissection Stat Cat Scan 01/03/25 13:43 Completed CBC w/Auto Diff [Complete Blood Count Auto Diff] Stat Lab 01/03/25 13:20 Completed CMP [Comprehensive Metabolic Panel] Stat Lab 01/03/25 13:20 Completed HCG Qualitative, Serum Stat Lab 01/03/25 13:20 Completed Hemoglobin A1C Stat Lab 01/03/25 13:20 Completed INR [Prothrombin Time INR] Stat Lab 01/03/25 13:20 Completed Magnesium Stat Lab 01/03/25 13:20 Completed Rapid PCR Covid and Flu A/B Stat Lab 01/03/25 13:46 Completed Trop I [Troponin I] Stat Lab 01/03/25 13:20 Completed HEART Score HEART Score: 1 Medical Decision Narrative: In summary patient is a 24-year-old female who presents to the emergency department for evaluation of near syncope. Patient is hemodynamically stable upon arrival, afebrile. Physical exam is remarkable for clear breath sounds with no increased work of breathing or adventitious sounds or accessory muscle use, no palpable chest pain on palpation, no abdominal tenderness, [place] Coma Score is 15 patient is awake alert and oriented person place and circumstance cranial nerves II through XII intact grossly to exam. Differential diagnosis includes vasovagal syncope versus hypoglycemia versus possible diminished cardiac return due to the mass in her chest versus ACS etc. Initial workup will be conducted with hematologic labs CTA dissection protocol. Initial interventions include: None for now. Initial workup reviewed by me and patient's hematologic labs are significant for normal white count normal H&H with no neutrophilic shift normal INR 0.99 and the remainder of her hematologic labs are nonactionable including an undetectable troponin of less than 0.01 negative hCG negative COVID and flu and her serum blood sugar is 88 after ministration of apple juice and my informal interpretation of her CT imaging shows no evidence of thrombus or acute intrathoracic abnormality and my informal assessment shows that the mediastinal mass is significantly smaller than previous and I do not see any mass effect on her great vessels.. Upon repeat evaluation patient has had no symptoms feels back to her baseline. Given this patient is appropriate for discharge with recommendations to not go long time without nutrition and just coffee. Patient to follow-up with PCP within 48 hours patient to keep her appointment with Dr. Edith Morejon as well as CT surgery at [facility]. I was consulted by the HERBERT, and we discussed the complexity of the problems being addressed. I approve the treatment and management plan for this patient's care in the emergency department, thus performing a substantive portion of the medical decision making. Ck Campbell MD Critical Care <JOHN Justice - Last Filed: 01/03/25 20:35> Critical Care Time Critical Care Time: No
--- NOTE | 2025-01-03 13:21 | PC.NURSE ---
FSBS is 67 @5600.
--- NOTE | 2025-01-03 13:43 | CT_ITS ---
FINAL REPORT TECHNIQUE: Postcontrast axial images of the chest were performed in a CTA protocol. This study was performed with techniques to keep radiation doses as low as reasonably achievable, (ALARA). Individualized dose reduction technique using automated exposure control or adjustment of mA and/or kV according to the patient's size were employed. CLINICAL HISTORY: Near syncope, mediastinal mass COMPARISON: 12/02/2024 FINDINGS: The heart is normal in size. There is abnormal soft tissue in the anterior mediastinum measuring approximately 3 cm, similar to prior exam. This is likely thymic tissue. There has been resolved precarinal adenopathy from the prior exam. A subcarinal mass measuring 37 x 21 mm is again seen which previously measured 51 x 35 mm. There is no axillary adenopathy. No pleural or pericardial effusion is identified. The thoracic aorta is normal in caliber with no focal aneurysm or dissection identified. There is no filling defect to suggest pulmonary embolism. No lung infiltrate or mass is identified. The images of the upper abdomen demonstrate mild fatty infiltration of the liver. IMPRESSION: No evidence for PE on this exam. No acute lung disease. Improving mediastinal adenopathy presumably related to treatment response. Reviewed, Interpreted and Dictated by Asa Burton MD Transcribed by Jenn Hammer Authenticated and [facility]
[2025-01-03 13:55] LABS: Basophils # 0.1 K/mm3 (0-0.2); Basophils % 0.8 % (0.1-2.0); Eosinophils # 0.2 K/mm3 (0.0-0.4); Eosinophils % 2.3 % (0.1-12.0); Hematocrit 39.6 % (37.0-47.0); Hemoglobin 12.5 g/dL (12.2-16.2); Lymphocytes # 2.2 K/mm3 (0.7-4.5); Lymphocytes % 30.8 % (10-50); Mean Corpuscular HGB Conc 31.6 g/dL (31.8-35.4); Mean Corpuscular Hemoglobin 24.6 pg (27.0-31.2); Mean Corpuscular Volume 77.8 fl (81-99); Mean Platelet Volume 11.3 fl (7.4-10.4); Monocytes # 0.7 K/mm3 (0.1-1.0); Monocytes % 8.9 % (1.7-9.3); Neutrophils # 4.1 K/mm3 (1.8-7.8); Neutrophils % 56.9 % (37.0-80.0); Platelet Count 272 K/mm3 (142-424); Red Blood Count 5.09 M/mm3 (4.20-5.40); Red Cell Distribution Width 14.2 % (11.5-17.5); White Blood Count 7.3 K/mm3 (4.8-10.8)
[2025-01-03] MEDS: ACETAMINOPHEN 500MG TAB 1000 MG PO (13:56)
[2025-01-03 14:01] LABS: Coronavirus 19, PCR Not Detected (NotDetected); Influenza A, PCR Not Detected (NotDetected); Influenza B, PCR Not Detected (NotDetected)
[2025-01-03 14:09] LABS: INR 0.99 (0.9-1.1); Prothrombin Time 11.1 seconds (10.1-12.5)
[2025-01-03 14:11] LABS: HCG Qualitative, Serum Negative (Negative)
[2025-01-03 14:14] LABS: Albumin Level 4.7 g/dl (3.5-5.0); Chloride 107 mmol/L (98-107); Sodium 139 mmol/L (136-145)
[2025-01-03 14:17] LABS: Alanine Aminotransferase 22 U/L (12-78); Albumin/Globulin Ratio 1.8 (1.1-1.8); Alkaline Phosphatase 93 U/L (38-126); Aspartate Amino Transferase 34 U/L (14-36); Bilirubin,Total 0.4 mg/dl (0.2-1.3); Blood Urea Nitrogen 15 mg/dl (7-17); Calcium 9.2 mg/dl (8.4-10.2); Carbon Dioxide 24 mmol/L (22.0-30.0); Creatinine Clearance Estimated 182 mL/min (50-200); Estimated Glomerular Filt Rate 88 ml/min (>60); GFR (African American) 107 ML/MIN (>60); Globulin 2.6 g/dL (1.3-3.2); Glucose 88 mg/dl (74-100); Total Protein,Serum 7.3 g/dl (6.3-8.2)
[2025-01-03 14:34] LABS: Troponin I < 0.01 ng/ml (0.00-0.034)
--- NOTE | 2025-01-03 14:38 | PC.NURSE ---
PT TO CT
[2025-01-03] MEDS: SODIUM CHLORIDE 0.9% 10ML SYR (RAD ONLY) 10 ML IV (14:49)
[2025-01-03] MEDS: IOPAMIDOL-370 (76%);100ML BOTTLE 80 ML IV (14:49)
[2025-01-03] MEDS: 0.9 % SODIUM CHLORIDE 50 ML VIAL IV (14:49)
[2025-01-03 14:52] LABS: Hemoglobin A1C 5.2 % (4.0-6.0)
== END 2025-01-03 15:27 | disposition home or self-care (01) ==
PROVIDERS: Physician Assistant; Emergency Provider Student in an Organized Health Care Education/Training Program; PCP Nurse Practitioner Family
DX: E16.2 Hypoglycemia, unspecified (principal); R07.9 Chest pain, unspecified; R42 Dizziness and giddiness; R55 Syncope and collapse; F17.210 Nicotine dependence, cigarettes, uncomplicated
CPT/HCPCS: 71275; 80053; 83036; 83735; 84484; 84703; 85025; 85610; 87636; 93005; 99285; Q9967

== ENCOUNTER 2025-05-12 13:50 | Outpatient (CLI) | payer OTHER, SELFPAY ==
--- OUTSIDE RECORDS SUMMARY | 2025-05-09 15:00 | XMS_ITS | Encounter Summary ---
Author Organization [facility] Address [address] [place] [address] Care Team Providers Care Child And Family Therapist Name Role Phone Savanah Delgado Primary Care Provider Reason for Visit * Reason Comments Contraception Here for depo. Encounter Details Date Type Department Care Team (Latest Contact Info) Description 05/09/2025 3:00 PM EDT Clinical Support Obstetrics & Gynecology [address] [place] [phone] Encounter for surveillance of injectable contraceptive [...] things needed for daily living? No 01/22/2025 [employer] Depression Scale Answer Date Recorded [employer] Depression Scale Total 8 12/20/2023 The thought [...] any time in the past 12 m [facility], were you homeless or living in a nursing home (including now)? No 01/22/2025 Utilities Answer [...] EDT Office Visit Obstetrics & Gynecology [address] [place] [address] Ileana Wright MD [address] [place] [address] documented as of this encounter [...] documented as of this encounter Care Teams Child And Family Therapist Relationship Specialty Start Date End Date Savanah Delgado PA [address] [place] [address] PCP - General 05/06/23 documented as of this encounter
[2025-05-12 21:10] LABS: Coronavirus 19, PCR Not Detected (NotDetected); Influenza A, PCR Not Detected (NotDetected); Influenza B, PCR Not Detected (NotDetected)
--- OUTSIDE RECORDS SUMMARY | 2025-05-14 13:53 | XMS_ITS | Encounter Summary ---
Author Organization [facility] Address [address] [place] [address] Care Team Providers Care Bobbin Doffer Name Role Phone Savanah Delgado Primary Care Provider [phone] Encounter Details Date Type Department Care Team (Late st Contact Info) Description 10/21/2023 Orders Only External Location [address] [place] [phone] Provider, External Social History Tobacco Use Types [...] EDT Office Visit Obstetrics & Gynecology [address] [place] [address] Ileana Wright MD [address] [place] [address] documented as of this encounter [...] documented as of this encounter Care Teams Bobbin Doffer Relationship Specialty Start Date End Date Savanah Delgado PA [address] [place] [address] PCP - General 05/06/23 documented as of this encounter
--- OUTSIDE RECORDS SUMMARY | 2025-05-14 13:53 | XMS_ITS | Encounter Summary ---
Author Organization [facility] Address [address] [place] [address] Care Team Providers Care Trade Specialist Name Role Phone Savanah Delgado Primary Care Provider [phone] Encounter Details Date Type Department Care Team (Late Contact Info) Description 04/28/2023 Orders Only External Location [address] [place] [phone] Provider, External Social History Tobacco Use Types [...] EDT Office Visit Obstetrics & Gynecology [address] [place] [address] Ileana Wright MD [address] [place] [address] documented as of this encounter [...] on filedocumented in this encounter Care Teams Trade Specialist Relationship Specialty Start Date End Date Savanah Delgado PA [address] [place] [address] PCP - General 05/06/23 documented as of this encounter
--- OUTSIDE RECORDS SUMMARY | 2025-05-14 13:53 | XMS_ITS | Encounter Summary ---
Author Organization [facility] Address [address] [id number] Care Team Providers Care Technical Internship Name Role Phone Savanah Delgado Primary Care Provider [phone] Encounter Details Date Type Department Care Team (Late st Contact Info) Description 12/25/2024 Lab Requisition [facility] [address] [place] [address] Kemar Reddy MD [address] [facility] [address] [place] [address] Enlarged lymph nodes, unspecified Social History Tobacco [...] Recorded Patient Health Questionnaire-2 Score 0 11/08/2024 [place] Depression Scale Answer Date Recorded [place] Depression Scale Total 8 12/20/2023 The thought [...] Visit Obstetrics & Gynecology [address] [place] [address] Ileana Wright MD [address] [place] [address] documented as of this encounter [...] 10:38 AM EDT) Case Report Cytology Case: [id number] Authorizing Provider: Kemar Reddy MD Collected: 12/25/2024 1038 Ordering Location: [facility] Lab Received: 12/25/2024 1038 Pathologist: Fernanda Downs MD Specimen: Lymph Node, [id number] 12/27/2024 1:48 PM EDT [facility] Final Diagnosis OUTSIDE SLIDES LABELED [id number], COLLECTED 12/15/24: A. LYMPH NODE, STATION 4R, FNA: -NO EVIDENCE OF MALIGNANCY. -LYMPHOID TISSUE. B. LYMPH NODE, STATION 7, FNA: -NO EVIDENCE OF MALIGNANCY. -LYMPHOID TISSUE WITH NECROSIS AND POORLY-FORMED GRANULOMAS. -GMS STAIN NEGATIVE FOR FUNGI. -AFB STAIN NONCONTRIBUTORY DUE TO HIGH BACKGROUND STAINING. C. LYMPH NODE, STATION 10R, FNA: -NO EVIDENCE OF MALIGNANCY. -LYMPHOID TISSUE. 12/27/2024 1:48 PM EDT [facility] at 1348 EDT Comment By report, no immunophenotypic abnormalities are found by flow cytometry. Clinical correlation is suggested. 12/27/2024 1:48 PM EDT [facility] Clinical Information R59.9 - Enlarged lymph nodes, unspecified [ICD-10-CM] 12/27/2024 1:48 PM EDT [facility] Gross Description A. [id number] Received along with a corresponding pathology report from [facility]ology [facility] Cytology Laboratory are 8 slides labeled outside case: [id number] collected on 12/15/2024. 12/27/2024 1:48 PM EDT [facility] Fine Needle Aspirate Lymph node specimen / Unknown 12/25/2024 10:38 AM EDT 12/25/2024 10:38 AM EDT us Kemar Reddy MD LAB PATHOLOGY ORDERABLES Fin al Result [facility] [address] [place] [address] documented in this encounter Visit Diagnoses Diagnosis [...] documented as of this encounter Care Teams Technical Internship Relationship Specialty Start Date End Date Savanah Delgado PA [address] [place] [address] PCP - General 05/06/23 documented as of this encounter
--- OUTSIDE RECORDS SUMMARY | 2025-05-14 13:53 | XMS_ITS | Encounter Summary ---
Author Organization [facility] Address [address] [place] [address] Care Team Providers Care Group Fitness Department Head Name Role Phone Savanah Delgado Primary Care Provider [phone] Encounter Details Date Type Department Care Team (Late st Contact Info) Description 12/02/2024 Orders Only External Location [address] [place] [phone] Provider, External Social History Tobacco Use Types [...] Recorded Patient Health Questionnaire-2 Score 0 11/08/2024 [place] Depression Scale Answer Date Recorded [place] Depression Scale Total 8 12/20/2023 The thought [...] PM EDT Office Visit Obstetrics & Gynecology [address] [place] [address] Ileana Wright MD [address] [place] [address] documented as of this encounter [...] documented as of this encounter Care Teams Group Fitness Department Head Relationship Specialty Start Date End Date Savanah Delgado PA [address] [place] [address] PCP - General 05/06/23 documented as of this encounter
--- OUTSIDE RECORDS SUMMARY | 2025-05-14 13:53 | XMS_ITS | Encounter Summary ---
Author Organization [facility] Address [address] [place] [address] Care Team Providers Care House Detective Name Role Phone Savanah Delgado Primary Care Provider [phone] Encounter Details Date Type Department Care Team (Late st Contact Info) Description 12/02/2024 Orders Only External Location [address] [place] [phone] Provider, External Social History Tobacco Use Types [...] Recorded Patient Health Questionnaire-2 Score 0 11/08/2024 [place] Depression Scale Answer Date Recorded [place] Depression Scale Total 8 12/20/2023 The thought [...] PM EDT Office Visit Obstetrics & Gynecology [address] [place] [address] Ileana Wright MD [address] [place] [address] documented as of this encounter [...] documented as of this encounter Care Teams House Detective Relationship Specialty Start Date End Date Savanah Delgado PA [address] [place] [address] PCP - General 05/06/23 documented as of this encounter
--- OUTSIDE RECORDS SUMMARY | 2025-05-14 13:53 | XMS_ITS | Clinical Summary ---
Author Organization [facility] Address [address] [place] [address] Care Team Providers Care Circulation Sales Representative Name Role Phone Provider, No Known Primary [...] e 07/27/2023 Family and Community Support Answer Oyel e Recorded Help with Day-to-Day Activities Not [...] this topic Medical Devices Implanted Type Area Emissions Testing Technician Device Identifier Shelf Expiration Date Model / Serial / Lot Implant Implanted:Qt y: 4 Implant Description:Left elbow pins. Sys Joselss Ac Dogbone/Butn Imp - [id number] Implanted:Qt y: 1 on 01/20/2021 by Daniel Li MD at [facility] Implant Right: Shoulder ARTHREX [id number] 09/16/2025 [id number] / / [id number] Sut Fw 3wr 38in .5cir Cut Ndl 48m - [id number] Implanted:Qt y: 1 on 01/20/2021 by Daniel Li MD at [facility] Implant Right: Shoulder ARTHREX 10/17/2023 [id number] / / Tndn Ant Tib Flxigrft Grt/Than 230x7.5mm Cust - [id number] - [id number] Implanted:Qt y: 1 on 01/20/2021 by Daniel Li MD at [facility] Implant Right: Shoulder [facility] [id number] 05/22/2023 [id number] / [id number] / N/A Sut Fw 3wr 38in .5cir Cut Ndl 48m - [id number] Implanted:Qt y: 1 on 01/20/2021 by Daniel Li MD at [facility] Implant Right: Shoulder ARTHREX 10/17/2023 [id number] / / Sut Fibertape Fw 2mm 54in Silverio [id number] - [id number] Implanted:Qt y: 2 on 01/20/2021 by Daniel Li MD at [facility] Implant Right: Shoulder ARTHREX [id number] / / Insurance [address] [place] [address] Care Teams Circulation Sales Representative Relationship Specialty Start Date End Date Provider, No Known [facility] [place] [address] PCP - General 12/30/20
--- OUTSIDE RECORDS SUMMARY | 2025-05-14 13:53 | XMS_ITS | Encounter Summary ---
Author Organization [facility] Address [address] [place] [address] Care Team Providers Care Errand Runner Name Role Phone Savanah Delgado Primary Care Provider [phone] Encounter Details Date Type Department Care Team (Late st Contact Info) Description 10/19/2024 Orders Only External Location [address] [place] [phone] Provider, External Social History Tobacco Use Types [...] Recorded Patient Health Questionnaire-2 Score 1 12/20/2023 [place] Depression Scale Answer Date Recorded [place] Depression Scale Total 8 12/20/2023 The thought [...] PM EDT Office Visit Obstetrics & Gynecology [address] [place] [address] Ileana Wright MD [address] [place] [address] documented as of this encounter [...] documented as of this encounter Care Teams Errand Runner Relationship Specialty Start Date End Date Savanah Delgado PA [address] [place] [address] PCP - General 05/06/23 documented as of this encounter
--- OUTSIDE RECORDS SUMMARY | 2025-05-14 13:53 | XMS_ITS | Encounter Summary ---
Author Organization [facility] Address [address] [place] [address] Care Team Providers Care Parole Agent Name Role Phone Savanah Delgado Primary Care Provider Encounter Details Date Type Department Care Team (Late st Contact Info) Description 12/02/2024 Orders Only External Location [address] [place] [phone] Provider, External Social History Tobacco Use Types [...] Recorded Patient Health Questionnaire-2 Score 0 11/08/2024 [place] Depression Scale Answer Date Recorded [place] Depression Scale Total 8 12/20/2023 The thought [...] PM EDT Office Visit Obstetrics & Gynecology [address] [place] [address] Ileana Wright MD [address] [place] [address] documented as of this encounter [...] documented as of this encounter Care Teams Parole Agent Relationship Specialty Start Date End Date Savanah Delgado PA [address] [place] [address] PCP - General 05/06/23 documented as of this encounter
--- OUTSIDE RECORDS SUMMARY | 2025-05-14 13:53 | XMS_ITS | Encounter Summary ---
Author Organization [facility] Address [address] [place] [address] Care Team Providers Care Children Counselor Name Role Phone Savanah Delgado Primary Care Provider [phone] Encounter Details Date Type Department Care Team [...] things needed for daily living? No 01/22/2025 Clayton Depression Scale Answer Date Recorded Clayton Depression Scale Total 8 12/20/2023 The thought [...] any time in the past 12 m [facility], were you homeless or living in a senior living (including now)? No 01/22/2025 Utilities Answer Date [...] Visit Obstetrics & Gynecology [address] [place] [address] Ileana Wright MD [address] [place] [address] documented as of this encounter [...] documented as of this encounter Care Teams Children Counselor Relationship Specialty Start Date End Date Savanah Delgado PA [address] [place] [address] PCP - General 05/06/23 documented as of this encounter
--- OUTSIDE RECORDS SUMMARY | 2025-05-14 13:53 | XMS_ITS | Clinical Summary ---
Author Organization [facility] Address [address] [place] [address] Care Team Providers Care Business Solutions Analyst Name Role Phone Savanah Delgado Primary Care Provider [phone] Allergies Active Allergy Reactions Criticality Noted Date [...] glucola for next visit -will call [place] for psychosis/anxiety medication management -RTC 2 weeks [...] Clinical Support Obstetrics & Gynecology [address] [place] [address] Encounter for surveillance of injectable contraceptive (Primary Dx) 05/09/2025 Travel 02/12/2025 10:45 AM EDT Office Visit [facility] Res[facility] [address] [facility], [address]nd [place] [address] Kemar Reddy MD Mediastinal adenopathy 02/12/2025 10:00 AM EDT - 02/12/2025 11:59 PM EDT Hospital Encounter [facility] H Radiology [address] [place] [address] Mediastinal adenopathy Discharge Disposition: Home or Self [...] Brother 2 Mark Davisea Jr Arthritis Father Mark Davisea Drug abuse Father Mark Davisea Mental [...] things needed for daily living? No 01/22/2025 [place] Depression Scale Answer Date Recorded [facility] Depression Scale Total 8 12/20/2023 The thought [...] in the past 12 m [facility], were you homeless or living in a prison (including now)? No 01/22/2025 Utilities Answer Date [...] Visit Obstetrics & Gynecology [address] [place] [address] Ileana Wright MD [address] [place] [address] Health Maintenance Due Date Last Done Comments [facility]-/Child/Adol SDOH Screenings 2000 HPV Vaccines (1 - 3-dose series) 2015 [facility]-Pneumococcal Vaccine: Pediatrics (0 to 5 Years) and At-Risk Patients (6 to 49 Years) (1 of 2 - PCV) 2019 11/08/2001, 07/07/2001, 04/19/2001, Additional history exists [facility]-Pap Smear 2021 [id number] Vaccine (3 - 2023- season) 2024 05/13/2021, [...] 2 Antibody/Antigen Screen (05/06/2023 9:46 AM EDT) [facility] HIV 1 & 2 Antibody/Antigen Screen Non Reactive Non Reactive 05/06/2023 2:01 PM EDT [facility] Comment:Screening for HIV 1 & 2 antibodies, and P24 antigen is NONREACTIVE. No confirmatory testing is required. Blood Venous blood specimen / Unknown Venipuncture / Unknown 05/06/2023 9:46 AM EDT 05/06/2023 1:04 PM EDT Ileana Wright MD LAB BLOOD ORDERABLES Fin al Result Performing Organization Address City/[facility]/ZIP Co de Phone Number [facility] [address] [place] [address] * Hepatitis C Antibody (05/06/2023 9:46 AM EDT) [facility] Hepatitis C Antibody Negative Negative 05/06/2023 2:01 PM EDT [facility] Blood Venous blood specimen / Unknown Venipuncture / Unknown 05/06/2023 9:46 AM EDT 05/06/2023 1:04 PM EDT Ileana Wright MD LAB BLOOD ORDERABLES Fin al Result Performing Organization Address City/[facility] Co de Phone Number [facility] [address] [place] [address] from Last 3 Months or Most Recently Relevant to Health Maintenance Additional Health Concerns Active Problems Noted Date Diagnosed Date CPM S22 PP LABOR (OBSTETRICS) 05/06/2023 Insurance [facility] Advance Directives * Full Code (Latest Code Status on File) Date Activated Date Inactivated Comments 01/19/2025 3:11 PM 01/22/2025 1:22 PM Care Teams Business Solutions Analyst Relationship Specialty Start Date End Date Savanah Delgado PA [address] [place] [address] PCP - General 05/06/23
== END 2025-05-12 23:59 | disposition home or self-care (01) ==
LOC: LAB.DROPOF 05-14 13:51
PROVIDERS: PCP Nurse Practitioner Family; Visit Provider Nurse Practitioner Family
DX: R50.9 Fever, unspecified (principal)
CPT/HCPCS: 87631

== ENCOUNTER 2025-05-12 17:01 | Emergency (ER) | payer OTHER, SELFPAY ==
--- OUTSIDE RECORDS SUMMARY | 2025-05-09 15:00 | XMS_ITS | Encounter Summary ---
Author Organization [facility] Address [address] [place] [address] Care Team Providers Care Curriculum Coach Name Role Phone Savanah Delgado Primary Care Provider [phone] Reason for Visit * Reason Comments Contraception Here for depo. Encounter Details Date Type Department Care Team (Latest Contact Info) Description 05/09/2025 3:00 PM EDT Clinical Support Obstetrics & Gynecology [address] [place] [id number] Encounter for surveillance of injectable contraceptive (Primary Dx) Social History Tobacco Use Types Packs/Day Years Used Date Smoking Tobacco: Former Cigarettes 0.5 6 2 016 - 2021 Passive Smoke Exposure: Yes Smokeless Tobacco: Former Snuff Quit: 07/2022 Comments:I currently use a v ape Alcohol Use Standard Drinks/Week Comments Not Currently 3 (1 standard drink = 0.6 oz pur e alcohol) 1 bottle wine every 2 months Humiliation, Afraid, Rape, and Kick questionnair e Answer Date Recorded Within the last year, have y ou been afraid of your partner or ex-partner? No 01/22/2025 Within the last year, have y ou been humiliated or emotionally abused in other ways by your partner or ex-partner? No Within the last year, have y ou been kicked, hit, slapped, or otherwise physically hurt by your partner or ex-partner? No 01/22/2025 Within the last year, have y ou been raped or forced to have any kind of sexual activity by your partner or ex-partner? No 01/22/2025 PHQ-2 Answer Date Recorded Patient Health Questionnaire-2 Score 0 11/08/2024 Hunger Vital Sign Answer Date Recorded Within the past 12 months, y ou worried that your food would run out before you got the money to buy more. Never true 01/23/20 25 Within the past 12 months, t he food you bought just didn't last and you didn't have money to get more. Never true 01/22/2025 PRAPARE - Transportation Answer Date Re corded In the past 12 months, has l ack of transportation kept you from medical appointments or from getting medications? No 04/2025 In the past 12 months, has l ack of transportation kept you from meetings, work, or from getting things needed for daily living? No 01/22/2025 [place] Depression Scale Answer Date Recorded [place] Depression Scale Total 8 12/20/2023 The thought of harming myself has occurred to me . Never 12/20/2023 PHQ-9 Answer Date Recorded Patient Health Questionnaire-9 Score 0 11/08/2024 Housing Stability Vital Sign Answer Yoel e Recorded In the last 12 months, was t here a time when you were not able to pay the mortgage or rent on time? No 01/22/2025 Number of Times Moved in the Last Year Not on fi le 01/22/2025 At any time in the past 12 m [facility], were you homeless or living in a care home (including now)? No 01/22/2025 Utilities Answer Date Recorded In the past 12 months has th e electric, gas, oil, or water company threatened to shut off services in your home? No 01/22/2025 PHQ-2A Answer Date Recorded Patient Health Questionnaire-2 Score 1 09/22/2023 Comments No Sex and Gender Information Value Date Recorded Sex Assigned at Not on file Legal Sex Female 8:30 PM EDT Gender Identity Not on file Sexual Orientation Not on file documented as of this encounter Miscellaneous Notes * Clinician Note - Arina Izaguirre - 05/09/2025 3:00 PM EDT Pt came to the lab for depo. Last depo 02/08/25, in time frame. Pt tolerated well. documented in this encounter Plan of Treatment Upcoming Encounters Date Type Department Care Team (Late st Contact Info) Description 07/25/2025 2:45 PM EDT Office Visit Obstetrics & Gynecology [address] [place] [phone] Ileana Wright MD [address] [place] [address] documented as of this encounter Goals Goal Patient Goal Type Associated Problems Recent Progress Patient-Stated? Author Delayed Delivery Care Plan CPM S22 PP LABOR (OBSTETRICS) No Open Scheduling, Background documented as of this encounter Visit Diagnoses Diagnosis Encounter for surveillance of injectable contraceptive- Primary documented in this encounter Administered Medications Inactive Administered Medications - up to 3 most recent administrations Medication Order MAR Action Action Date Dose Rate Site medroxyPROGESTERone (Depo-Provera) injection 150 mg 150 mg, Intramuscular, Once, 1 dose, On Wed05/09/25 at 1615, RoutineIndications:Encounter for surveillance of injectable contraceptive Given 05/09/2025 3:28 PM EDT 150 mg Right Deltoid documented in this encounter Additional Health Concerns Active Problems Noted Date Diagnosed Date CPM S22 PP LABOR (OBSTETRICS) 05/06/2023 Assessment Noted Time PHQ-9 Depression Total Score: 0 11/08/19 2:57 PM EST A fall risk assessment has been complete d for the patient 02/12/2025 10:47 AM EDT A Body Mass Index follow-up plan has been documented for the patient 05/09/2025 3:29 PM EDT documented as of this encounter Care Teams Curriculum Coach Relationship Specialty Start Date End Date Savanah Delgado PA [address] [place] [address] PCP - General 05/06/23 documented as of this encounter
[2025-05-12 17:20] VITALS: BP 128/76; PULSE 108; RESP 18; TEMP 37.1; O2SAT 98; BMI 37.1
--- NOTE | 2025-05-12 17:21 | ED_ITS ---
<Statement entered by Clementina Russ DO - 05/12/25 23:09> I was consulted by the HERBERT, and we discussed the complexity of the problems being addressed. I approved the treatment and management plan for this patient's care in the emergency department, thus performing a substantive portion of the medical decision making. Clementina Russ DO Discharge Plan Disposition Patient Disposition: Left Against Medical Advice Condition: Good Prescriptions Prescriptions: No Action Nurtec ODT 75 mg tablet,disintegrating 75 mg PO ONCE PRN (Reason: Migraines) Qty: 8 11RF propranolol 40 mg tablet 40 mg PO BID MDD 80 mg Qty: 60 5RF albuterol sulfate 90 mcg/actuation HFA aerosol inhaler 2 inh IH Q6HP PRN (Reason: Shortness Of Breath) 30 Days Qty: 8.5 5RF (DME) blood pressure monitor Kit See Rx Instructions .ROUTE .MEDSUPPLY Qty: 1 0RF Rx Instructions: As directed ipratropium-albuterol 0.5 mg-3 mg(2.5 mg base)/3 mL solution for nebulization 3 ml inhalation QID PRN (Reason: shortness of breath or wheezing) 90 Days Qty: 270 3RF acetaminophen [Pain Relief (acetaminophen)] 325 mg tablet 650 mg PO Q6H Qty: 120 0RF medroxyprogesterone [Depo-Provera] 150 mg/mL Suspension See Rx Instructions .ROUTE .COMPLEX Rx Instructions: 300 mg intramuscularly Referrals Follow up/Referrals: Dontae Mann APRN [Primary Care Provider, Family Practice] - See instructions Clinical Impressions Clinical Impression: Migraine, Blurred vision, bilateral, Heart palpitations, Hypertension Print Language Print Language: Pashto Discharge ED Provider: Clementina Russ General Adult HPI <JOHN Mar - Last Filed: 05/12/25 19:36> General Chief complaint: Weakness Stated complaint: sent by [facility] heartrate 139 bp 191/61 Time Seen by Provider: 05/12/25 17:15 Mode of Arrival: Ambulatory Source of Information: Patient Limitations: No Limitations History of Present Illness HPI narrative: 24-year-old female presents emerged department at the request of urgent care provider for tachycardia, blurry vision in bilateral eyes for the last 2 days, as well as intermittent chest pain, and elevated blood pressure reading at the urgent care facility. According to urgent care treatment note, patient and tachycardia at 130, as well as blood pressure in the 190 systolic, this was prompted to come to the emergency department, she was tested for viral illness, admitted to subjective fever chills cough congestion, with apparent exposures/sick contacts being the children, negative for swabs, thought to have viral URI. Patient admits to occasional shortness of breath, lightheadedness, intermittent dizziness over the last 2 days, no other visual disturbance to include decreased visual acuity, double vision, denies any flashes or floaters, admits to nausea, 1 episode of vomiting yesterday, denies any abdominal pain or nausea vomiting today, denies any urinary type symptomatology, denies any vaginal bleeding or vaginal discharge, any constipation or diarrhea, denies any melena hematochezia hematemesis or hemoptysis, admits to persistent 5-day headache/migraine, and states that she feels 1 coming on now . Currently but does have history of migraine headaches follows with neurology, takes propranolol and Nurtec daily, scribes her chest pain/pressure is a 4 out of 10 , nonradiating, she is on OCP therapy with Depo-Provera, initial triage vitals were notable for tachycardia, otherwise unremarkable, SpO2 within normal limits. Please note that above description of symptoms, in this electronic medical record under categorization of recalled from ER triage doctor by RN are reflective of an initial nursing assessment, however, is not reflective of my full history and physical exam that was personally taken and clarified. Consequentially, this preceding description of symptoms, which may include the patient's categorized chief complaint in the EMR, do not reflect my personal clinical impression, and the ultimate description of history of present illness and patient stated complaints should be deferred to this section of the note. Unless stated otherwise or congruent with this section of the note, additional signs, symptoms, or incongruence should be interpreted as inaccurate with my clinical impression. Onset (ago): day(s) Related Data Home Medications ?Medication ?Instructions ?Recorded ?Confirmed medroxyprogesterone 150 mg/mL See Rx Instructions .Jeronimo te .COMPLEX 12/14/24 05/12/25 intramuscular suspension (Depo-Provera) Previous Rx's ?Medication ?Instructions ?Recorded albuterol sulfate 90 mcg/actuation 2 inh inhalation Q6 HP PRN 05/07/23 aerosol inhaler Shortness Of Breath 30 days #8.5 grams blood pressure monitor #1 ea 12/21/23 acetaminophen 325 mg tablet (Pain 650 mg (2 x 325 mg) PO Q6H #120 12/02/24 Relief (acetaminophen)) tabs ipratropium 0.5 mg-albuterol 3 mg 3 ml inhalation QID PRN shortness 12/15/24 (2.5 mg base)/3 mL nebulization of breath or wheezing 90 days #270 soln mL propranolol 40 mg tablet 40 mg PO BID Tachycardia, mi graine 02/06/25 prevention #60 tabs rimegepant 75 mg disintegrating 75 mg PO ONCE PRN Migr aines #8 tabs 02/06/25 tablet (Nurtec ODT) Allergies Allergy/AdvReac Type Severity Reaction Status Date / Time tomato (From TOMATOES Allergy Unknown UTI Verified 05/12/25 16:20 (FOOD/DRUG)) azithromycin Allergy seizure Verified 05/12/25 16:20 activity dexamethasone Allergy abnormal Verified 05/12/25 16:20 breathing pattern and syncope venom-wasp Allergy Anaphylaxis Verified 05/12/25 16:20 bee venom protein (honey bee) AdvReac Severe Anaphylaxis Verified 05/12/25 16:20 [facility] <JOHN Mar - Last Filed: 05/12/25 19:36> [facility] Disclaimer: The information contained in this section may have been updated after the patient was seen, as this information can be updated by other users. 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 Hilar lymphadenopathy Asthma Tachycardia Anxiety Irregular menses Chest pain Surgical History , DIE INSPECTOR) History of shoulder surgery History of elbow surgery Family History , DIE INSPECTOR) Substance abuse Diabetes FHx: mental illness Cancer Hypertension Asthma Social History Smoking Status: Never smoker alcohol intake: current alcohol intake frequency: a few times a month substance use type: denies use current occupational status: employed Travel in the last 8 weeks?: None household members: family housing: house marital status: Have you lived/traveled outside US in past 30 days?: No Contact w/someone who lives/traveled outside US past 30 days?: No Exposure to someone with infectious disease in past 14 days?: No Do you have a fever (greater than 100.4 F or 38 C)?: No Have you tested positive for COVID-19?: No Exposed to someone with COVID-19 in past 14 days?: No Do you have a sore throat?: No Do you have a cough?: No Do you have any weakness?: No Do you have any diarrhea?: No Are you experiencing any unusual bleeding?: No Do you have any muscle aches/pain?: No Do you have any abdominal pain?: No Are you experiencing loss of taste or smell?: No Other Medical History Have you received the Flu Vaccine for this season: No Have you received the Pneumonia Vaccine: No <JOHN Mar - Last Filed: 05/12/25 19:36> ROS Obtained: Yes All systems reviewed & no additional complaints except as documented Physical Exam <JOHN Mar - Last Filed: 05/12/25 19:36> General General appearance: alert and in no apparent distress Head Head exam: atraumatic and normocephalic Eye Eye exam: Present PERRL and EOMI ENT ENT exam: Present mucous membranes moist Neck Neck exam: Present normal inspection Chest Chest inspection: Present normal inspection and symmetric chest wall rise Respiratory Respiratory exam: Present normal lung sounds bilaterally; Absent respiratory distress Cardiovascular Cardiovascular exam: Present normal rhythm and tachycardia Abdominal Exam Abdominal exam: Present soft; Absent tenderness, guarding or rebound Extremities Exam Extremities exam: Present normal inspection Neurological Exam Neurological exam: Present alert, oriented X3 and other (5 out of 5 strength in bilateral lower and upper extremities, moves extremities to command, no gross focal neurological deficit or gross sensation deficit, negative finger-nose exam, no decreased visual acuity, peripheral vision intact,) Psychiatric Psychiatric exam: Present normal affect Skin Skin exam: Present warm and dry Medical Decision Making <JOHN Mar - Last Filed: 05/12/25 19:36> Medical Records Medical records reviewed: Yes I reviewed the patient's medical records. Screening: Per USPSTF and CDC recommendations, given the prevalence of disease in our region, it is our hospital?s policy to screen for HIV and viral Hepatitis for all patients aged 18 and over and those with ongoing risk factors. Сергей Inquiry Pt receiving controlled substance: No Сергей was queried for this patient: No Vital Signs: 05/12/25 17:20 05/12/25 17:20 Temperature 98.7 F 98.7 F Temperature Source Oral Pulse Rate 108 H Pulse Rate [Right] 108 H Respiratory Rate 18 18 Blood Pressure 128/76 Blood Pressure [Right Arm] 128/76 Blood Pressure Mean [Right Arm] 93 02 Sat by Pulse Oximetry 98 98 Lab Data Lab results reviewed: Yes I reviewed the patient's lab results. Lab Results 05/12/25 18:00: WBC 9.3, RBC 5.39, Hgb 12.8, Hct 40.6, MCV 75.3 L, MCH 23.7 L, M CHC 31.5 L, RDW 15.1, Plt Count 280, MPV 11.4 H, Neut % (Auto) 55.8, Lymph % (Auto) 28.5, [place] % (Auto) 10.8 H, Eos % (Auto) 4.4, Baso % (Auto) 0.3, Neut # (Auto) 5.2, Lymph # (Auto) 2.7, [place] # (Auto) 1.0, Eos # (Auto) 0.4, Baso # (Auto) 0.0, D-Dimer 0.67 H, Sodium 140, Potassium 4.0, Chloride 106, Carbon Dioxide 23, Anion Gap 15.0, BUN 17, Creatinine 0.70, Estimated Creat Clear 204, Estimated GFR 103, Est GFR ( Amer) 124, Glucose 107 H, Calcium 9.6, Total Bilirubin 0.2, AST 29, ALT 22, Alkaline Phosphatase 79, Troponin I < 0.01, NT-Pro-B Natriuret Pep < 20.0, Total Protein 7.8, Albumin 4.2, Globulin 3.6 H, Albumin/Globulin Ratio 1.2, TSH 2.08, Thyroxine (T4) 7.7, Serum HCG, Qual Negative 05/12/25 18:00 05/12/25 18:00 Orders (Tests/Meds): ED MEDICATIONS Generic Name Dose Route Start Last Admin Trade Name Apolloq PRN Reason Stop Dose Admin Iopamidol 70 ml 05/12/25 19:20 05/12/25 19:21 Iopamidol-370 (76%);100ml Bottle IV 05/12/25 19:21 70 ml ONCE ONE Administration Sodium Chloride 10 ml 05/12/25 19:20 05/12/25 19:21 Sodium Chloride 0.9% 10ml Syr (Rad Only) IV 06/11/25 19:19 10 ml NEEDED PRN Administration Maintain IV Site Discontinued Medications Generic Name Dose Route Start Last Admin Trade Name Freq PRN Reason Stop Dose Admin Diphenhydramine HCl 25 mg 05/12/25 18:01 05/12/25 18:21 Diphenhydramine 50mg/Ml Vial IV 05/12/25 18:02 25 mg ONCE ONE Administration Ketorolac Tromethamine 15 mg 05/12/25 18:02 05/12/25 18:24 Ketorolac 30mg/Ml Vial IV 05/12/25 18:03 15 mg ONCE ONE Administration Prochlorperazine Edisylate 10 mg 05/12/25 18:01 05/12/25 18:27 Prochlorperazine 10mg/2ml Vial IV 05/12/25 18:02 10 mg ONCE ONE Administration Sodium Chloride 50 ml 05/12/25 19:20 05/12/25 19:21 0.9 % Sodium Chloride 50 Ml Vial IV 05/12/25 19:21 50 ml ONCE ONE Administration ORDERS Category Date Time Status CT angio chest PE protocol Stat Cat Scan 05/12/25 18:[address] head/brain wo con Stat Cat Scan 05/12/25 18:58 Taken Complete Blood Count Auto Diff Stat Lab 05/12/25 18:00 Completed Comprehensive Metabolic Panel Stat Lab 05/12/25 18:00 Completed D-Dimer Stat Lab 05/12/25 18:00 Completed HCG Qualitative, Serum Stat Lab 05/12/25 18:00 Completed NT Pro Brain Natriuretic Pep. Stat Lab 05/12/25 18:00 Completed T4 (Thyroxine) Stat Lab 05/12/25 18:00 Completed TSH [Thyroid Stimulating Hormone] Stat Lab 05/12/25 18:00 Completed Troponin I Q3H Lab 05/12/25 20:30 Ordered Troponin I Q3H Lab 05/12/25 23:30 Ordered Troponin I Stat Lab 05/12/25 18:00 Completed Medical Decision Narrative: 24-year-old female presents the emergency department with multiple complaints, see HPI for detail past medical history, differential diagnose include but not limited to, panic attack, anxiety reaction, electrolyte disturbance, ACS, PE, cardiac arrhythmia, migraine with aura, migraine without aura, thyrotoxicosis among others. I discussed this patient's case with attending patient Dr. Russ Will obtain basic laboratory studies, D-dimer, hCG qualitative, proBNP, TSH T4, ECG troponin, will give IV 10 mg Compazine, 25 mg Benadryl, and 15 mg IV Toradol for migraine cocktail. CBC is normal for anemia with an MCV of 75.3, hemoglobin hematocrit are stable. Appears to be patient's baseline MCV CMP unremarkable. hCG qualitative is negative. Initial troponin is less than 0.01 D-dimer is 0.67, thus will obtain CTA chest with and without contrast PE protocol and CT head without contrast. TSH is within normal limits T4 within normal limits. I had a long discussion with the patient at bedside, patient that she is feeling better as far as her symptomatology is concerned, she did not want to wait for her formal radiology report to return on her CT head without contrast as well as CTA chest with and without contrast, all risk associated with leaving his medical advice prior to full workup completion was discussed with the patient at bedside, patient voiced understanding and knowledge all risks. Call patient with results, if any are actionable on her formal radiology reports. Recommend follow-up with your neurologist and PCP in the upcoming days. Patient was given strict ED return precautions. Patient voiced understanding and agreed with current treatment AGAINST MEDICAL ADVICE at this time. Patient blood pressure and tachycardia have improved thus hemodynamically stable upon discharge. <Clementina Russ, DO - Last Filed: 05/12/25 17:47> Vital Signs: 05/12/25 17:20 05/12/25 17:20 Temperature 98.7 F 98.7 F Temperature Source Oral Pulse Rate 108 H Pulse Rate [Right] 108 H Respiratory Rate 18 18 Blood Pressure 128/76 Blood Pressure [Right Arm] 128/76 Blood Pressure Mean [Right Arm] 93 02 Sat by Pulse Oximetry 98 98 Lab Data Lab Results 05/12/25 18:00: WBC 9.3, RBC 5.39, Hgb 12.8, Hct 40.6, MCV 75.3 L, MCH 23.7 L, M CHC 31.5 L, RDW 15.1, Plt Count 280, MPV 11.4 H, Neut % (Auto) 55.8, Lymph % (Auto) 28.5, [place] % (Auto) 10.8 H, Eos % (Auto) 4.4, Baso % (Auto) 0.3, Neut # (Auto) 5.2, Lymph # (Auto) 2.7, [place] # (Auto) 1.0, Eos # (Auto) 0.4, Baso # (Auto) 0.0, D-Dimer 0.67 H, Sodium 140, Potassium 4.0, Chloride 106, Carbon Dioxide 23, Anion Gap 15.0, BUN 17, Creatinine 0.70, Estimated Creat Clear 204, Estimated GFR 103, Est GFR ( Amer) 124, Glucose 107 H, Calcium 9.6, Total Bilirubin 0.2, AST 29, ALT 22, Alkaline Phosphatase 79, Troponin I < 0.01, NT-Pro-B Natriuret Pep < 20.0, Total Protein 7.8, Albumin 4.2, Globulin 3.6 H, Albumin/Globulin Ratio 1.2, TSH 2.08, Thyroxine (T4) 7.7, Serum HCG, Qual Negative Orders (Tests/Meds): ED MEDICATIONS Generic Name Dose Route Start Last Admin Trade Name Freq PRN Reason Stop Dose Admin Iopamidol 70 ml 05/12/25 19:20 05/12/25 19:21 Iopamidol-370 (76%);100ml Bottle IV 05/12/25 19:21 70 ml ONCE ONE Administration Sodium Chloride 10 ml 05/12/25 19:20 05/12/25 19:21 Sodium Chloride 0.9% 10ml Syr (Rad Only) IV 06/11/25 19:19 10 ml NEEDED PRN Administration Maintain IV Site Discontinued Medications Generic Name Dose Route Start Last Admin Trade Name Freq PRN Reason Stop Dose Admin Diphenhydramine HCl 25 mg 05/12/25 18:01 05/12/25 18:21 Diphenhydramine 50mg/Ml Vial IV 05/12/25 18:02 25 mg ONCE ONE Administration Ketorolac Tromethamine 15 mg 05/12/25 18:02 05/12/25 18:24 Ketorolac 30mg/Ml Vial IV 05/12/25 18:03 15 mg ONCE ONE Administration Prochlorperazine Edisylate 10 mg 05/12/25 18:01 05/12/25 18:27 Prochlorperazine 10mg/2ml Vial IV 05/12/25 18:02 10 mg ONCE ONE Administration Sodium Chloride 50 ml 05/12/25 19:20 05/12/25 19:21 0.9 % Sodium Chloride 50 Ml Vial IV 05/12/25 19:21 50 ml ONCE ONE Administration ORDERS Category Date Time Status CT angio chest PE protocol Stat Cat Scan 05/12/25 18:[address] head/brain wo con Stat Cat Scan 05/12/25 18:58 Taken Complete Blood Count Auto Diff Stat Lab 05/12/25 18:00 Completed Comprehensive Metabolic Panel Stat Lab 05/12/25 18:00 Completed D-Dimer Stat Lab 05/12/25 18:00 Completed HCG Qualitative, Serum Stat Lab 05/12/25 18:00 Completed NT Pro Brain Natriuretic Pep. Stat Lab 05/12/25 18:00 Completed T4 (Thyroxine) Stat Lab 05/12/25 18:00 Completed TSH [Thyroid Stimulating Hormone] Stat Lab 05/12/25 18:00 Completed Troponin I Q3H Lab 05/12/25 20:30 Ordered Troponin I Q3H Lab 05/12/25 23:30 Ordered Troponin I Stat Lab 05/12/25 18:00 Completed ECG Data Tracing #1: I reviewed this ECG and interpreted as documented below: I independently interpreted EKG at 1740 and noted sinus tachycardia with a ventricular rate of [address] changes concerning for ischemia. Normal intervals ECG initial impression date: 05/12/25 ECG initial impression time: 17:40 Critical Care <JOHN Mar - Last Filed: 05/12/25 19:36> Critical Care Time Critical Care Time: No
--- OUTSIDE RECORDS SUMMARY | 2025-05-12 17:22 | XMS_ITS | Encounter Summary ---
Author Organization Healthcare Address [address] [place] [address] Care Team Providers Care Parimutuel Ticket Checker Name Role Phone Savanah Delgado Primary Care Provider [phone] Encounter Details Date Type Department Care Team (Late st Contact Info) Description 12/02/2024 Orders Only External Location [address] [place] [id number] Provider, External Social History Tobacco Use Types Packs/Day Years Used Date Smoking Tobacco: Former Cigarettes 0.5 6 2 016 - 2021 Passive Smoke Exposure: Yes Smokeless Tobacco: Former Snuff Quit: 07/2022 Comments:I currently use a v ape Alcohol Use Standard Drinks/Week Comments Not Currently 3 (1 standard drink = 0.6 oz pur e alcohol) PHQ-2 Answer Date Recorded Patient Health Questionnaire-2 Score 0 11/08/2024 [place] Depression Scale Answer Date Recorded [place] Depression Scale Total 8 12/20/2023 The thought of harming myself has occurred to me . Never 12/20/2023 PHQ-9 Answer Date Recorded Patient Health Questionnaire-9 Score 0 11/08/2024 PHQ-2A Answer Date Recorded Patient Health Questionnaire-2 Score 1 09/22/2023 Comments No Sex and Gender Information Value Date Recorded Sex Assigned at Not on file Legal Sex Female 8:30 PM EDT Gender Identity Not on file Sexual Orientation Not on file documented as of this encounter Plan of Treatment Upcoming Encounters Date Type Department Care Team (Late st Contact Info) Description 07/25/2025 2:45 PM EDT Office Visit Obstetrics & Gynecology [address] [place] [phone] Ileana Wright MD [address] [place] [address] documented as of this encounter Goals Goal Patient Goal Type Associated Problems Recent Progress Patient-Stated? Author Delayed Delivery Care Plan CPM S22 PP LABOR (OBSTETRICS) No Open Scheduling, Background documented as of this encounter Procedures Procedure Name Priority Date/Time Associated Diagnosis Comments CT THORACIC OUTSIDE IMAGES 12/02/2024 6:37 PM EST documented in this encounter Results * CT THORACIC OUTSIDE IMAGES (12/02/2024 6:37 PM EST) Anatomical Region Laterality Modality Computed Tomogra phy 12/02/2024 6:37 PM EST us External Provider IMG CT PROCEDURES Final Result documented in this encounter Visit Diagnoses Not on filedocumented in this encounter Additional Health Concerns Active Problems Noted Date Diagnosed Date CPM S22 PP LABOR (OBSTETRICS) 05/06/2023 Assessment Noted Time PHQ-9 Depression Total Score: 0 11/08/19 25 2:57 PM EST A fall risk assessment has been complete d for the patient 11/08/2024 2:57 PM EST A Body Mass Index follow-up plan has been documented for the patient 11/08/2024 4:39 PM EST documented as of this encounter Care Teams Parimutuel Ticket Checker Relationship Specialty Start Date End Date Savanah Delgado PA [address] [place] [address] PCP - General 05/06/23 documented as of this encounter
--- OUTSIDE RECORDS SUMMARY | 2025-05-12 17:22 | XMS_ITS | Encounter Summary ---
Author Organization Healthcare Address [address] [place] [address] Care Team Providers Care Kitchen Designer Name Role Phone Savanah Delgado Primary Care Provider [phone] Encounter Details Date Type Department Care Team (Late st Contact Info) Description 12/02/2024 Orders Only External Location [address] [place] [phone] Provider, External Social History Tobacco Use Types [...] Recorded Patient Health Questionnaire-2 Score 0 11/08/2024 [place] Depression Scale Answer Date Recorded [place] Depression Scale Total 8 12/20/2023 The thought [...] PM EDT Office Visit Obstetrics & Gynecology [address] [place] [phone] Ileana Wright MD [address] [place] [address] documented as of this encounter Goals Goal Patient Goal Type Associated Problems Recent Progress Patient-Stated? Author Delayed Delivery Care Plan CPM S22 PP LABOR (OBSTETRICS) No Open Scheduling, Background documented as of this encounter Procedures Procedure Name Priority Date/Time Associated Diagnosis Comments US OUTSIDE IMAGES 12/02/2024 6:10 PM EST documented in this encounter Results * US OUTSIDE IMAGES (12/02/2024 6:10 PM EST) Anatomical Region Laterality Modality Ultrasound 12/02/2024 6:10 PM EST us External Provider IMG US PROCEDURES Final Result documented in this encounter [...] documented as of this encounter Care Teams Kitchen Designer Relationship Specialty Start Date End Date Savanah Delgado PA [address] [place] [address] PCP - General 05/06/23 documented as of this encounter
--- OUTSIDE RECORDS SUMMARY | 2025-05-12 17:22 | XMS_ITS | Encounter Summary ---
Author Organization Healthcare Address [address] [place] [address] Care Team Providers Care Fruit And Vegetable Parer Name Role Phone Savanah Delgado Primary Care Provider Encounter Details Date Type Department Care Team (Late st Contact Info) Description 12/02/2024 Orders Only External Location [address] [place] [id number] Provider, External Social History Tobacco Use Types [...] Recorded Patient Health Questionnaire-2 Score 0 11/08/2024 [place] Depression Scale Answer Date Recorded [place] Depression Scale Total 8 12/20/2023 The thought [...] PM EDT Office Visit Obstetrics & Gynecology [address] [place] [phone] Ileana Wirght MD [address] [place] [address] documented as of this encounter Goals Goal Patient Goal Type Associated Problems Recent Progress Patient-Stated? Author Delayed Delivery Care Plan CPM S22 PP LABOR (OBSTETRICS) No Open Scheduling, Background documented as of this encounter Procedures Procedure Name Priority Date/Time Associated Diagnosis Comments XR OUTSIDE IMAGES 12/02/2024 5:58 PM EST documented in this encounter Results * XR OUTSIDE IMAGES (12/02/2024 5:58 PM EST) Anatomical Region Laterality Modality Radiographic Najma ging 12/02/2024 5:58 PM EST us External Provider IMG XR PROCEDURES Final Result documented in this encounter [...] documented as of this encounter Care Teams Fruit And Vegetable Parer Relationship Specialty Start Date End Date Savanah Delgado PA [address] [place] [address] PCP - General 05/06/23 documented as of this encounter
--- OUTSIDE RECORDS SUMMARY | 2025-05-12 17:22 | XMS_ITS | Clinical Summary ---
Author Organization [facility] Address [address] [facility] [place] [address] Care Team Providers Care Ui Lead Developer Name Role Phone Savanah Delgado Primary Care Provider Allergies Active Allergy Reactions Criticality Noted Date Comments Azithromycin Unknown - Patient st ates they do not know rxn details Low 06/04/2023 Bee Venom Anaphylaxis High 01/17/2021 Dexamethasone Unknown - Patient st ates they do not know rxn details Low 06/04/2023 Other Other - please docum ent in the comment field Low 01/11/2025 ALL ACIDIC FOODS- GI Distress Tomato Other - please docum ent in the comment field Low 06/04/2023 GI Distress Wasp Venom Anaphylaxis High 01/17/2021 Medications acetaminophen (Tylenol) 325 MG tablet Take by mouth every 6 hours as needed. Active IPRATROPIUM-ALB UTEROL IN Take by nebulization as needed. Active medroxyPROGESTE Devon (Depo-Provera) 150 MG/ML injection Active methocarbamol (Robaxin) 500 MG tablet Take by mouth 3 (three) times a day as needed. 5 Active Umeclidinium-Vi lanterol (Anoro) 62.5-25 MCG/ACT aerosol powder aerosol powder Inhale 1 Inhalation daily. Active ASHWAGANDHA PO Take by mouth nightly. Active MAGNESIUM GLYCINATE PO Take by mouth nightly. Active Multiple Vitamins-Minera ls (HAIR SKIN & NAILS PO) Take by mouth in the evening. Active Apple Cider Vinegar 188 MG capsule Take 1 capsule by mouth daily. Active albuterol 108 (90 Base) MCG/ACT inhaler Inhale 2 puffs every 6 hours as needed. Active gabapentin (Neurontin) 300 MG capsule Take 1 capsule by mouth in the morning and 1 capsule in the evening and 1 capsule before bedtime. Do all this for 14 days. 42 capsule Active propranolol (Inderal) 40 MG tablet Active Hospital, Clinic, or Other Facility Administered Medication Ordered Dose Route Frequency Start Date End Date Status medroxyPROGESTERone (Depo-Provera) injection 150 mgIndications:Encounter for surveillance of injectable contraceptive 150 mg IM Once 05/09/2025 05/09/2025 Ended Active Problems Problem Noted Date Diagnosed Date Mediastinal adenopathy 01/19/2025 Tobacco use disorder 12/25/2024 Second hand smoke exposure 12/25/2024 Diarrhea 11/08/2023 Psychosis 10/20/2023 Need for RSV vaccination 10/20/2023 Heart palpitations 07/27/2023 Assessment & Plan (10/06/2023 2:23 PM EST): - currently on labetalol - she is not sure if it is helping - has cardiology follow up tomorrow Assessment & Plan (09/08/2023 11:53 AM EST): Wearing holter monitor for 2 more weeks - cardiology f/u 09/21 Discussed B-blockers are okay in if needed Assessment & Plan (08/13/2023 10:52 AM EDT): -Pt has heart monitor that will be dropped off tomorrow after pt gets off work Assessment & Plan (08/02/2023 8:49 AM EDT): - hotler monitoring is pending insurance approval - elevated HR today - she is symptomatic with some SOA and blurry vision - will send to ER for evaluation for EKG, lab work, and possible IVF if indicated Encounter for supervision of other normal , unspecified trimester 05/06/2023 Assessment & Plan (10/06/2023 2:15 PM EST): - labs reviewed - prelim growth US today vertex, ant plac, EFW 51%, AC 54%, normal dopplers, LENI 10.5, BPP 05/25 - continue PNV - RTC 2 weeks Assessment & Plan (08/02/2023 8:49 AM EDT): -labs reviewed, previously normal CBC -zofran Rx sent for nausea, vomiting -continue vitamins -has glucola for next visit -will call [place] for psychosis/anxiety medication management -RTC 2 weeks Assessment & Plan (05/26/2023 4:10 PM EDT): -CBC today -continue vitamins -FTS US/NIPT today-US WNL but suboptimal 1.5mm, FHR 157 -discussed vaginal bleeding precautions -Anatomy US at 20 weeks -RTC 4 weeks for RPV Assessment & Plan (05/06/2023 10:00 AM EDT): - labs today - pap up to date - repeat - US shows SIUP with CRL not c/w LMP, changes DUSTIN to 12/03/23 - desires genetic screening - FTS US ordered, desires NIPT - continue vitamin - new OB back pack given - discussed vaginal bleeding precautions - RTC 2-3 weeks Anxiety 05/20/2016 05/06/2023 Resolved Problems Problem Noted Date Diagnosed Date Resolved Date state, incidental 08/13/2023 1 11/23/2022 Assessment & Plan (09/08/2023 11:52 AM EST): - labs reviewed - Tdap today - declines flu shot - continue PNV - growth US ordered for S>D - RTC 2 weeks Assessment & Plan (08/13/2023 10:51 AM EDT): -glucola drawn today -UA showed mild dehydration but no UTI -Breast changes consistent with normal , no fever/chills/erythema. No breast symptoms today. -RTC in 4 weeks for RPV and tdap vaccine Encounters Date Type Department Care Team Description 05/09/2025 3:00 PM EDT Clinical Support Obstetrics & Gynecology [address] [place] [address] Encounter for surveillance of injectable contraceptive (Primary Dx) 05/09/2025 Travel 02/12/2025 10:45 AM EDT Office Visit [facility] [address] [facility] 2nd [place] [address] Kemar Reddy MD Mediastinal adenopathy 02/12/2025 10:00 AM EDT - 02/12/2025 11:59 PM EDT Hospital Encounter [facility] Rad[facility] [address] [place] [address] Mediastinal adenopathy Discharge Disposition: Home or Self Care 02/12/2025 Travel from Last 3 Months Immunizations Immunization Administration Dates Next Due Rsv, Bivalent, Protein Subun it Rsvpref, Diluent Reconstituted, 0.5mL, PF 10/20/2023 Tdap 09/08/2023 Family History Medical History Relation Name Comments defects Brother 1 Milind Gabriel Intellectual Disability Brother 1 Milind Davisea Anxiety disorder Brother 2 Mark Davisea Jr Depression Brother 2 Mark Davisea Jr Intellectual Disability Brother 2 Mark Davisea Jr Mental illness Brother 2 Mark Davisea Jr Arthritis Father Makr Davisea Drug abuse Father Mark Davisea Mental illness Father Mark Gabriel No Known Problems Father's Brother Alcohol abuse Father's Sister Drug abuse Father's Sister Diabetes Maternal Grandfather Obesity Maternal Grandfather Cardiac disorder Maternal Grandmother Diabetes Maternal Grandmother Obesity Maternal Grandmother Anxiety disorder Mother Vania Davisea Cardiac disorder Mother Vania Davisea Depression Mother Vania Davisea Diabetes Mother Vania Davisea Mental illness Mother Vania Davisea Miscarriages / Stillbirths Mother Vania Davisea Obesity Mother Vania Gabriel No Known Problems Mother's Brother No Known Problems Paternal Grandfather No Known Problems Paternal Grandmother Anxiety disorder Sister 1 Leslie Maryea Depression Sister 1 Leslie Maryea Mental illness Sister 1 Leslie Maryea No Known Problems Sister 2 defects Son 1 Sigifredo Kentrell Hearing loss Son 1 Sigifredo Kentrell Immunodeficiency Son 1 Sigifredo Kentrell Intellectual Disability Son 1 Sigifredo Kentrell No Known Problems Son 2 Anesthesia problems Neg Hx Malig Hyperthermia Neg Hx Relation Name Status Comments Brother 1 Milind Davisea Brother 2 Mark Davisea Jr Alive Father Mark Maryea Alive Father's Brother Alive Father's Sister Alive Maternal Grandfather Maternal Grandmother Mother Vania Gabriel Alive Mother's Brother Alive Other Paternal Grandfather Paternal Grandmother Sister 1 Leslie Gabriel Alive Sister 2 Alive Son 1 Sigifredo Pfeiffer Alive Son 2 Alive Social History Tobacco Use Types Packs/Day Years Used Date Smoking Tobacco: Former Cigarettes 0.5 6 2 016 - 2021 Passive Smoke Exposure: Yes Smokeless Tobacco: Former Snuff Quit: 07/2022 Tobacco Cessation:Counseling Given: No Comments:I currently use a vape Alcohol Use Standard Drinks/Week Comments Not Currently [...] things needed for daily living? No 01/22/2025 [place] Depression Scale Answer Date Recorded [place] Depression Scale Total 8 12/20/2023 The thought [...] any time in the past 12 m [facility], were you homeless or living in a retirement (including now)? No 01/22/2025 Utilities Answer Date [...] on file Sexual Orientation Not on file Last Filed Vital Signs Vital Sign Reading Time Taken Comments Blood Pressure 109/76 02/12/2025 10:46 AM EDT Pulse 77 02/12/2025 10:46 AM EDT Temperature 36.7 C (98.1 F) 02/12/2025 10:46 AM EDT Respiratory Rate 18 02/12/2025 10:46 AM EDT Oxygen Saturation 98% 02/12/2025 10:46 AM EDT Inhaled Oxygen Concentration - - Weight 106 kg (234 lb 9.1 oz) 02/12/2025 10:46 A M EDT Height 167.6 cm (5' 5.98 ) 01/19/2025 6:27 PM ED T Body Mass Index 37.88 01/19/2025 6:27 PM EDT Plan of Treatment Upcoming Encounters Date Type Department Care Team (Late st Contact Info) Description 07/25/2025 2:45 PM EDT Office Visit Obstetrics & Gynecology [address] [place] [address] Ileana Wright MD [address] [place] [address] Health Maintenance Due Date Last Done Comments [facility]-/Child/Adol SDOH Screenings 2000 HPV Vaccines (1 - 3-dose series) 2015 [facility]-Pneumococcal Vaccine: Pediatrics (0 to 5 Years) and At-Risk Patients (6 to 49 Years) (1 of 2 - PCV) 2019 11/08/2001, 07/07/2001, 04/19/2001, Additional history exists [facility]-Pap Smear 2021 [id number]-09 Vaccine (3 - 2023- season) 2024 05/13/2021, 04/14/2021 [facility]-Influenza Vaccine (#1) 2025 [facility]- SDOH Screenings 07/24/2025 [facility]-Adult SDOH Screenings 07/24/2025 01/22/2025 [facility]-Depression Screening 11/08/2025 025, 11/08/2024, 12/20/2023 [facility]-DTaP,Tdap,and Td Vaccines (9 - Td or Tdap) 09/08/2033 09/08/2023, 05/20/2017, 03/25/2012, Additional history exists [facility]-Zoster Vaccines (1 of 2) 2050 03/25/2012, 11/08/2001 [facility]-HIB Vaccines Completed 11/08/2001, 12/2000, 02/03/2001 [facility]-Hepatitis B Vaccines Completed 002, 02/03/2001, 2000 [facility]-IPV Vaccines Completed 11/13/2004, , 04/19/2001, Additional history exists [facility]-Varicella Vaccines Completed 03/25/2012, 2001 [facility]-Hepatitis A Vaccines Completed 11/29/2018, 0805/2018 [facility]-HIV Screening Completed 05/06/2023 [facility]-Hepatitis C Screening Completed 05/06/2023 [facility]-RSV Vaccine: 60+ Years or Discontinued 10/20/2023 [facility]-Obesity Intervention Completed 025, 02/12/2025, 02/08/2025, Additional history exists [facility]-Rotavirus Vaccines Aged Out No lo nger eligible based on patient's age to complete this topic Goals Goal Patient Goal Type Associated Problems Recent Progress Patient-Stated? Author Delayed Delivery Care Plan CPM S22 PP LABOR (OBSTETRICS) No Open Scheduling, Background Procedures Procedure Name Priority Date/Time Associated Diagnosis Comments XR CHEST 2 VIEWS Routine 02/12/2025 10:3 8 AM EDT Mediastinal adenopathy HEPATITIS C ANTIBODY W/REFLEX TO HCV QUANT PCR Routine 05/06/2023 9:46 AM EDT state, incidental HIV 1/2 ANTIBODY/ANTIGEN SCREEN WITH REFLEX TO HIV I/II DIFFERENTIATION Routine 05/06/2023 9:46 AM EDT state, incidental from Last 3 Months or Most Recently Relevant to Health Maintenance Results * XR Chest 2 Views (02/12/2025 10:38 AM EDT) Anatomical Region Laterality Modality Chest Digital Radiogra phy Impressions 02/12/2025 11:15 AM EDT No acute findings. CRITICAL RESULT: No. COMMUNICATION: Per this written report. By electronically signing this report, I, the attending physician, attest that I have personally reviewed the images/data for the above examination(s) and agree with the final edited report. Drafted by Dwight Mensah MD on 02/12/2025 10:42 AM Final report signed by Ana Paula Polk MD on 02/12/2025 11:15 AM Narrative 02/12/2025 11:15 AM EDT CLINICAL INDICATION: evaluation of lung viveros TECHNIQUE: XR CHEST 2 VIEWS COMPARISON: January 22, 2025 FINDINGS: Stable cardiomediastinal silhouette. No consolidation. No pneumothorax or pleural effusion. Procedure Note Ana Paula Polk MD - 02/12/2025 CLINICAL INDICATION: evaluation of lung viveros TECHNIQUE: XR CHEST 2 VIEWS COMPARISON: January 22, 2025 FINDINGS: Stable cardiomediastinal silhouette. No consolidation. No pneumothorax orpleural effusion. IMPRESSION: No acute findings. CRITICAL RESULT: No. COMMUNICATION: Per this written report. By electronically signing this report, I, the attending physician, attestthat I have personally reviewed the images/data for the aboveexamination(s) and agree with the final edited report. Drafted by Dwight Mensah MD on 02/12/2025 10:42 AM Final report signed by Ana Paula Polk MD on 02/12/2025 11:15 AM Kemar Reddy MD IMG XR PROCEDURES Final Resu lt * HIV 1 & 2 Antibody/Antigen Screen (05/06/2023 9:46 AM EDT) [facility] [address] HIV 1 & 2 Antibody/Antigen Screen Non Reactive Non Reactive 05/06/2023 2:01 PM EDT [facility] Comment:Screening for HIV 1 & 2 antibodies, and P24 antigen is NONREACTIVE. No confirmatory testing is required. Blood Venous blood specimen / Unknown Venipuncture / Unknown 05/06/2023 9:46 AM EDT 05/06/2023 1:04 PM EDT Ileana Wright MD LAB BLOOD ORDERABLES Fin al Result Performing Organization Address City/[facility]/ZIP Co de Phone Number [facility] [address] [place] [address] * Hepatitis C Antibody (05/06/2023 9:46 AM EDT) [facility] [address] Hepatitis C Antibody Negative Negative 05/06/2023 2:01 PM EDT [facility] Blood Venous blood specimen / Unknown Venipuncture / Unknown 05/06/2023 9:46 AM EDT 05/06/2023 1:04 PM EDT Ileana Wright MD LAB BLOOD ORDERABLES Fin al Result Performing Organization Address City/[facility] Co de Phone Number [facility] [address] [place] [address] from Last 3 Months or Most Recently Relevant to Health Maintenance Additional Health Concerns Active Problems Noted Date Diagnosed Date CPM S22 PP LABOR (OBSTETRICS) 05/06/2023 Insurance [facility] MEDICAID Advance Directives * Full Code (Latest Code Status on File) Date Activated Date Inactivated Comments 01/19/2025 3:11 PM 01/22/2025 1:22 PM Care Teams Ui Lead Developer Relationship Specialty Start Date End Date Savanah Delgado PA [address] [place] [address] PCP - General 05/06/23
--- OUTSIDE RECORDS SUMMARY | 2025-05-12 17:22 | XMS_ITS | Encounter Summary ---
Author Organization [facility] Address [address] [place] [address] Care Team Providers Care Manager Customs Name Role Phone Savanah Delgado Primary Care Provider [phone] Encounter Details Date Type Department Care Team (Late Contact Info) Description 04/28/2023 Orders Only External Location [address] [place] [phone] Provider, External Social History Tobacco Use Types Packs/Day Years Used Date Smoking Tobacco: Passive Smo ke Exposure - Never Smoker Comments Unknown Sex and Gender Information Value Date Recorded Sex Assigned at Not on file Legal Sex Female 8:30 PM EDT Gender Identity Not on file Sexual Orientation Not on file documented as of this encounter Plan of Treatment Upcoming Encounters Date Type Department Care Team (Late Contact Info) Description 07/25/2025 2:45 PM EDT Office Visit Obstetrics & Gynecology [address] [place] [address] Ileana Wright MD [address] [place] [address] documented as of this encounter Procedures Procedure Name Priority Date/Time Associated Diagnosis Comments US OUTSIDE IMAGES 04/28/2023 1:24 AM EDT documented in this encounter Results * US OUTSIDE IMAGES (04/28/2023 1:24 AM EDT) Anatomical Region Laterality Modality Ultrasound 04/28/2023 1:24 AM EDT us External Provider IMG US PROCEDURES Final Result documented in this encounter Visit Diagnoses Not on filedocumented in this encounter Care Teams Manager Customs Relationship Specialty Start Date End Date Savanah Delgado PA [address] [place] [address] PCP - General 05/06/23 documented as of this encounter
--- OUTSIDE RECORDS SUMMARY | 2025-05-12 17:22 | XMS_ITS | Clinical Summary ---
Author Organization [facility] Address [address] [place] [address] Care Team Providers Care Director Merit System Name Role Phone Provider, No Known Primary Care Provider Unavail able Allergies Active Allergy Reactions Criticality Noted Date Comments Bee Venom Anaphylaxis High 01/17/2021 Wasp Venom Anaphylaxis High 01/17/2021 Medications ondansetron (ZOFRAN) 4 MG tablet Take 1 tablet by mouth Every 6-8 Hours for post operative nausea 30 tablet 01/17/2021 2:10 PM EDT 1 Active metFORMIN (GLUCOPHAGE) 500 MG tablet Take 500 mg by mouth Daily. Active cholecalciferol (VITAMIN D3) 25 MCG (1000 UT) tablet Take 1,000 Units by mouth Daily. Vitamin D3 Active Ergocalciferol (VITAMIN D2 PO) Take 1.25 mg by mouth. Active albuterol sulfate HFA 108 (90 Base) MCG/ACT inhaler Inhale 2 puffs Every 4 (Four) Hours As Needed for Wheezing. Active oxyCODONE (ROXICODONE) 5 MG immediate release tablet Take 1-2 tablets by mouth Every 4-6 Hours As Needed for post op pain 25 tablet 01/20/2021 3:44 PM EDT 1 Active Active Problems Problem Noted Date Diagnosed Date Right shoulder pain 01/20/2021 Social History Tobacco Use Types Packs/Day Years Used Date Smoking Tobacco: Every Day Cigarettes Smokeless Tobacco: Never Alcohol Use Standard Drinks/Week Comments Not Currently 0 (1 standard drink = 0.6 oz pur e alcohol) AUDIT-C Answer Date Recorded Q1: How often do you have a drink containing alc ohol? Never 01/20/2021 Average Number of Drinks Not on file 021 Frequency of Binge Drinking Not on file 02/2021 Abuse Screen Answer Date Recorded Unsafe at Home or Work/School Not on file Feels Threatened by Someone? Not on file 07/2023 Does Anyone Keep You from Co ntacting Others or Doint Things Outside the Home? Not on file 07/27/2023 Physical Sign of Abuse Present Not on file 1 Housing Stability Answer Date Recorded Current Living Arrangements Not on file 07/18 Potentially Unsafe Housing Conditions Not on shaji e 07/27/2023 Family and Community Support Answer Yoel e Recorded Help with Day-to-Day Activities Not on file 07/27/2023 Lonely or Isolated Not on file 07/27/2023 Employment Answer Date Recorded Do you want help finding or keeping work or a irene b? Not on file 07/27/2023 Disabilities Answer Date Recorded Concentrating, Remembering, or Making Decisions Difficulty Not on file 07/27/2023 Doing Errands Independently Difficulty Not on fi le 07/27/2023 Education Answer Date Recorded Help with school or training? Not on file Preferred Language Not on file 07/27/2023 Comments No Sex and Gender Information Value Date Recorded Sex Assigned at Not on file Legal Sex Female 10:36 AM EST Gender Identity Not on file Sexual Orientation Not on file Last Filed Vital Signs Vital Sign Reading Time Taken Comments Blood Pressure 112/70 01/20/2021 4:00 PM EDT Pulse 66 01/20/2021 4:00 PM EDT Temperature 36.3 C (97.4 F) 01/20/2021 2:32 PM EDT Respiratory Rate 16 01/20/2021 4:00 PM EDT Oxygen Saturation 98% 01/20/2021 4:00 PM EDT Inhaled Oxygen Concentration - - Weight 95.7 kg (211 lb) 01/20/2021 9:13 AM EDT Height 170.2 cm (5' 7 ) 01/20/2021 9:13 AM EDT Body Mass Index 33.05 01/20/2021 9:13 AM EDT Plan of Treatment Health Maintenance Due Date Last Done Comments Annual Gynecologic Pelvic an d Breast Exam 2000 HPV VACCINES (1 - 3-dose series) 2015 ANNUAL PHYSICAL 01/17/2021 HEPATITIS C SCREENING 01/17/2021 COVID-19 Vaccine ( - 2023-2 5 season) 2024 INFLUENZA VACCINE 07/18/2025 TDAP/TD VACCINES (2 - Td or Tdap) 05/20/2027 017 MENINGOCOCCAL B VACCINE Aged Out No l onger eligible based on patient's age to complete this topic Pneumococcal Vaccine 0-49 Aged Out No longer eligible based on patient's age to complete this topic Medical Devices Implanted Type Area Fountain Operator Device Identifier Shelf Expiration Date Model / Serial / Lot Implant Implanted:Qt y: 4 Implant Description:Left elbow pins. Sys Joselss Ac Dogbone/Butn Imp - [id number] Implanted:Qt y: 1 on 01/20/2021 by Daniel Li MD at [facility] Implant Right: Shoulder ARTHREX [id number] 09/16/2025 [id number] / / [id number] Sut Fw 3wr 38in .5cir Cut Ndl 48m - [id number] Implanted:Qt y: 1 on 01/20/2021 by Daniel Li MD at [facility] Implant Right: Shoulder ARTHREX 10/17/2023 [id number] / / Tndn Ant Tib Flxigrft Grt/Than 230x7.5mm Cust - [id number] - [id number] Implanted:Qt y: 1 on 01/20/2021 by Daniel Li MD at [facility] Implant Right: Shoulder [facility] [id number] 05/22/2023 FANTTIBT / [id number] / N/A Sut Fw 3wr 38in .5cir Cut Ndl 48m - [id number] Implanted:Qt y: 1 on 01/20/2021 by Daniel Li MD at [facility] Implant Right: Shoulder ARTHREX 10/17/2023 [id number] / / Sut Fibertape Fw 2mm 54in Silverio [id number] - [id number] Implanted:Qt y: 2 on 01/20/2021 by Daniel Li MD at [facility] Implant Right: Shoulder ARTHREX [id number] / / [place] [place] [address] Care Teams Director Merit System Relationship Specialty Start Date End Date Provider, No Known [facility] [place] [address] PCP - General 12/30/20
--- OUTSIDE RECORDS SUMMARY | 2025-05-12 17:22 | XMS_ITS | Encounter Summary ---
Author Organization [facility] Address [address] [id number] Care Team Providers Care Balling Machine Operator Name Role Phone Savanah Delgado Primary Care Provider [phone] Encounter Details Date Type Department Care Team (Late st Contact Info) Description 12/25/2024 Lab Requisition [facility] [address] [place] [address] Kemar Reddy MD [address] [facility] [address] [place] [address] Enlarged lymph nodes, unspecified Social History Tobacco Use Types Packs/Day Years Used Date Smoking Tobacco: Former Cigarettes 0.5 6 2 - 2021 Passive Smoke Exposure: Yes Smokeless Tobacco: Former Snuff Quit: 07/2022 Comments:I currently use a v ape Alcohol Use Standard Drinks/Week Comments Not Currently 3 (1 standard drink = 0.6 oz pur e alcohol) PHQ-2 Answer Date Recorded Patient Health Questionnaire-2 Score 0 11/08/2024 [place] Depression Scale Answer Date Recorded [place] Depression Scale Total 8 12/20/2023 The thought [...] Visit Obstetrics & Gynecology [address] [place] [address] Ileana Wright MD [address] [place] [address] documented as of this encounter Goals Goal Patient Goal Type Associated Problems Recent Progress Patient-Stated? Author Delayed Delivery Care Plan CPM S22 PP LABOR (OBSTETRICS) No Open Scheduling, Background documented as of this encounter Procedures Procedure Name Priority Date/Time Associated Diagnosis Comments CYTOLOGY CONSULT Routine 12/25/2024 10:3 8 AM EDT Enlarged lymph nodes, unspecified documented in this encounter Results * Cytology Consult (12/25/2024 10:38 AM EDT) Case Report Cytology Case: [id number] Authorizing Provider: Kemar Reddy MD Collected: 12/25/2024 1038 Ordering Location: [facility] Lab Received: 12/25/2024 1038 Pathologist: Fernanda Downs MD Specimen: Lymph Node, [id number] 12/27/2024 1:48 PM EDT [facility] Final Diagnosis OUTSIDE SLIDES LABELED [id number], COLLECTED 12/15/24: A. LYMPH NODE, STATION 4R, FNA: -NO EVIDENCE OF MALIGNANCY. -LYMPHOID TISSUE. B. LYMPH NODE, STATION 7, FNA: -NO EVIDENCE OF MALIGNANCY. -LYMPHOID TISSUE WITH NECROSIS AND POORLY-FORMED GRANULOMAS. -GMS STAIN NEGATIVE FOR FUNGI. -AFB STAIN NONCONTRIBUTORY DUE TO HIGH BACKGROUND STAINING. C. LYMPH NODE, STATION 10R, FNA: -NO EVIDENCE OF MALIGNANCY. -LYMPHOID TISSUE. 12/27/2024 1:48 PM EDT [facility] at 1348 EDT Comment By report, no immunophenotypic abnormalities are found by flow cytometry. Clinical correlation is suggested. 12/27/2024 1:48 PM EDT [facility] Clinical Information R59.9 - Enlarged lymph nodes, unspecified [ICD-10-CM] 12/27/2024 1:48 PM EDT [facility] Gross Description A. [id number] Received along with a corresponding pathology report from [facility] are 8 slides labeled outside case: [id number] collected on 12/15/2024. 12/27/2024 1:48 PM EDT [facility] Fine Needle Aspirate Lymph node specimen / Unknown 12/25/2024 10:38 AM EDT 12/25/2024 10:38 AM EDT us Kemar Reddy MD LAB PATHOLOGY ORDERABLES Fin al Result [facility] [address] [place] [address] documented in this encounter Visit Diagnoses Diagnosis Enlarged lymph nodes, unspecified documented in this encounter Additional Health Concerns Active Problems Noted Date Diagnosed Date CPM S22 PP LABOR (OBSTETRICS) 05/06/2023 Assessment Noted Time PHQ-9 Depression Total Score: 0 11/08/19 25 2:57 PM EST A fall risk assessment has been complete d for the patient 12/25/2024 11:30 AM EDT A Body Mass Index follow-up plan has been documented for the patient 12/26/2024 8:19 AM EDT documented as of this encounter Care Teams Balling Machine Operator Relationship Specialty Start Date End Date Savanah Delgado PA [address] [place] [address] PCP - General 05/06/23 documented as of this encounter
--- OUTSIDE RECORDS SUMMARY | 2025-05-12 17:22 | XMS_ITS | Encounter Summary ---
Author Organization [facility] Address [address] [place] [address] Care Team Providers Care Relief Charge Nurse Name Role Phone Savanah Delgado Primary Care Provider [phone] Encounter Details Date Type Department Care Team (Latest Contact Info) Description 05/09/2025 Travel Social History Tobacco Use Types Packs/Day Years [...] things needed for daily living? No 01/22/2025 [place] Depression Scale Answer Date Recorded [place] Depression Scale Total 8 12/20/2023 The thought [...] any time in the past 12 m [facility], were you homeless or living in a residential (including now)? No 01/22/2025 Utilities Answer Date [...] Visit Obstetrics & Gynecology [address] [place] [address] Ileana Wright MD [address] [place] [address] documented as of this encounter Goals Goal Patient Goal Type Associated Problems Recent Progress Patient-Stated? Author Delayed Delivery Care Plan CPM S22 PP LABOR (OBSTETRICS) No Open Scheduling, Background documented as of this encounter Visit Diagnoses Not on filedocumented [...] documented as of this encounter Care Teams Relief Charge Nurse Relationship Specialty Start Date End Date Savanah Delgado PA [address] [place] [address] PCP - General 05/06/23 documented as of this encounter
--- OUTSIDE RECORDS SUMMARY | 2025-05-12 17:22 | XMS_ITS | Encounter Summary ---
Author Organization [facility] Address [address] [place] [address] Care Team Providers Care Orthodontic Technician Name Role Phone Savanah Delgado Primary Care Provider [phone] Encounter Details Date Type Department Care Team (Late st Contact Info) Description 10/21/2023 Orders Only External Location [address] [place] [phone] Provider, External Social History Tobacco Use Types Packs/Day Years Used Date Smoking Tobacco: Never Passive Smoke Exposure: Yes Smokeless Tobacco: Never Alcohol Use Standard Drinks/Week Comments Never 0 (1 standard drink = 0.6 oz pur e alcohol) PHQ-2 Answer Date Recorded Patient Health Questionnaire-2 Score 0 10/06/2023 PHQ-9 Answer Date Recorded Patient Health Questionnaire-9 Score 12 09/22/2023 PHQ-2A Answer Date Recorded Patient Health Questionnaire-2 Score 1 09/22/2023 Comments Yes Sex and Gender Information Value Date Recorded Sex Assigned at Not on file Legal Sex Female 8:30 PM EDT Gender Identity Not on file Sexual Orientation Not on file documented as of this encounter Plan of Treatment Upcoming Encounters Date Type Department Care Team (Late st Contact Info) Description 07/25/2025 2:45 PM EDT Office Visit Obstetrics & Gynecology [address] [place] [address] Ileana Wright MD [address] [place] [address] documented as of this encounter Goals Goal Patient Goal Type Associated Problems Recent Progress Patient-Stated? Author Delayed Delivery Care Plan CPM S22 PP LABOR (OBSTETRICS) No Open Scheduling, Background documented as of this encounter Procedures Procedure Name Priority Date/Time Associated Diagnosis Comments US OUTSIDE IMAGES 10/21/2023 3:54 PM EST documented in this encounter Results * US OUTSIDE IMAGES (10/21/2023 3:54 PM EST) Anatomical Region Laterality Modality Ultrasound 10/21/2023 3:54 PM EST us External Provider IMG US PROCEDURES Final Result documented in this encounter Visit Diagnoses Not on filedocumented in this encounter Additional Health Concerns Active Problems Noted Date Diagnosed Date CPM S22 PP LABOR (OBSTETRICS) 05/06/2023 Assessment Noted Time PHQ-9 Depression Total Score: 12 023 11:12 AM EST A fall risk assessment has been complete d for the patient 10/06/2023 2:17 PM EST A Body Mass Index follow-up plan has been documented for the patient 10/20/2023 12:09 PM EST documented as of this encounter Care Teams Orthodontic Technician Relationship Specialty Start Date End Date Savanah Delgado PA [address] [place] [address] PCP - General 05/06/23 documented as of this encounter
--- OUTSIDE RECORDS SUMMARY | 2025-05-12 17:22 | XMS_ITS | Encounter Summary ---
Author Organization [facility] Address [address] [place] [address] Care Team Providers Care Fashion Supervisor Name Role Phone Savanah Delgado Primary Care Provider [phone] Encounter Details Date Type Department Care Team (Late st Contact Info) Description 10/19/2024 Orders Only External Location [address] [place] [phone] Provider, External Social History Tobacco Use Types Packs/Day Years Used Date Smoking Tobacco: Former Cigarettes 0.5 6 2 016 - 2021 Passive Smoke Exposure: Yes Smokeless Tobacco: Former Snuff Quit: 07/2022 Comments:I currently use a v ape Alcohol Use Standard Drinks/Week Comments Not Currently 3 (1 standard drink = 0.6 oz pur e alcohol) PHQ-2 Answer Date Recorded Patient Health Questionnaire-2 Score 1 12/20/2023 [place] Depression Scale Answer Date Recorded [place] Depression Scale Total 8 12/20/2023 The thought of harming myself has occurred to me . Never 12/20/2023 PHQ-9 Answer Date Recorded Patient Health Questionnaire-9 Score 2 12/20/2023 PHQ-2A Answer Date Recorded Patient Health Questionnaire-2 [...] PM EDT Office Visit Obstetrics & Gynecology [address] [place] [address] Ileana Wright MD [address] [place] [address] documented as of this encounter Goals Goal Patient Goal Type Associated Problems Recent Progress Patient-Stated? Author Delayed Delivery Care Plan CPM S22 PP LABOR (OBSTETRICS) No Open Scheduling, Background documented as of this encounter Procedures Procedure Name Priority Date/Time Associated Diagnosis Comments XR OUTSIDE IMAGES 10/19/2024 4:26 PM EST documented in this encounter Results * XR OUTSIDE IMAGES (10/19/2024 4:26 PM EST) Anatomical Region Laterality Modality Radiographic Najma ging 10/19/2024 4:26 PM EST us External Provider IMG XR PROCEDURES Final Result documented in this encounter Visit Diagnoses Not on filedocumented in this encounter Additional Health Concerns Active Problems Noted Date Diagnosed Date CPM S22 PP LABOR (OBSTETRICS) 05/06/2023 Assessment Noted Time PHQ-9 Depression Total Score: 2 12/20/19 12:14 PM EST A fall risk assessment has been complete d for the patient 12/20/2023 12:17 PM EST A Body Mass Index follow-up plan has been documented for the patient 08/23/2024 11:38 AM EST documented as of this encounter Care Teams Fashion Supervisor Relationship Specialty Start Date End Date Savanah Delgado PA [address] [place] [address] PCP - General 05/06/23 documented as of this encounter
--- NOTE | 2025-05-12 17:32 | ECG_ITS ---
APPROVED REPORT Exam: Resting ECG HR:101 bpm ECG Measurements Heart Rate 101 AXES TX 130 P 55 QRSd 106 QRS 78 QT 340 T 53 QTc 398 Conclusion SINUS TACHYCARDIA POSSIBLE RIGHT VENTRICULAR CONDUCTION DELAY [RSR (QR) IN V1/V2] ABNORMAL RHYTHM ECG Electronically signed by : MARIA R WILSON, 05/13/2025 07:26:07
[2025-05-12 18:19] LABS: Hematocrit 40.6 % (37.0-47.0); Hemoglobin 12.8 g/dL (12.2-16.2); Immature Granulocytes % 0.2 %; Mean Corpuscular HGB Conc 31.5 g/dL (31.8-35.4); Mean Corpuscular Hemoglobin 23.7 pg (27.0-31.2); Mean Corpuscular Volume 75.3 fl (81-99); Nucleated Red Blood Cells % 0 %; Platelet Count 280 K/mm3 (142-424); Red Blood Count 5.39 M/mm3 (4.20-5.40); Red Cell Distribution Width-SD 40.2 fL; White Blood Count 9.3 K/mm3 (4.8-10.8)
[2025-05-12] MEDS: KETOROLAC 30MG/ML VIAL 15 MG IV (18:24)
[2025-05-12 18:27] LABS: Alanine Aminotransferase 22 U/L (12-78); Albumin Level 4.2 g/dl (3.5-5.0); Alkaline Phosphatase 79 U/L (38-126); Aspartate Amino Transferase 29 U/L (14-36); Bilirubin,Total 0.2 mg/dl (0.2-1.3); Calcium 9.6 mg/dl (8.4-10.2); Glucose 107 mg/dl (74-100); Potassium 4.0 mmoL/L (3.5-5.1); Sodium 140 mmol/L (136-145)
[2025-05-12] MEDS: PROCHLORPERAZINE 10MG/2ML VIAL 10 MG IV (18:27)
[2025-05-12 18:28] LABS: Albumin/Globulin Ratio 1.2 (1.1-1.8); Anion Gap 15.0 mEq/L (5-15); Blood Urea Nitrogen 17 mg/dl (7-17); Carbon Dioxide 23 mmol/L (22.0-30.0); Chloride 106 mmol/L (98-107); Creatinine Clearance Estimated 204 mL/min (50-200); Creatinine,Serum 0.70 mg/dl (0.52-1.04); Estimated Glomerular Filt Rate 103 ml/min (>60); GFR (African American) 124 ML/MIN (>60); Globulin 3.6 g/dL (1.3-3.2); Total Protein,Serum 7.8 g/dl (6.3-8.2)
[2025-05-12 18:33] LABS: HCG Qualitative, Serum Negative (Negative)
[2025-05-12 18:47] LABS: Troponin I < 0.01 ng/ml (0.00-0.034)
[2025-05-12 18:52] LABS: NT Pro Brain Natriuretic Pep. < 20.0 pg/mL (0-125); T4 (Thyroxine) 7.7 ug/dl (5.53-11.0)
[2025-05-12 18:55] LABS: D-Dimer 0.67 ug/mL (0.0-0.5)
--- NOTE | 2025-05-12 18:57 | CT_ITS ---
PROCEDURE INFORMATION: Exam: CTA Chest With Contrast Exam date and time: 05/12/2025 7:21 PM Age: 24 years old Clinical indication: Shortness of breath; Additional info: Shortness of air, tachycardia, elevated d-dimer TECHNIQUE: Imaging protocol: Computed tomographic angiography of the chest with contrast. Exam focused on the arteries. 3D rendering (Not supervised by radiologist): MIP and/or 3D reconstructed images were created by the technologist. Radiation optimization: All CT scans at this facility use at least one of these dose optimization techniques: automated exposure control; mA and/or kV adjustment per patient size (includes targeted exams where dose is matched to clinical indication); or iterative reconstruction. Contrast material: ISOVUE; Contrast volume: 70 ml; Contrast route: INTRAVENOUS (IV); COMPARISON: CT ANGIO CHEST 01/03/2025 2:43 PM FINDINGS: Pulmonary arteries: No pulmonary emboli. Aorta: Unremarkable. No aortic aneurysm. No aortic dissection. Lungs: Unremarkable. No consolidation. No masses. Pleural spaces: Unremarkable. No pneumothorax. No pleural effusion. Heart: Unremarkable. No cardiomegaly. No pericardial effusion. Lymph nodes: Unremarkable. No enlarged lymph nodes. Bones/joints: Unremarkable. No acute fracture. Soft tissues: Unremarkable. IMPRESSION: No acute findings.
--- NOTE | 2025-05-12 18:58 | CT_ITS ---
PROCEDURE INFORMATION: Exam: CT Head Without Contrast Exam date and time: 05/12/2025 7:13 PM Age: 24 years old Clinical indication: Pain; Headache; Additional info: Headache, blurry vision bilaterally TECHNIQUE: Imaging protocol: Computed tomography of the head without contrast. Radiation optimization: All CT scans at this facility use at least one of these dose optimization techniques: automated exposure control; mA and/or kV adjustment per patient size (includes targeted exams where dose is matched to clinical indication); or iterative reconstruction. COMPARISON: No relevant prior studies available. FINDINGS: Brain: No hemorrhage. Unremarkable white matter. No mass effect. Cerebral ventricles: No ventriculomegaly. Paranasal sinuses: Visualized sinuses are unremarkable. No fluid levels. Mastoid air cells: Visualized mastoid air cells are well aerated. Bones: Unremarkable. No acute fracture. Soft tissues: Unremarkable. IMPRESSION: No acute intracranial abnormality.
[2025-05-12 19:05] LABS: Thyroid Stimulating Hormone 2.08 uIU/mL (0.465-4.68)
[2025-05-12] MEDS: 0.9 % SODIUM CHLORIDE 50 ML VIAL IV (19:21)
[2025-05-12] MEDS: SODIUM CHLORIDE 0.9% 10ML SYR (RAD ONLY) 10 ML IV (19:21)
[2025-05-12] MEDS: IOPAMIDOL-370 (76%);100ML BOTTLE 70 ML IV (19:21)
[2025-05-12 19:37] VITALS: BP 107/76; PULSE 89; RESP 20; TEMP 36.6; O2SAT 100
--- NOTE | 2025-05-12 19:38 | PC.NURSE ---
IV discontinued. Catheter tip intact. Bleeding controlled.
== END 2025-05-12 19:39 | disposition left against medical advice (07) ==
PROVIDERS: Physician Assistant; Emergency Provider Emergency Medicine; PCP Nurse Practitioner Family
DX: R00.2 Palpitations (principal); G43.909 Migraine, unspecified, not intractable, without status migrainosus; H53.8 Other visual disturbances; R03.0 Elevated blood-pressure reading, without diagnosis of hypertension
CPT/HCPCS: 70450; 71275; 80053; 83880; 84436; 84443; 84484; 84703; 85025; 85378; 93005; 96374; 96375; 99285; J0780; J1200; J1885; Q9967

== ENCOUNTER 2025-10-08 19:36 | Emergency (ER) | payer OTHER, SELFPAY ==
[2025-10-08] VITALS (13 sets, daily range): BP systolic 116–146; BP diastolic 64–84; PULSE 71–115; RESP 16–18; TEMP 36.6; O2SAT 96–100; BMI 42.9
--- NOTE | 2025-10-08 19:46 | HMH.EDGENADL ---
Discharge Plan Disposition Patient Disposition: Home, Self-Care Condition: Good Prescriptions Prescriptions: No Action Nurtec ODT 75 mg tablet,disintegrating 75 mg PO ONCE PRN (Reason: Migraines) Qty: 8 11RF propranolol 40 mg tablet 40 mg PO BID MDD 80 mg Qty: 60 5RF albuterol sulfate 90 mcg/actuation HFA aerosol inhaler 2 inh IH Q6HP PRN (Reason: Shortness Of Breath) 30 Days Qty: 8.5 5RF (DME) blood pressure monitor Kit See Rx Instructions .ROUTE .MEDSUPPLY Qty: 1 0RF Rx Instructions: As directed ipratropium-albuterol 0.5 mg-3 mg(2.5 mg base)/3 mL solution for nebulization 3 ml inhalation QID PRN (Reason: shortness of breath or wheezing) 90 Days Qty: 270 3RF acetaminophen [Pain Relief (acetaminophen)] 325 mg tablet 650 mg PO Q6H Qty: 120 0RF medroxyprogesterone [Depo-Provera] 150 mg/mL Suspension See Rx Instructions .ROUTE .COMPLEX Rx Instructions: 300 mg intramuscularly Referrals Follow up/Referrals: Dontae Mann APRN [Primary Care Provider, Family Practice] - See instructions Kenyatta Nayak MD [Staff Physician, Neurology] - See instructions Activity Restrictions/Add. Instructions Additional Instructions/Restrictions: If you continue to have recurrent headaches you need to follow-up with neurology. Return to the Emergency Department for any acute or worsening symptoms. Clinical Impressions Clinical Impression: Migraine Instructions Patient Instructions: DI for Headache Print Language Print Language: Pakistani Discharge ED Provider: Miranda Godoy Adult HPI General Chief complaint: Headache Stated complaint: Migraine Time Seen by Provider: 10/08/25 19:45 History of Present Illness HPI narrative: Patient is a 24-year-old female with a past medical history of migraines who presents to the emergency department with a migraine that started 6 days ago. States that she had another migraine this month but they are not frequent. Patient states that sometimes she will have headaches for weeks at a time. Patient states that her headache was gradual onset not acute onset. Patient states that she will intermittently have photophobia and sound sensitivity. Patient otherwise does not have any other vision disturbances. Patient denies and nausea or vomiting. Patient denies any diarrhea. Patient has not had any fevers or upper respiratory symptoms. Patient denies any neck pain or inability to move her neck. Patient denies any recent travel. Patient is not on any hormone medications. Patient does not take an abortive medication. Related Data Home Medications ?Medication ?Instructions ?Recorded ?Confirmed medroxyprogesterone 150 mg/mL See Rx Instructions .Route .COMPLEX 12/14/24 05/12/25 intramuscular suspension (Depo-Provera) Previous Rx's ?Medication ?Instructions ?Recorded albuterol sulfate 90 mcg/actuation 2 inh inhalation Q6HP PRN 05/07/23 aerosol inhaler Shortness Of Breath 30 days #8.5 grams blood pressure monitor #1 ea 12/21/23 acetaminophen 325 mg tablet (Pain 650 mg (2 x 325 mg) PO Q6H #120 12/02/24 Relief (acetaminophen)) tabs ipratropium 0.5 mg-albuterol 3 mg 3 ml inhalation QID PRN shortness 12/15/24 (2.5 mg base)/3 mL nebulization of breath or wheezing 90 days #270 soln mL propranolol 40 mg tablet 40 mg PO BID Tachycardia, migraine 02/06/25 prevention #60 tabs rimegepant 75 mg disintegrating 75 mg PO ONCE PRN Migraines #8 tabs 02/06/25 tablet (Nurtec ODT) Allergies Allergy/AdvReac Type Severity Reaction Status Date / Time tomato (From TOMATOES Allergy Unknown UTI Verified 05/12/25 16:20 (FOOD/DRUG)) azithromycin Allergy seizure Verified 05/12/25 16:20 activity dexamethasone Allergy abnormal Verified 05/12/25 16:20 breathing pattern and syncope venom-wasp Allergy Anaphylaxis Verified 05/12/25 16:20 bee venom protein (honey bee) AdvReac Severe Anaphylaxis Verified 05/12/25 16:20 [facility] Disclaimer: The information contained in this section may have been updated after the patient was seen, as this information can be updated by other users. Medical History , SECURITY SYSTEMS SALES REPRESENTATIVE) History of sleep apnea History of atypical migraine History of depression Dyspnea on exertion Mediastinal lymphadenopathy Close follow-up with pulmonology, hematology oncology at [facility] and thoracic surgery status post biopsy 01/19/2025, (negative for malignancy, caseating granulomas suspected histoplasmosis). Hilar lymphadenopathy Asthma Tachycardia Anxiety Irregular menses Chest pain Surgical History , SECURITY SYSTEMS SALES REPRESENTATIVE) History of shoulder surgery History of elbow surgery Family History , SECURITY SYSTEMS SALES REPRESENTATIVE) Substance abuse Diabetes FHx: mental illness Cancer Hypertension Asthma Social History Smoking Status: Current every day smoker tobacco type: smokeless tobacco alcohol intake: current alcohol intake frequency: a few times a month substance use type: denies use current occupational status: employed Travel in the last 8 weeks?: None household members: family housing: house marital status: Have you lived/traveled outside US in past 30 days?: No Contact w/someone who lives/traveled outside US past 30 days?: No Exposure to someone with infectious disease in past 14 days?: No Do you have a fever (greater than 100.4 F or 38 C)?: No Have you tested positive for COVID-19?: No Exposed to someone with COVID-19 in past 14 days?: No Do you have a sore throat?: No Do you have a cough?: No Do you have any weakness?: No Do you have any diarrhea?: No Are you experiencing any unusual bleeding?: No Do you have any muscle aches/pain?: No Do you have any abdominal pain?: No Are you experiencing loss of taste or smell?: No Other Medical History Have you received the Flu Vaccine for this season: No Have you received the Pneumonia Vaccine: No ROS Obtained: Yes All systems reviewed & no additional complaints except as documented and Yes Systems reviewed as appropriate & no additional complaints except as documented Physical Exam General General appearance: alert and in no apparent distress Head Head exam: atraumatic, normocephalic and normal inspection Eye Eye exam: Present normal appearance, PERRL and EOMI; Absent scleral icterus ENT ENT exam: Present normal exam and normal external ear exam Neck Neck exam: Present normal inspection and full ROM Chest Chest inspection: Present normal inspection and symmetric chest wall rise Respiratory Respiratory exam: Present normal lung sounds bilaterally; Absent respiratory distress or wheezes Cardiovascular Cardiovascular exam: Present regular rate, normal rhythm and normal heart sounds Abdominal Exam Abdominal exam: Present soft and distention; Absent tenderness, guarding or rebound Extremities Exam Extremities exam: Present normal inspection and full ROM Back Exam Back exam: Present normal inspection and full ROM Neurological Exam Neurological exam: Present alert, oriented X3, CN II-XII intact, normal gait and reflexes normal; Absent motor sensory deficit Psychiatric Psychiatric exam: Present normal affect and normal mood Skin Skin exam: Present warm and dry Medical Decision Making Medical Records Medical records reviewed: Yes I reviewed the patient's medical records. Screening: Per USPSTF and CDC recommendations, given the prevalence of disease in our region, it is our hospital?s policy to screen for HIV and viral Hepatitis for all patients aged 18 and over and those with ongoing risk factors. Сергей Inquiry Pt receiving controlled substance: No Vital Signs: 10/08/25 19:49 10/08/25 20:00 10/08/25 20:15 Temperature 97.9 F Temperature Source Oral Pulse Rate 99 H 95 H Pulse Rate [Left] 115 H Respiratory Rate 18 Blood Pressure Blood Pressure [Right Arm] 146/83 H Blood Pressure Mean Blood Pressure Mean [Right Arm] 104 Blood Pressure Source Blood Pressure Source [Right Arm] Automatic Cuff Blood Pressure Position Blood Pressure Position [Right Arm] Sitting 02 Sat by Pulse Oximetry 99 98 96 Oxygen Delivery Method Room Air Room Air Room Air 10/08/25 20:19 10/08/25 20:19 10/08/25 20:30 Temperature Temperature Source Pulse Rate 90 109 H Pulse Rate [Left] Respiratory Rate Blood Pressure 126/81 Blood Pressure [Right Arm] Blood Pressure Mean 89 Blood Pressure Mean [Right Arm] Blood Pressure Source Blood Pressure Source [Right Arm] Blood Pressure Position Blood Pressure Position [Right Arm] 02 Sat by Pulse Oximetry 98 98 Oxygen Delivery Method Room Air Room Air 10/08/25 20:30 10/08/25 20:45 10/08/25 21:00 Temperature Temperature Source Pulse Rate 86 71 Pulse Rate [Left] Respiratory Rate Blood Pressure 133/84 Blood Pressure [Right Arm] Blood Pressure Mean 93 Blood Pressure Mean [Right Arm] Blood Pressure Source Blood Pressure Source [Right Arm] Blood Pressure Position Blood Pressure Position [Right Arm] 02 Sat by Pulse Oximetry 100 100 Oxygen Delivery Method Room Air Room Air 10/08/25 21:01 10/08/25 21:01 10/08/25 21:15 Temperature Temperature Source Pulse Rate 72 77 Pulse Rate [Left] Respiratory Rate Blood Pressure 116/64 Blood Pressure [Right Arm] Blood Pressure Mean 81 Blood Pressure Mean [Right Arm] Blood Pressure Source Blood Pressure Source [Right Arm] Blood Pressure Position Blood Pressure Position [Right Arm] 02 Sat by Pulse Oximetry 100 100 Oxygen Delivery Method Room Air Room Air 10/08/25 21:30 10/08/25 21:30 10/08/25 21:45 Temperature Temperature Source Pulse Rate 86 88 Pulse Rate [Left] Respiratory Rate Blood Pressure 120/75 Blood Pressure [Right Arm] Blood Pressure Mean 82 Blood Pressure Mean [Right Arm] Blood Pressure Source Blood Pressure Source [Right Arm] Blood Pressure Position Blood Pressure Position [Right Arm] 02 Sat by Pulse Oximetry 100 100 Oxygen Delivery Method Room Air Room Air 10/08/25 22:00 10/08/25 22:00 10/08/25 23:12 Temperature 97.9 F Temperature Source Pulse Rate 104 H 89 Pulse Rate [Left] Respiratory Rate 16 Blood Pressure 120/69 123/72 Blood Pressure [Right Arm] Blood Pressure Mean 76 Blood Pressure Mean [Right Arm] Blood Pressure Source Automatic Cuff Blood Pressure Source [Right Arm] Blood Pressure Position Sitting Blood Pressure Position [Right Arm] 02 Sat by Pulse Oximetry 100 Oxygen Delivery Method Room Air Room Air Lab Data Lab results reviewed: Yes I reviewed the patient's lab results. Lab Results 10/08/25 20:20: WBC 7.9, RBC 5.06, Hgb 12.2, Hct 38.6, MCV 76.3 L, MCH 24.1 L, MCHC 31.6 L, RDW 14.4, Plt Count 297, MPV 11.1 H, Neut % (Auto) 57.6, Lymph % (Auto) 27.9, [place] % (Auto) 9.4 H, Eos % (Auto) 3.9, Baso % (Auto) 0.9, Neut # (Auto) 4.5, Lymph # (Auto) 2.2, [place] # (Auto) 0.7, Eos # (Auto) 0.3, Baso # (Auto) 0.1, Sodium 139, Potassium 3.6, Chloride 105, Carbon Dioxide 27, Anion Gap 10.6, BUN 17, Creatinine 0.80, Estimated Creat Clear 94, Estimated GFR 88, Est GFR ( Amer) 107, Glucose 111 H, Calcium 8.8, Total Bilirubin 0.3, AST 25, ALT 20, Alkaline Phosphatase 85, Total Protein 7.6, Albumin 4.6, Globulin 3.0, Albumin/Globulin Ratio 1.5, Serum HCG, Qual Negative 10/08/25 20:20 10/08/25 20:20 Orders (Tests/Meds): ED MEDICATIONS Discontinued Medications Generic Name Dose Route Start Last Admin Trade Name Freq PRN Reason Stop Dose Admin Diphenhydramine HCl 12.5 mg 10/08/25 20:03 10/08/25 20:32 Diphenhydramine 50mg/Ml Vial IV 10/08/25 20:04 12.5 mg ONCE ONE Administration Droperidol 2.5 mg 10/08/25 20:03 10/08/25 20:32 Droperidol 5mg/2ml Vial IV 10/08/25 20:04 2.5 mg ONCE ONE Administration Sodium Chloride 1,000 mls @ 999 mls/hr 10/08/25 21:23 10/08/25 23:01 Sod Chlor 0.9% 1000ml Bag IV 10/08/25 22:23 Infused .Q1H1M ONE Infusion Magnesium Sulfate 2 gm in 50 mls @ 50 mls/hr 10/08/25 21:24 10/08/25 23:00 Magnesium Sulfate 2gm/50ml Premix IV 10/08/25 22:23 Infused ONCE ONE Infusion Ketorolac Tromethamine 30 mg 10/08/25 21:23 10/08/25 21:36 Ketorolac 30mg/Ml Vial IV 10/08/25 21:24 30 mg ONCE ONE Administration Oxycodone HCl 5 mg 10/08/25 21:50 Oxycodone 5mg Immediate Release Tablet PO 10/08/25 21:51 ONCE ONE Prochlorperazine Edisylate 10 mg 10/08/25 21:23 10/08/25 21:36 Prochlorperazine 10mg/2ml Vial IV 10/08/25 21:24 10 mg ONCE ONE Administration ORDERS Category Date Time Status CT head/brain wo con Stat Cat Scan 10/08/25 20:03 Completed CBC w/Auto Diff [Complete Blood Count Auto Diff] Stat Lab 10/08/25 20:20 Completed CMP [Comprehensive Metabolic Panel] Stat Lab 10/08/25 20:20 Completed HCG Qualitative, Serum Stat Lab 10/08/25 20:20 Completed Medical Decision Narrative: Patient is a [age]-year-old female with no significant past medical history who presented to the emergency department with concern for headache. Patient states that her headache started about 6 days ago has been constant in nature. Patient reports some light sensitivity and sound sensitivity. Patient denies any other neurologic symptoms. Patient does have a history of migraines. On arrival, patient was hemodynamically stable with unremarkable vital signs. Differential includes but not limited to intracranial process, migraine headache, tension headache, viral syndrome, viral meningitis, amongst others On exam, patient had full range of motion of her neck, patient had full extension and flexion. Did have some tenderness in her trapezius muscles bilaterally. Neurologic exam was otherwise unremarkable. CT head was obtained which showed no acute intracranial pathology. Patient was initially given droperidol Benadryl which mildly resolved her headache. Patient was then given a migraine cocktail with Toradol fluids magnesium and Compazine. On further reassessment, patient reported complete resolution of her headache. Patient CT head did show some mild flattening of the posterior globes which may be seen in idiopathic intracranial hypertension. I did discuss this with the patient. Given that her headache was resolved, patient wished to discharge at this time and patient was sent with outpatient follow-up with neurology. Patient was otherwise discharged home in stable condition return precautions were discussed. Critical Care Critical Care Time Critical Care Time: No
--- OUTSIDE RECORDS SUMMARY | 2025-10-08 19:55 | XMS_ITS | Encounter Summary ---
Author Organization Healthcare Address [address] [place] [address] Care Team Providers Care Adhesive Bandage Machine Operator Name Role Phone Savanah Delgado Primary Care Provider [phone] Encounter Details Date Type Department Care Team (Late st Contact Info) Description 07/18/2025 Telephone Obstetrics & Gynecology [address] [place] [address] Ileana Wright MD [address] [place] [address] Social History Tobacco Use Types Packs/Day Years [...] Date Recorded Patient Health Questionnaire-2 Score 0 07/25/2025 Hunger Vital Sign Answer Date Recorded Within [...] things needed for daily living? No 01/22/2025 [place] Depression Scale Answer Date Recorded [place] Depression Scale Total 8 12/20/2023 The thought [...] any time in the past 12 m [facility], were you homeless or living in a alf (including now)? No 01/22/2025 Utilities Answer Date Recorded In the past 12 months has e [employer], gas, oil, or water company threatened to shut off services in your home? No 01/22/2025 PHQ-2A Answer Date Recorded Patient Health Questionnaire-2 Score 1 09/22/2023 Comments No Sex and Gender Information Value Date Recorded Sex Assigned at Not on file Legal Sex Female 8:30 PM EDT Gender Identity Not on file Sexual Orientation Not on file documented as of this encounter Functional Status * Over the past 2 weeks, how often have you been bothered by any of the following problems? Question Answer Date of Assessment Author Little interest or pleasure in doing things Not at all 07/25/2025 12:02 PM EDT Hayley Garrett RN Feeling down, depressed, or hopeless Not at all 07/25/2025 12:02 PM EDT Hayley Garrett, RN Patient Health Questionnaire -2 Score 0 07/25/2025 12:02 PM EDT Hayley Garrett RN * How difficult have these problems made it for you to do your work, take care of things at home, or get along with other people? Answer Date of Assessment Author Not difficult at all 07/25/2025 12:02 PM EDT OsHayley davis RN documented as of this encounter Miscellaneous Notes * Telephone Encounter - Alysia Weber - 07/18/2025 11:36 AM EDT Clinical Concern/Question Reason for Call: Patient needs to reschedule her 07/25 Annual and Depo appt Best contact number: [phone] (mobile) Optimal time of day to reach caller: ANYTIME Additional comments/information from caller: Not Applicable Note: Please do not reply to this message. Follow-up communication and further actions as a result of this message need to be communicated with the patient directly, if the patient is not active onMyChart. If the patient is active on MyChart, they will receive notification of the communication/outcome via [employer] documented in this encounter Plan of Treatment Upcoming Encounters Date Type Department Care Team (Late Contact Info) Description 10/12/2025 11:45 AM EST Office Visit Obstetrics & Gynecology [address] [place] [address] Alaina Jensen, PLATINUM AND PALLADIUM KETTLE TENDER [address] [place] [address] documented as of this encounter [...] documented as of this encounter Care Teams Adhesive Bandage Machine Operator Relationship Specialty Start Date End Date Savanah Delgado PA [address] [place] [address] PCP - General 05/06/23 documented as of this encounter
--- OUTSIDE RECORDS SUMMARY | 2025-10-08 19:55 | XMS_ITS | Clinical Summary ---
Author Organization [facility] Address [address] [place] [address] Care Team Providers Care Preparation Plant Supervisor Name Role Phone Provider, No Known Primary [...] ANNUAL PHYSICAL 01/17/2021 HEPATITIS C SCREENING 01/17/2021 INFLUENZA VACCINE 05/18/2025 TDAP/TD VACCINES (2 - Td or Tdap) 05/20/2027 017 MENINGOCOCCAL B VACCINE Aged Out No l onger eligible based on patient's age to complete this topic Pneumococcal Vaccine 0-49 Aged Out No longer eligible based on patient's age to complete this topic Medical Devices Implanted Type Area Package Center Supervisor Device Identifier Shelf Expiration Date Model / Serial / Lot Implant Implanted:Qt y: 4 Implant Description:Left elbow pins. Sys Joselss Ac Dogbone/Xin Imp - [id number] Implanted:Qt y: 1 on 01/20/2021 by Daniel Li MD at [facility] Implant Right: Shoulder ARTHREX [id number] 09/16/2025 [id number] / / [id number] Sut Fw 3wr 38in .5cir Cut Ndl 48m - [id number] Implanted:Qt y: 1 on 01/20/2021 by Daniel Li MD at [facility] Implant Right: Shoulder ARTHREX 10/17/2023 [id number] / / Tndn Ant Tib Flxigrft Grt/Than 230x7.5mm Cust - [id number] - [id number] Implanted:Qt y: 1 on 01/20/2021 by Daniel Li MD at [facility] Implant Right: Shoulder [facility] [id number] 05/22/2023 FANTTIBT / [id number] / N/A Sut Fw 3wr 38in .5cir Cut Ndl 48m - [id number] Implanted:Qt y: 1 on 01/20/2021 by Daniel Li MD at [facility] Implant Right: Shoulder ARTHREX 10/17/2023 [id number] / / Sut Fibertape Fw 2mm 54in Silverio [id number] - [id number] Implanted:Qt y: 2 on 01/20/2021 by Daniel Li MD at [facility] Implant Right: Shoulder ARTHREX [id number] / / Insurance [facility] Care Teams Preparation Plant Supervisor Relationship Specialty Start Date End Date Provider, No Known [facility] [place] [address] PCP - General 12/30/20
--- OUTSIDE RECORDS SUMMARY | 2025-10-08 19:55 | XMS_ITS | Encounter Summary ---
Author Organization [facility] Address [address] [place] [address] Care Team Providers Care Sequins Slinger Name Role Phone Savanah Delgado Primary Care Provider [phone] Encounter Details Date Type Department Care Team (Late st Contact Info) Description 12/02/2024 Orders Only External Location [address] [place] [phone] Provider, External Social History Tobacco Use Types [...] Recorded Patient Health Questionnaire-2 Score 0 11/08/2024 [place] Depression Scale Answer Date Recorded [place] Depression Scale Total 8 12/20/2023 The thought [...] Care Team (Late st Contact Info) Description 10/12/2025 11:45 AM EST Office Visit Obstetrics & Gynecology [address] [place] [address] Alaina Jensen, INSIGHTS MANAGER [address] [place] [address] documented as of this encounter [...] documented as of this encounter Care Teams Sequins Slinger Relationship Specialty Start Date End Date Savanah Delgado PA [address] [place] [address] PCP - General 05/06/23 documented as of this encounter
--- OUTSIDE RECORDS SUMMARY | 2025-10-08 19:55 | XMS_ITS | Encounter Summary ---
Author Organization [facility] Address [address] [place] [address] Care Team Providers Care Sort Operations Supervisor Name Role Phone Savanah Delgado Primary Care Provider [phone] Encounter Details Date Type Department Care Team (Late st Contact Info) Description 10/19/2024 Orders Only External Location [address] [place] [phone] Provider, External Social History Tobacco Use Types [...] Recorded Patient Health Questionnaire-2 Score 1 12/20/2023 [place] Depression Scale Answer Date Recorded [place] Depression Scale Total 8 12/20/2023 The thought [...] AM EST Office Visit Obstetrics & Gynecology [address] [place] [address] Alaina Jensen, LEGAL EDITOR [address] [place] [address] documented as of this encounter [...] documented as of this encounter Care Teams Sort Operations Supervisor Relationship Specialty Start Date End Date Savanah Delgado PA [address] [place] [address] PCP - General 05/06/23 documented as of this encounter
--- OUTSIDE RECORDS SUMMARY | 2025-10-08 19:55 | XMS_ITS | Encounter Summary ---
Author Organization [facility] Address [address] [place] [address] Care Team Providers Care Backfiller Name Role Phone Savanah Delgado Primary Care Provider [phone] Encounter Details Date Type Department Care Team (Late st Contact Info) Description 08/09/2025 Results Follow-Up Obstetrics & Gynecology [address] [place] [address] Alaina Jensen, MASS SPECTROMETRY MANAGER [address] [place] [address] Social History Tobacco Use Types [...] things needed for daily living? No 01/22/2025 [place] Depression Scale Answer Date Recorded [place] Depression Scale Total 8 12/20/2023 The thought [...] any time in the past 12 m [facility], were you homeless or living in a detention (including now)? No 01/22/2025 Utilities Answer Date Recorded In the past 12 months has th e [employer] gas, oil, or water [employer] threatened to shut off services in your [...] EST Office Visit Obstetrics & Gynecology [address] [place] [address] Alaina Jensen, MASS SPECTROMETRY MANAGER [address] [place] [address] documented as of this encounter [...] has been complete d for the patient 07/25/2025 12:02 PM EDT A Body Mass Index follow-up plan has been documented for the patient 07/25/2025 1:35 PM EDT documented as of this encounter Care Teams Backfiller Relationship Specialty Start Date End Date Savanah Delgado PA [address] [place] [address] PCP - General 05/06/23 documented as of this encounter
--- OUTSIDE RECORDS SUMMARY | 2025-10-08 19:55 | XMS_ITS | Clinical Summary ---
Author Organization [facility] Address [address] [place] [address] Care Team Providers Care Workers Compensation Claims Analyst Name Role Phone Savanah Delgado Primary [...] puffs every 6 hours as needed. 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 Need for RSV vaccination 10/20/2023 [...] glucola for next visit -will call [place] for psychosis/anxiety medication management -RTC 2 weeks [...] Problem Noted Date Diagnosed Date Resolved Date Diarrhea 11/08/2023 07/08/2025 state, incidental 08/13/2023 1 11/23/2022 Assessment & [...] Encounters Date Type Department Care Team Description 08/09/2025 Results Follow-Up Obstetrics & Gynecology [address] [place] [address] Alaina Jensen APRN 07/25/2025 11:30 AM EDT Office Visit Obstetrics & Gynecology [address] [place] [address] Alaina Jensen APRN Encounter for gynecological examination without abnormal finding (Primary Dx) 07/25/2025 Travel 07/18/2025 Telephone Obstetrics & Gynecology [address] [place] [address] Ileana Wright MD from Last 3 Months Immunizations Immunization Administration Dates Next Due Rsv, Bivalent, Protein Subun it Rsvpref, Diluent Reconstituted, 0.5mL, PF 10/20/2023 Tdap 09/08/2023 Family History Medical History Relation Name Comments defects Brother 1 Milind Valerio Intellectual Disability Brother 1 Milind Valerio Anxiety disorder Brother 2 Mark Valerio Jr Depression Brother 2 Mark Valerio Jr Intellectual Disability Brother 2 Mark Davisea Jr Mental illness Brother 2 Mark Davisea Jr Arthritis Father Mark Valerio Drug abuse Father Mark Valerio Mental illness Father Mark Valerio No Known Problems Father's Brother Alcohol abuse Father's Sister Drug abuse Father's Sister Diabetes Maternal Grandfather Obesity Maternal Grandfather Cardiac disorder Maternal Grandmother Diabetes Maternal Grandmother Obesity Maternal Grandmother Anxiety disorder Mother Vania Valerio Cardiac disorder Mother Vania Valerio Depression Mother Vania Valerio Diabetes Mother Vania Valerio Mental illness Mother Vania Valerio Miscarriages / Stillbirths Mother Vania Valerio Obesity Mother Vania Valerio No Known Problems Mother's Brother No Known Problems Paternal Grandfather No Known Problems Paternal Grandmother Anxiety disorder Sister 1 Leslie Davisea Depression Sister 1 Leslie Davisea Mental illness Sister 1 Leslie Valerio No Known Problems Sister 2 defects Son 1 Sigifredo Pfeiffer Hearing loss Son 1 Sigifredo Pfeiffer Immunodeficiency Son 1 Sigifredo Pfeiffer Intellectual Disability Son 1 Sigifredo Pfeiffer No Known Problems Son 2 Anesthesia problems Neg Hx Malig Hyperthermia Neg Hx Relation Name Status Comments Brother 1 Milind Valerio Brother 2 Mark Valerio Jr Alive Father Mark Valerio Alive Father's Brother Alive Father's Sister Alive Maternal Grandfather Maternal Grandmother Mother Vania Valerio Alive Mother's Brother Alive Other Paternal Grandfather Paternal Grandmother Sister 1 Leslie Valerio Alive Sister 2 Alive Son 1 Sigifredo [...] things needed for daily living? No 01/22/2025 [place] Depression Scale Answer Date Recorded [place] Depression Scale Total 8 12/20/2023 The thought [...] any time in the past 12 m [facility], were you homeless or living in a group home (including now)? No 01/22/2025 Utilities Answer [...] Sign Reading Time Taken Comments Blood Pressure 117/77 07/25/2025 11:59 AM EDT Pulse 112 07/25/2025 11:59 AM EDT Temperature 36.6 C (97.9 F) 07/25/2025 11:59 AM EDT Respiratory Rate 18 02/12/2025 10:46 AM EDT Oxygen Saturation 97% 07/25/2025 11:59 AM EDT Inhaled Oxygen Concentration - - Weight 106 kg (233 lb 14.5 oz) 07/25/2025 11:59 AM EDT Height 167.6 cm (5' 5.98 ) 01/19/2025 6:27 PM ED T Body Mass Index 37.77 01/19/2025 6:27 PM EDT Plan of Treatment Upcoming Encounters Date Type Department Care Team (Late st Contact Info) Description 10/12/2025 11:45 AM EST Office Visit Obstetrics & Gynecology [address] [place] [address] Alaina Jensen, HELICOPTER OFFICER [address] [place] [address] Health Maintenance Due Date Last Done Comments [facility]-Infant/Child/Adol SDOH Screenings 2000 HPV Vaccines (1 - 3-dose series) 2015 [facility]-Pneumococcal Vaccine: Pediatrics (0 to 5 Years) and At-Risk Patients (6 to 49 Years) (1 of 2 - PCV) 2019 11/08/2001, 07/07/2001, 04/19/2001, Additional history exists [id number] Vaccine ( - season) 2025 05/13/2021, 04/14/2021 [facility]-Influenza Vaccine (#1) 2025 [facility]- SDOH Screenings 07/24/2025 [facility]-Adult SDOH Screenings 07/24/2025 01/22/2025 [facility]-Depression Screening 07/25/2026 025, 11/08/2024, 12/20/2023 [facility]-Pap Smear 07/25/2028 07/25/2025 [facility]-DTaP,Tdap,and Td Vaccines (9 - Td or Tdap) 09/08/2033 09/08/2023, 05/20/2017, 03/25/2012, Additional history exists [facility]-Zoster Vaccines (1 of 2) 2050 03/25/2012, 11/08/2001 [facility]-HIB Vaccines Completed 11/08/2001, 12/2000, 02/03/2001 [facility]-Hepatitis B Vaccines Completed 002, 02/03/2001, 2000 [facility]-IPV Vaccines Completed 11/13/2004, , 04/19/2001, Additional history exists [facility]-Varicella Vaccines Completed 03/25/2012, 2001 [facility]-Hepatitis A Vaccines Completed 11/29/2018, 05/2018 [facility]-HIV Screening Completed 05/06/2023 [facility]-Hepatitis C Screening Completed 05/06/2023 [facility]-RSV Vaccine: 60+ Years or Discontinued 10/20/2023 [facility]-Obesity Intervention Completed 025, 05/09/2025, 02/12/2025, Additional history exists [facility]-Rotavirus Vaccines Aged Out No lo nger eligible based on patient's age to complete this topic Goals Goal Patient Goal Type Associated Problems Recent Progress Patient-Stated? Author Delayed Delivery Care Plan CPM S22 PP LABOR (OBSTETRICS) No Open Scheduling, Background Procedures Procedure Name Priority Date/Time Associated Diagnosis Comments POCT , URINE Routine 07/25/2025 12:28 PM EDT Encounter for gynecological examination without abnormal finding PAP TEST - CYTOLOGY Routine 07/25/2025 1 2:12 PM EDT Encounter for gynecological examination without abnormal finding HIGH RISK HUMAN PAPILLOMAVIRUS (HPV) PCR WITH GENOTYPING Routine 07/25/2025 12:12 PM EDT Encounter for gynecological examination without abnormal finding CHLAMYDIA TRACHOMATIS DNA BY PCR Routine 07/25/2025 12:12 PM EDT Encounter for gynecological examination without abnormal finding NEISSERIA GONORRHEA DNA BY PCR Routine 07/25/2025 12:12 PM EDT Encounter for gynecological examination without abnormal finding TRICHOMONAS VAGINALIS ANTIGEN Routine 07/25/2025 12:12 PM EDT Encounter for gynecological examination without abnormal finding HEPATITIS C ANTIBODY W/REFLEX TO HCV QUANT PCR Routine 05/06/2023 9:46 AM EDT state, incidental HIV 1/2 ANTIBODY/ANTIGEN SCREEN WITH REFLEX TO HIV I/II DIFFERENTIATION Routine 05/06/2023 9:46 AM EDT state, incidental from Last 3 Months or Most Recently Relevant to Health Maintenance Results * POCT Urine (07/25/2025 12:28 PM EDT) Urine - Point of Care Negative Negative - women after 7 weeks gestation and dilute urine (specific gravity <1.010) may have false negative results. Plasma HCG testing is recommended. Test performed at Point of Care. INTERNAL QC OK, PREG URINE yes KIT LOT NUMBER, PREG URINE [phone] KIT EXPIRATION DATE, PREG URINE 09/24/2026 Urine Urine specimen obtained by clean catch procedure / Unknown 07/25/2025 12:28 PM EDT us Alaina Jensen APRN POINT OF CARE TEST ENTER/ED IT ORDERABLES Final Result * (ABNORMAL) High Risk Human Papillomavirus (HPV) PCR with Genotyping (07/25/2025 12:12 PM EDT) High Risk Human Papillomavirus (HPV) PCR Interpretation Detected(A) Not Detected 08/08/2025 5:14 PM EDT [facility] High Risk Human Papillomavirus (HPV) PCR Genotype 16 Not Detected Not Detected 08/08/2025 5:14 PM EDT [facility] High Risk Human Papillomavirus (HPV) PCR Genotype 18 Result Not Detected Not Detected 08/08/2025 5:14 PM EDT [facility] (HPV) Other High Risk HPV Genotypes (Not 16 or 18) Detected(A) Not Detected 08/08/2025 5:14 PM EDT [facility] Thin Prep Cervix uteri structure / Unknown 07/25/2025 12:12 PM EDT 08/06/2025 3:46 PM EDT Narrative [facility] - 08/08/2025 5:14 PM EDT This test is performed by the [employer] 4800 instrument Real Time PCR HPV DNA and genotype testing. This test is FDA approved for use with cervical and endocervical specimens. This test is used for clinical purposes. It should not be regarded as investigational or for research. The test specifically identifies HPV-16 and HPV-18 while concurrently detecting the rest of the high risk types (31, 33, 35, 39, 45, 51, 52, 56, 58, 59, 66 and 68). The [facility] Clinical Microbiology Laboratory is certified under the Clinical Laboratory Improvement Amendments of 1988 (CLIA-88) as qualified to perform high complexity clinical laboratory testing. Alaina Jensen APRN LAB MICROBIOLOGY - GENERAL ORDERABLES Final Result [facility] [address] [place] [address] * Trichomonas Vaginalis Antigen (07/25/2025 12:12 PM EDT) Trichomonas vaginalis Antigen Result Negative Negative 07/26/2025 9:54 AM EDT [facility] Swab Vaginal structure / Unknown Non-blood Collection / Unknown 07/25/2025 12:12 PM EDT 07/25/2025 6:50 PM EDT Narrative [facility] - 07/26/2025 9:54 AM EDT This test was developed and its performance characteristics determined by [facility]. It has not been cleared or approved by the US Food and Drug Administration. FDA does not require this test to go through premarket FDA review. This test is used for clinical purposes. It should not be regarded as investigational or for research. This laboratory is certified under the Clinical Laboratory Improvement Amendments (CLIA) as qualified to perform high complexity clinical laboratory testing. Alaina B Mikey HELICOPTER OFFICER LAB MICROBIOLOGY - GENERAL ORDERABLES Final Result Performing Organization Address [facility] Co de Phone Number [facility] [address] [place] [address] * Chlamydia trachomatis DNA by PCR (07/25/2025 12:12 PM EDT) Chlamydia trachomatis DNA PCR Result Not Detected Not Detected 07/26/2025 2:33 PM EDT [facility] Urine Vaginal structure / Unknown Non-blood Collection / Unknown 07/25/2025 12:12 PM EDT 07/25/2025 6:51 PM EDT Narrative [facility] - 07/26/2025 2:33 PM EDT This test is performed by the [employer] instrument for Real Time PCR C. trachomatis and N. gonorrhea. This test is FDA approved for use with endocervical, vaginal, and urine specimens. This test is used for clinical purposes. It should not be regarded as invesigational or for research. The [facility] is certified under the Clinical Laboratory Improvement Amendments of 1988 (CLIA-88) as qualified to perform high complexity clinical laboratory testing. Alaina Jensen APRN LAB MICROBIOLOGY - GENERAL ORDERABLES Final Result Performing Organization Address [facility] Co de Phone Number [facility] [address] [place] [address] * Neisseria gonorrhea DNA by PCR (07/25/2025 12:12 PM EDT) Neisseria gonorrhea DNA PCR Result Not Detected Not Detected. 07/26/2025 2:33 PM EDT [facility] Urine Vaginal structure / Unknown Non-blood Collection / Unknown 07/25/2025 12:12 PM EDT 07/25/2025 6:51 PM EDT Narrative [facility] - 07/26/2025 2:33 PM EDT This test is performed by the [employer] [id number] instrument for Real Time PCR C. trachomatis and N. gonorrhea. This test is FDA approved for use with endocervical, vaginal, and urine specimens. This test is used for clinical purposes. It should not be regarded as invesigational or for research. The [facility]biology [facility] is certified under the Clinical Laboratory Improvement Amendments of 1988 (CLIA-88) as qualified to perform high complexity clinical laboratory testing. Alaina Jensen APRN LAB MICROBIOLOGY - GENERAL ORDERABLES Final Result [facility] [address] [place] [address] * (ABNORMAL) Pap Test (07/25/2025 12:12 PM EDT) Case Report Cytology Case: [id number] Authorizing Provider: Alaina Jensen APRN Collected: 07/25/2025 1212 Ordering Location: Obstetrics & Gynecology Received: 07/26/2025 0929 First Screen: Roselyn Strong Rescreen: Christiane Mccracken Pathologist: Nasrin Queen MD Specimen: ThinPrep Pap Test, Liquid-Based Cervical/Vaginal 08/02/2025 1:27 PM EDT [facility] Interpretation ATYPICAL SQUAMOUS CELLS OF UNDETERMINED SIGNIFICANCE (ASCUS)(A) 08/02/2025 1:27 PM EDT [facility] at 1327 EDT Specimen Adequacy Satisfactory for evaluation; endocervical/tra nsformation zone component present. Slide imaged by the ThinPrep Imaging system and selected 22 viveros reviewed then full manual screening. 08/02/2025 1:27 PM EDT [facility] Cervical cytology is a screening test primarily for squamous cancers and precursors and has associated false negative and positive results. New technologies such as liquid based sampling may decrease but will not eliminate all false negative results. Regular screening and follow-up of unexplained clinical signs and symptoms are recommended to minimize false negative results. Please see the ASCCP website (www.asccp.org)f or followup recommendations. If HPV testing was requested, correlation with the results is suggested (please call Microbiology at [phone] for results). 08/02/2025 1:27 PM EDT [facility] Menstrual Status Cyclic 08/02/20 1:27 PM EDT [facility] History of Hysterectomy Not Applicable 08/02/2025 1:27 PM EDT [facility] Contraceptive History Not Applicable 08/02/2025 1:27 PM EDT [facility] Screening Type Routine Screen 2024 1:27 PM EDT [facility] High Risk? No 08/02/2025 1:27 PM EDT [facility] HPV Testing Requested? Request HPV Testing if ASCUS (Women 25 Years or Older) 08/02/2025 1:27 PM EDT [facility] Previous Cancer History No 08/02/2025 1:27 PM EDT [facility] Clinical Information Z01.419 - Encounter for gynecological examination without abnormal finding [ICD-10-CM] 08/02/2025 1:27 PM EDT [facility] Last Menstrual Period 06/18/2025 08/02/2025 1:27 PM EDT [facility] Thin Prep Vaginal and cervical cytologic material / Unknown 07/25/2025 12:12 PM EDT 07/26/2025 9:29 AM EDT us Alaina Jensen APRN LAB CYTOLOGY ORDERABLES Fin al Result [facility] [address] [place] [address] * HIV 1 & 2 Antibody/Antigen Screen (05/06/2023 9:46 AM EDT) HIV 1 & 2 Antibody/Antigen Screen Non Reactive Non Reactive 05/06/2023 2:01 PM EDT [facility] Comment:Screening for HIV 1 & 2 antibodies, and P24 antigen is NONREACTIVE. No confirmatory testing is required. Blood Venous blood specimen / Unknown Venipuncture / Unknown 05/06/2023 9:46 AM EDT 05/06/2023 1:04 PM EDT us Ileana Wright MD LAB BLOOD ORDERABLES Fin al Result [facility] [address] [place] [address] * Hepatitis C Antibody (05/06/2023 9:46 AM EDT) Hepatitis C Antibody Negative Negative 05/06/2023 2:01 PM EDT [facility] Blood Venous blood specimen / Unknown Venipuncture / Unknown 05/06/2023 9:46 AM EDT 05/06/2023 1:04 PM EDT us Ileana Wright MD LAB BLOOD ORDERABLES Fin al Result Performing Organization Address [facility] Co de Phone Number [facility] [address] [place] [address] from Last 3 Months or Most Recently Relevant to Health Maintenance Additional Health Concerns Active Problems Noted Date Diagnosed Date CPM S22 PP LABOR (OBSTETRICS) 05/06/2023 Insurance [facility] MEDICAID Advance Directives * Full Code (Latest Code Status on File) Date Activated Date Inactivated Comments 01/19/2025 3:11 PM 01/22/2025 1:22 PM Care Teams Workers Compensation Claims Analyst Relationship Specialty Start Date End Date Savanah Delgado PA [address] [place] [address] PCP - General 05/06/23
--- OUTSIDE RECORDS SUMMARY | 2025-10-08 19:55 | XMS_ITS | Encounter Summary ---
Author Organization [facility] Address [address] [place] [id number] Care Team Providers Care Spring Forger Name Role Phone Savanah Delgado Primary Care Provider [phone] Encounter Details Date Type Department Care Team (Late st Contact Info) Description 12/25/2024 Lab Requisition [facility] [address] [place] [address] Kemar Reddy MD [address] [place] [address] Enlarged lymph nodes, unspecified Social History Tobacco [...] Recorded Patient Health Questionnaire-2 Score 0 11/08/2024 [place] Depression Scale Answer Date Recorded [place] Depression Scale Total 8 12/20/2023 The thought [...] EST Office Visit Obstetrics & Gynecology [address] [place] [address] Alaina Jensen, BEER STILL RUNNER COMPOUNDER [address] [place] [address] documented as of this [...] 10:38 AM EDT) Case Report Cytology Case: [id number] Authorizing Provider: Kemar Reddy MD Collected: 12/25/2024 1038 Ordering Location: [facility] Lab Received: 12/25/2024 1038 Pathologist: Fernanda Downs MD Specimen: Lymph Node, [id number] 12/27/2024 1:48 PM EDT [facility] Final Diagnosis OUTSIDE SLIDES LABELED [id number], COLLECTED 12/15/24: A. LYMPH NODE, STATION 4R, FNA: -NO EVIDENCE OF MALIGNANCY. -LYMPHOID TISSUE. B. LYMPH NODE, STATION 7, FNA: -NO EVIDENCE OF MALIGNANCY. -LYMPHOID TISSUE WITH NECROSIS AND POORLY-FORMED GRANULOMAS. -GMS STAIN NEGATIVE FOR FUNGI. -AFB STAIN NONCONTRIBUTORY DUE TO HIGH BACKGROUND STAINING. C. LYMPH NODE, STATION 10R, FNA: -NO EVIDENCE OF MALIGNANCY. -LYMPHOID TISSUE. 12/27/2024 1:48 PM EDT [facility] at 1348 EDT Comment By report, no immunophenotypic abnormalities are found by flow cytometry. Clinical correlation is suggested. 12/27/2024 1:48 PM EDT [facility] Clinical Information R59.9 - Enlarged lymph nodes, unspecified [ICD-10-CM] 12/27/2024 1:48 PM EDT [facility] Gross Description [id number]. [id number] Received along with a corresponding pathology report from Pathology & Cytology Laboratory are 8 slides labeled outside case: [id number] collected on 12/15/2024. 12/27/2024 1:48 PM EDT [facility] Fine Needle Aspirate Lymph node specimen / Unknown 12/25/2024 10:38 AM EDT 12/25/2024 10:38 AM EDT us Kemar Reddy MD LAB PATHOLOGY ORDERABLES Fin al Result [facility] [address] [place] [address] documented in this encounter Visit Diagnoses Diagnosis [...] documented as of this encounter Care Teams Spring Forger Relationship Specialty Start Date End Date Savanah Delgado PA [address] [place] [address] PCP - General 05/06/23 documented as of this encounter
--- OUTSIDE RECORDS SUMMARY | 2025-10-08 19:55 | XMS_ITS | Encounter Summary ---
Author Organization [facility] Address [address] [place] [address] Care Team Providers Care Adult Specialist Name Role Phone Savanah Delgado Primary Care Provider [phone] Encounter Details Date Type Department Care Team (Late st Contact Info) Description 12/02/2024 Orders Only External Location [address] [place] [phone] Provider, External Social History Tobacco Use Types [...] Recorded Patient Health Questionnaire-2 Score 0 11/08/2024 Stewart Depression Scale Answer Date Recorded Stewart Depression Scale Total 8 12/20/2023 The thought [...] AM EST Office Visit Obstetrics & Gynecology [address] [place] [phone] Alaina Jensen, LABORER HOISTING [address] [place] [address] documented as of this encounter [...] documented as of this encounter Care Teams Adult Specialist Relationship Specialty Start Date End Date Savanah Delgado PA [address] [place] [address] PCP - General 05/06/23 documented as of this encounter
--- OUTSIDE RECORDS SUMMARY | 2025-10-08 19:55 | XMS_ITS | Encounter Summary ---
Author Organization [facility] Address [address] [place] [address] Care Team Providers Care Resin Mixer Name Role Phone Savanah Delgado Primary Care Provider [phone] Encounter Details Date Type Department Care Team (Late st Contact Info) Description 12/02/2024 Orders Only External Location [address] [place] [id number] Provider, External Social History Tobacco Use Types [...] Recorded Patient Health Questionnaire-2 Score 0 11/08/2024 Sheldon Depression Scale Answer Date Recorded Sheldon Depression Scale Total 8 12/20/2023 The thought [...] AM EST Office Visit Obstetrics & Gynecology [address] [place] [phone] Alaina Jensen, SMALL PARTS SHAPER OPERATOR [address] [place] [address] documented as of this encounter [...] documented as of this encounter Care Teams Resin Mixer Relationship Specialty Start Date End Date Savanah Delgado PA [address] [place] [address] PCP - General 05/06/23 documented as of this encounter
--- OUTSIDE RECORDS SUMMARY | 2025-10-08 19:55 | XMS_ITS | Encounter Summary ---
Author Organization [facility] Address [address] [place] [address] Care Team Providers Care Analytical Strategist Name Role Phone Savanah Delgado Primary Care Provider [phone] Encounter Details Date Type Department Care Team (Late st Contact Info) Description 10/21/2023 Orders Only External Location [address] [place] [phone] Provider, External Social History Tobacco Use Types [...] EST Office Visit Obstetrics & Gynecology [address] [place] [address] Alaina Jensen, CHARTER PILOT [address] [place] [address] documented as of this encounter [...] documented as of this encounter Care Teams Analytical Strategist Relationship Specialty Start Date End Date Savanah Delgado PA [address] [place] [address] PCP - General 05/06/23 documented as of this encounter
--- OUTSIDE RECORDS SUMMARY | 2025-10-08 19:55 | XMS_ITS | Encounter Summary ---
Author Organization [facility] Address [address] [id number] Care Team Providers Care Shell Shop Supervisor Name Role Phone Savanah Delgado Primary Care Provider [phone] Encounter Details Date Type Department Care Team (Late Contact Info) Description 04/28/2023 Orders Only External Location [address] [place] [phone] Provider, External Social History Tobacco Use Types [...] EST Office Visit Obstetrics & Gynecology [address] [place] [address] Alaina Jensen, EDITOR INDEX [address] [place] [address] documented as of this encounter [...] on filedocumented in this encounter Care Teams Shell Shop Supervisor Relationship Specialty Start Date End Date Savanah Delgado PA [address] [place] [address] PCP - General 05/06/23 documented as of this encounter
--- NOTE | 2025-10-08 20:03 | CT_ITS ---
PROCEDURE INFORMATION: Exam: CT Head Without Contrast Exam date and time: 10/08/2025 8:48 PM Age: 24 years old Clinical indication: Pain; Headache; Migraine; Additional info: Migraine with blurry vision and intermittent spots TECHNIQUE: Imaging protocol: Computed tomography of the head without contrast. Radiation optimization: All CT scans at this facility use at least one of these dose optimization techniques: automated exposure control; mA and/or kV adjustment per patient size (includes targeted exams where dose is matched to clinical indication); or iterative reconstruction. COMPARISON: CT HEAD/BRAIN WO CON 05/12/2025 7:13 PM FINDINGS: Brain: No acute hemorrhage, edema, or mass effect. Cerebral ventricles: No hydrocephalus. Pituitary gland and sella: Empty sella. Paranasal sinuses: Severe left maxillary sinus mucosal thickening with small aerated secretions. Near-complete opacification of the right sphenoid sinus. Additional scattered [id number] paranasal sinus mucosal thickening. Mastoid air cells: The tympanomastoid cavities are clear. Orbital cavities: Mild flattening of the posterior globes bilaterally. Bones: Unremarkable. No acute fracture. Soft tissues: Unremarkable. IMPRESSION: 1. No acute hemorrhage, edema, or mass effect. 2. Empty sella and mild flattening of the posterior globes bilaterally, nonspecific, but which may be seen in the setting of idiopathic intracranial hypertension. Correlate clinically. 3. Scattered paranasal sinus mucosal disease with aerated secretions in the left maxillary sinus. Correlate clinically for acute sinusitis.
--- NOTE | 2025-10-08 20:28 | ECG_ITS ---
APPROVED REPORT Exam: Resting ECG HR:80 bpm ECG Measurements Heart Rate 80 AXES TN 127 P 24 QRSd 113 QRS 75 QT 376 T 15 QTc 412 Conclusion Normal sinus rhythm without acute ST or T wave changes concerning for ischemia Electronically signed by : Miranda Godoy, 10/10/2025 01:07:35
[2025-10-08 20:32] LABS: Hematocrit 38.6 % (37.0-47.0); Hemoglobin 12.2 g/dL (12.2-16.2); Immature Granulocytes % 0.3 %; Mean Corpuscular HGB Conc 31.6 g/dL (31.8-35.4); Mean Corpuscular Hemoglobin 24.1 pg (27.0-31.2); Mean Corpuscular Volume 76.3 fl (81-99); Nucleated Red Blood Cells % 0 %; Platelet Count 297 K/mm3 (142-424); Red Blood Count 5.06 M/mm3 (4.20-5.40); Red Cell Distribution Width-SD 39.3 fL; White Blood Count 7.9 K/mm3 (4.8-10.8)
[2025-10-08] MEDS: droPERidol 5MG/2ML VIAL 2.5 MG IV (20:32)
[2025-10-08 20:38] LABS: HCG Qualitative, Serum Negative (Negative)
[2025-10-08 20:44] LABS: Alanine Aminotransferase 20 U/L (12-78); Albumin Level 4.6 g/dl (3.5-5.0); Albumin/Globulin Ratio 1.5 (1.1-1.8); Alkaline Phosphatase 85 U/L (38-126); Anion Gap 10.6 mEq/L (5-15); Aspartate Amino Transferase 25 U/L (14-36); Bilirubin,Total 0.3 mg/dl (0.2-1.3); Blood Urea Nitrogen 17 mg/dl (7-17); Calcium 8.8 mg/dl (8.4-10.2); Carbon Dioxide 27 mmol/L (22.0-30.0); Chloride 105 mmol/L (98-107); Creatinine Clearance Estimated 94 mL/min (50-200); Creatinine,Serum 0.80 mg/dl (0.52-1.04); Estimated Glomerular Filt Rate 88 ml/min (>60); GFR (African American) 107 ML/MIN (>60); Globulin 3.0 g/dL (1.3-3.2); Glucose 111 mg/dl (74-100); Potassium 3.6 mmoL/L (3.5-5.1); Sodium 139 mmol/L (136-145); Total Protein,Serum 7.6 g/dl (6.3-8.2)
[2025-10-08] MEDS: KETOROLAC 30MG/ML VIAL 30 MG IV (21:36)
[2025-10-08] MEDS: PROCHLORPERAZINE 10MG/2ML VIAL 10 MG IV (21:36)
[2025-10-08] MEDS: 0.9 % SODIUM CHLORIDE 1000ML 1,000 ML 999 ML IV (21:37)
[2025-10-08] MEDS: MAGNESIUM SULFATE IN WATER 2 GM/50 ML PIGGYBACK IV (21:37)
== END 2025-10-08 23:18 | disposition home or self-care (01) ==
PROVIDERS: Emergency Provider Student in an Organized Health Care Education/Training Program; PCP Nurse Practitioner Family
DX: G43.909 Migraine, unspecified, not intractable, without status migrainosus (principal); F17.290 Nicotine dependence, other tobacco product, uncomplicated
CPT/HCPCS: 70450; 80053; 84703; 85025; 93005; 96365; 96375; 99285; J0780; J1200; J1790; J1885; J3475; J7030